=== PATIENT | male | born 1955 | race African-American/Black ===

== ENCOUNTER 2017-01-05 14:54 | Inpatient (IN) | payer MEDICARE, MEDICAID ==
[2017-01-05 16:44] LABS: Lactic Acid - Sepsis 1.1 mmol/L (0.5-2.2)
[2017-01-05] MEDS ORDERED: Acetaminophen 325 MG TAB PO PRN (17:07)
--- NOTE | 2017-01-05 17:57 | HP ---
PRIMARY CARE PHYSICIAN: Dell Crawford M.D. CHIEF COMPLAINT: Fever. HISTORY OF PRESENT ILLNESS: Mr. Flores is a pleasant 61-year-old gentleman who was seen at [facility] on 01/05/2017 following transfer from emergency room at [place]. He is able to provide limited history. Collateral history was obtained from review of the medical r ecord and discussion with the emergency room physician. Mr. Flores reportedly had fever of 104-104.9 degrees Fahrenheit. He reports that yesterday he fel t ill. He reports vomiting. He reports abdominal pain, but is unable to describe it further. He d enies any chest pain or shortness of breath. He ate breakfast today and felt warm to his caregiver. The caregiver brought him to the emergency room. Mr. Flores was hospitalized at [facility] from 11/03/2016-11/13/2016 for ac [place] on chronic kidney failure and bacteremia due to Klebsiella and Streptococcus. During that hospi talization, his PICC line was removed and he had Urbano catheter placed. The following complete review of systems was negative, unless otherwise mentioned in the HPI or belo w: Constitutional: Weight loss or gain, sense of well-being, ability to conduct usual activities, exer cise tolerance. Skin/Breast: Rash, itching, changes in hair growth or loss, nail changes, breast lumps, tenderness, swelling, nipple discharge. Eyes: Vision, double vision, tearing, blind spots, pain. ENT/Mouth: Headaches (location, time of onset, duration, precipitating factors), vertigo, lighthead edness, injury. Vision, double vision, tearing, blind spots, pain, nose bleeding, colds, obstruction , discharge, dental difficulties, gingival bleeding, dentures, neck stiffness, pain, tenderness, mas ses in thyroid or other areas. Cardiovascular: Precordial pain, substernal distress, palpitations, syncope, dyspnea on exertion, o rthopnea, nocturnal paroxysmal dyspnea, edema, cyanosis, hypertension, heart murmurs, varicosities, phlebitis, claudication. Respiratory: Pain, shortness of breath, wheezing, stridor, cough, hemoptysis, fever or night sweats . Gastrointestinal: Poor appetite, dysphagia, indigestion, abdominal pain, heartburn, eructation, tremayne sea, vomiting, hematemesis, jaundice, constipation, or diarrhea, abnormal stools (da-colored, lionel y, bloody, greasy, foul smelling), flatulence, hemorrhoids, recent changes in bowel habits. Genitourinary: Urgency, frequency, dysuria, nocturia, hematuria, polyuria, oliguria, unusual (or ch crista in) color of urine, stones, hesitancy, change in size of stream, dribbling, acute retention or incontinence, libido, potency. Musculoskeletal: Pain, swelling, redness or heat of muscles or joints, limitation, of motion, muscu lar weakness, atrophy, cramps. Neurologic/Psychiatric: Convulsions, paralyses, tremor, incoordination, paraesthesias, difficulties with memory of speech, sensory or motor disturbances, or muscular coordination (ataxia, tremor), em otional problems, anxiety, depression, previous psychiatric care, unusual perceptions, hallucination s. Allergy/Immunologic: Skin rash, anemia, bleeding tendency, polydipsia, polyuria, intolerance to hea t or cold. 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 ALLERGIES: The patient is allergic to CEFTRIAXONE and VANCOMYCIN. The allergy to VANCOMYCIN is unc lear. It also appears that he may have had an exfoliative reaction to MEROPENEM during the last hos pitalization. CURRENT MEDICATIONS: These include Tylenol p.r.n., Questran 8 grams 2 times a day, Lomotil daily, P robiotic 2 times a day, morphine sulfate 0.6 mL 4 times a day, multivitamins daily, olanzapine daily , Zofran 4 mg every 6 hours as needed. FAMILY HISTORY: Biological parents unknown. SOCIAL HISTORY: The patient lives at home with foster parents. No history of tobacco use, alcohol use or recreational drug use. PHYSICAL EXAMINATION: GENERAL: On examination, Mr. Flores is awake and alert, not in acute distress. VITAL SIGNS: Blood pressure is 87/50, pulse is 72, he is breathing at rate of 21 and saturating 94% on room air. He is afebrile. EYES: He has scleral icterus. No conjunctival pallor. ENT: Dry mucosal membranes, no oropharyngeal erythema or exudates. NECK: Supple, nontender, normal range of movement, trachea is midline. RESPIRATORY: Accessory muscles of breathing are not active. Chest wall movements are symmetric chandler aterally. LUNGS: Clear to auscultation without wheeze, rhonchi or crepitations. CARDIOVASCULAR: S1 and S2 are heard, regular. Peripheral pulses palpable. No carotid bruit, no pe ricardial rub. ABDOMEN: Soft, mild right upper quadrant tenderness, no guarding or rigidity, bowel sounds heard, n o hepatomegaly, no splenomegaly. He has right lower quadrant ostomy. NEUROLOGIC: Cranial nerves II-XII are intact. Deep tendon reflexes are 2+. MUSCULOSKELETAL: Power is 5/5 in all 4 extremities, normal range of movement at all major extremity joints. PSYCHIATRIC: Normal mood and normal affect, patient is oriented to person and place, not to time. SKIN: No rashes or subcutaneous nodules. LYMPHATIC: No cervical lymphadenopathy. LABORATORY DATA: Mr. Flores's labs and investigations were reviewed. He had a chest x-ray today at [facility] [place], which did not show any pulmonary infiltrates. He also had a CT scan of the abdomen and pelvis, which showed bibasilar atelectasis, wall thickening involving multiple loops of small b owel within the left upper quadrant of the abdomen, which may reflect enteritis, wall thickening inv olving the bladder which is stable compared to previous imaging. Laboratory investigations show terra kocytosis with 21,700 white cells, of which 87% are neutrophils, normocytic anemia with hemoglobin o f 10.5, normal platelet count, normal electrolytes, elevated blood urea nitrogen of 26, elevated cre atinine of 1.92, last known creatinine 1.50 on 12/29/2016, elevated total bilirubin of 2.4, elevated AST of 54, elevated ALT of 91, elevated alkaline phosphatase of 570, slightly elevated BNP of 104, normal albumin and urinalysis showing protein, ketones, and blood, but negative for nitrites and terra kocyte esterase. He also had a urine toxicology screen, which showed opiates. ASSESSMENT AND PLAN: Mr. Flores is a pleasant 61-year-old gentleman who was seen at [facility]. His problem list includes: 1. Sepsis: Suspected to be secondary to intra-abdominal infection. He will be admitted to the [facility] and treated with intravenous fluids as well as intravenous levofloxacin and Flagyl. I will al so request Infectious Disease Service consultation, given his previous complicated history with line infections. He currently has a Urbano catheter. In addition to the enteritis that was suspected on CT scan, his abnormal liver function tests raise the possibility of cholangitis. I will continue antibiotics and check ultrasound of the abdomen. 2. Chronic kidney disease: Renal function was done in the past. We will provide intravenous hydra tion and recheck. 3. Hypertension: Monitor vital signs, titrated antihypertensives as needed. 4. Schizoaffective disorder and mild mental retardation: Appears stable. 5. Gastroesophageal reflux disease: Stable. 6. We will consult dietitian regarding total parenteral nutrition. Patient reports that he also guillen s oral intake. Many thanks for allowing me to participate in your patient's care. Please feel free to contact me w ith any questions or concerns. LEVEL OF RISK: Moderate. LEVEL OF COMPLEXITY: Moderate.
[2017-01-05] MEDS ORDERED: Ondansetron ODT 4 MG TAB SL PRN (19:42)
[2017-01-05] MEDS ORDERED: Ondansetron HCl/PF 4 MG/2 ML Vial IVP PRN (19:42)
--- NOTE | 2017-01-05 19:43 | ULT ---
RIGHT UPPER QUADRANT ULTRASOUND: Date: 01-05-17 History: Abnormal liver function test. FINDINGS: Gallbladder is not visualized related to history of prior cholecystectomy. The liver is mildly enlarged in craniocaudal dimensions measuring 19 cm. No focal hepatic lesion is identified and the liver otherwise has a normal sonographic appearance. Common duct measures 0.75 cm in diameter which is within normal limits for post cholecystectomy farias ges. The limited visualized portions of the pancreas, visualized portions of the IVC, and right kidney de monstrate a normal sonographic appearance. The right kidney measures 11.5 cm in length. IMPRESSION: 1. Post cholecystectomy changes. 2. Mild hepatomegaly. Liver otherwise has a normal sonographic appearance. POS: [facility]
[2017-01-05] MEDS: Sodium Chloride 0.9% 1,000 ML IV SCH (21:29)
[2017-01-05] MEDS: Heparin 5,000 UNITS/ML VIAL SC SCH (21:29)
[2017-01-05] MEDS: metroNIDAZOLE 500 MG in Premix Bag 1 BAG IVPB SCH (22:37)
[2017-01-06] MEDS: metroNIDAZOLE 500 MG in Premix Bag 1 BAG IVPB SCH ×3 (05:18→22:28)
[2017-01-06 05:57] LABS: #Eosinphils 0.2 thou/uL (0.0-0.7); #Lymphocytes 2.1 thou/uL (1.20-3.40); #Monocytes 0.6 thou/uL (0.11-0.59); #Neutrophils 11.2 thou/uL (1.40-6.50); %Basophils 0.2 % (0.0-1.0); %Eosinophils 1.6 % (0.0-10.0); %Lymphocytes 14.7 % (21.0-51.0); %Monocytes 4.4 % (0.0-10.0); Hematocrit 30.2 % (42.0-52.0); Mean Platelet Volume 8.8 fL (7.4-10.4); Red Blood Cell (RBC) Count 3.47 mill/uL (4.70-6.10); White Blood Cell (WBC) Count 14.1 thou/uL (4.8-10.8)
[2017-01-06 06:21] LABS: Anion Gap 11 mmol/L (10-20); BUN (Urea Nitrogen) 26 mg/dL (8.4-25.7); Calc. Creatinine Clearance 76 mL/min (70-130); Calcium 8.5 mg/dL (7.8-10.44); Carbon Dioxide 21 mmol/L (22-29); Chloride 110 mmol/L (98-107); Estimated GFR-MDRD 68
[2017-01-06] MEDS: Heparin 5,000 UNITS/ML VIAL SC SCH ×3 (09:35→20:22)
[2017-01-06] MEDS: Sodium Chloride 0.9% 1,000 ML IV SCH ×3 (10:58→20:23)
--- NOTE | 2017-01-06 13:41 | PDOC.PN ---
- Subjective Encounter Start Date: 01/06/17 Encounter Start Time: 09:00 Pt seen for followup re: sepsis. Denies chest pain, shortness of bresath, fevers or chills. No nausea or vomiting. - Objective MAR Reviewed: Yes Vital Signs & Weight: Vital Signs (12 hours) Temp Pulse Resp BP Pulse Ox 01/06/17 08:00 97.9 F 50 L 18 118/70 18 L 01/06/17 04:00 96.4 F L 56 L 18 111/74 96 Weight Admit Weight 194 lb 1 oz Weight 194 lb 5 oz I&O: 01/05/17 01/06/17 01/07/17 06:59 06:59 06:59 Intake Total 900 0 Output Total 750 Balance 150 0 Result Diagrams: 01/07/17 04:07 01/07/17 04:07 EKG Reviewed by me: Yes (Tele: NSR) Phys Exam - Physical Examination Constitutional: NAD HEENT: moist MMs, oral pharynx no lesions Neck: supple Respiratory: no wheezing, no rales, no rhonchi, clear to auscultation bilateral Cardiovascular: RRR, no rub Gastrointestinal: soft, non-tender, no distention, positive bowel sounds RLQ ostomy+ Musculoskeletal: pulses present Neurological: moves all 4 limbs Psychiatric: normal affect Deviation from normal: Oriented to person and place, not to time Skin: no rash, normal turgor, cap refill <2 seconds Dx/Plan (1) Sepsis Code(s): A41.9 - SEPSIS, UNSPECIFIED ORGANISM Status: Acute (2) Leukocytosis Code(s): D72.829 - ELEVATED WHITE BLOOD CELL COUNT, UNSPECIFIED Status: Acute (3) On total parenteral nutrition (TPN) Code(s): Z78.9 - OTHER SPECIFIED HEALTH STATUS Status: Chronic (4) HTN (hypertension) Code(s): I10 - ESSENTIAL (PRIMARY) HYPERTENSION Status: Chronic (5) CKD (chronic kidney disease) stage 3, GFR 30-59 ml/min Code(s): N18.3 - CHRONIC KIDNEY DISEASE, STAGE 3 (MODERATE) Status: Chronic (6) Mental retardation Code(s): F79 - UNSPECIFIED INTELLECTUAL DISABILITIES Status: Chronic (7) Short gut syndrome Code(s): K91.2 - POSTSURGICAL MALABSORPTION, NOT ELSEWHERE CLASSIFIED Status: Chronic Comment: h/o total colectomy with ileostomy - Plan continue antibiotics, PT/OT, out of bed/ambulate, DVT proph w/heparin * . Continue levofloxacin and metronidazole, await cultures. Leucocytosis improving, pt is afebrile. Monitor vital signs, titrate antihypertensives as needed. Review of Systems - Review of Systems Constitutional: negative: Fever, Chills, Sweats, Weakness, Malaise Respiratory: negative: Cough, Dry, Shortness of Breath, Hemoptysis, SOB with Excertion, Pleuritic Pain, Sputum, Wheezing Cardiovascular: negative: Chest Pain, Palpitations, Orthopnea, Paroxysmal Noc. Dyspnea, Edema, Light Headedness Gastrointestinal: negative: Nausea, Vomiting, Abdominal Pain, Diarrhea, Constipation, Melena, Hematochezia Genitourinary: negative: Dysuria, Frequency, Incontinence, Hematuria, Retention - Medications/Allergies Allergies/Adverse Reactions: Allergies Allergy/AdvReac Type Severity Reaction Status Date / Time ceftriaxone sodium Allergy Verified 08/01/16 11:55 [From Rocephin] vancomycin Allergy Verified 11/11/16 11:59 Medications: Current Medications Acetaminophen (Tylenol) 650 mg PO Q4H PRN PRN Reason: Headache/Fever or Pain Heparin Sodium (Porcine) (Heparin) 5,000 units SC TID [facility] Last Admin: 01/06/17 09:35 Dose: 5,000 units Metronidazole 500 mg/ Device 100 mls @ 100 mls/hr IVPB Q8HR [facility] Last Admin: 01/06/17 05:18 Dose: 100 mls Sodium Chloride (Normal Saline 0.9%) 1,000 mls @ 100 mls/hr IV .Q10H [facility] Last Admin: 01/06/17 10:58 Dose: 1,000 mls Levofloxacin 500 mg/ Device 100 mls @ 100 mls/hr IVPB Q24HR [facility] Last Admin: 01/05/17 21:30 Dose: 100 mls Sodium Chloride (Flush - Normal Saline) 10 ml IVF Q12HR [facility] Last Admin: 01/06/17 11:55 Dose: Not Given Sodium Chloride (Flush - Normal Saline) 10 ml IVF PRN PRN PRN Reason: Saline Flush
[2017-01-07] MEDS: metroNIDAZOLE 500 MG in Premix Bag 1 BAG IVPB SCH ×3 (05:22→22:02)
[2017-01-07 05:45] LABS: #Eosinphils 0.1 thou/uL (0.0-0.7); #Lymphocytes 2.3 thou/uL (1.20-3.40); #Monocytes 0.6 thou/uL (0.11-0.59); #Neutrophils 8.4 thou/uL (1.40-6.50); %Basophils 0.1 % (0.0-1.0); %Eosinophils 1.1 % (0.0-10.0); %Monocytes 5.3 % (0.0-10.0); Hematocrit 33.6 % (42.0-52.0); Mean Platelet Volume 9.4 fL (7.4-10.4); Red Blood Cell (RBC) Count 3.86 mill/uL (4.70-6.10); White Blood Cell (WBC) Count 11.5 thou/uL (4.8-10.8)
[2017-01-07 05:58] LABS: Anion Gap 14 mmol/L (10-20); BUN (Urea Nitrogen) 21 mg/dL (8.4-25.7); Calc. Creatinine Clearance 74 mL/min (70-130); Calcium 9.1 mg/dL (7.8-10.44); Carbon Dioxide 19 mmol/L (22-29); Chloride 108 mmol/L (98-107); Estimated GFR-MDRD 67
[2017-01-07] MEDS: Heparin 5,000 UNITS/ML VIAL SC SCH ×3 (08:40→20:32)
[2017-01-07] MEDS ORDERED: ACIDOPHILUS PO SCH (09:00)
[2017-01-07] MEDS ORDERED: OLANZAPINE 7.5 MG PO SCH (09:00)
[2017-01-07] MEDS ORDERED: [UNRECOGNIZED DRUG - OTHER] PO SCH (09:00)
[2017-01-07] MEDS ORDERED: OLANZapine 5 MG TAB PO SCH (09:00)
[2017-01-07] MEDS ORDERED: Morphine IR 10 MG/5 ML UDCUP PO SCH (09:00)
[2017-01-07] MEDS ORDERED: BULGARICUS PO SCH (09:00)
[2017-01-07] MEDS ORDERED: Linezolid 600 MG in Premix Bag 1 BAG IVPB SCH (09:00)
[2017-01-07] MEDS ORDERED: [UNRECOGNIZED DRUG - OTHER] SC SCH (09:00)
[2017-01-07] MEDS: Lactinex Tablet PO SCH ×2 (09:44→20:31)
[2017-01-07] MEDS: Multivitamin W/ Minerals 1 TAB PO SCH (09:44)
[2017-01-07] MEDS: OLANZapine 5 MG TAB PO SCH (09:46)
[2017-01-07] MEDS: Sodium Chloride 0.9% 1,000 ML IV SCH ×2 (09:51→20:42)
--- NOTE | 2017-01-07 10:50 | PDOC.PN ---
- Subjective Encounter Start Date: 01/07/17 Encounter Start Time: 08:40 Pt seen for followup re: bacteremia. Denies chest pain, shortness of breath, fevers or chills. - Objective MAR Reviewed: Yes Vital Signs & Weight: Vital Signs (12 hours) Temp Pulse Resp BP Pulse Ox 01/07/17 08:00 97.7 F 64 18 117/64 97 01/07/17 00:00 97.7 F 58 L 16 129/68 98 Weight Admit Weight 194 lb 1 oz Weight 192 lb 0.001 oz I&O: 01/06/17 01/07/17 01/08/17 06:59 06:59 06:59 Intake Total 900 2160 240 Output Total 750 2550 Balance 150 -390 240 Result Diagrams: 01/07/17 04:07 01/07/17 04:07 Phys Exam - Physical Examination Constitutional: NAD HEENT: moist MMs, sclera anicteric, oral pharynx no lesions Neck: supple Respiratory: no wheezing, no rales, no rhonchi, clear to auscultation bilateral Cardiovascular: RRR, no rub Gastrointestinal: soft, non-tender, no distention, positive bowel sounds ostomy+ Musculoskeletal: pulses present Neurological: moves all 4 limbs Psychiatric: normal affect Deviation from normal: Oriented to person, place, not to time. Skin: no rash, normal turgor, cap refill <2 seconds Dx/Plan (1) Bacteremia Code(s): R78.81 - BACTEREMIA Status: Acute (2) Leukocytosis Code(s): D72.829 - ELEVATED WHITE BLOOD CELL COUNT, UNSPECIFIED Status: Acute (3) On total parenteral nutrition (TPN) Code(s): Z78.9 - OTHER SPECIFIED HEALTH STATUS Status: Chronic (4) HTN (hypertension) Code(s): I10 - ESSENTIAL (PRIMARY) HYPERTENSION Status: Chronic (5) CKD (chronic kidney disease) stage 3, GFR 30-59 ml/min Code(s): N18.3 - CHRONIC KIDNEY DISEASE, STAGE 3 (MODERATE) Status: Chronic (6) Mental retardation Code(s): F79 - UNSPECIFIED INTELLECTUAL DISABILITIES Status: Chronic (7) Short gut syndrome Code(s): K91.2 - POSTSURGICAL MALABSORPTION, NOT ELSEWHERE CLASSIFIED Status: Chronic Comment: h/o total colectomy with ileostomy (8) Sepsis Code(s): A41.9 - SEPSIS, UNSPECIFIED ORGANISM Status: Resolved - Plan continue antibiotics, DVT proph w/lovenox * . Pt has MSSE bacteremia (2/2 cultures), has Urbano catheter. Start Zyvox after sending repeat blood cultures, given his allergy to vancomycin. Continue levaquin and metronidazole for suspected colitis. Hold off on TPN for now. Review of Systems - Review of Systems Constitutional: negative: Fever, Chills, Sweats, Weakness, Malaise Respiratory: negative: Cough, Dry, Shortness of Breath, Hemoptysis, SOB with Excertion, Pleuritic Pain, Sputum, Wheezing Cardiovascular: negative: Chest Pain, Palpitations, Orthopnea, Paroxysmal Noc. Dyspnea, Edema, Light Headedness - Medications/Allergies Allergies/Adverse Reactions: Allergies Allergy/AdvReac Type Severity Reaction Status Date / Time ceftriaxone sodium Allergy Verified 08/01/16 11:55 [From Rocephin] vancomycin Allergy Verified 11/11/16 11:59 Medications: Current Medications Acetaminophen (Tylenol) 650 mg PO Q4H PRN PRN Reason: Headache/Fever or Pain Acidophilus (Floranex) 1 tab PO BID [facility] Last Admin: 01/07/17 09:44 Dose: 1 tab Lipase/Protease/Amylase ([place] [id number]) 1 cap PO TID-WM [facility] Cholestyramine Resin (Questran Light) 8 gm PO BID-WM [facility] Heparin Sodium (Porcine) (Heparin) 5,000 units SC TID [facility] Last Admin: 01/07/17 08:40 Dose: 5,000 units Metronidazole 500 mg/ Device 100 mls @ 100 mls/hr IVPB Q8HR [facility] Last Admin: 01/07/17 05:22 Dose: 100 mls Sodium Chloride (Normal Saline 0.9%) 1,000 mls @ 100 mls/hr IV .Q10H [facility] Last Admin: 01/07/17 09:51 Dose: 1,000 mls Levofloxacin 500 mg/ Device 100 mls @ 100 mls/hr IVPB Q24HR [facility] Last Admin: 01/06/17 20:23 Dose: 100 mls Linezolid 600 mg/ Device 300 mls @ 150 mls/hr IVPB Q12HR [facility] Amino Acids/Electrolytes/Dextrose (Aa 8.5%-D50w W/ Lytes) 2,000 mls @ 75 mls/ hr IV 1400 [facility] Iron/Minerals/Multivitamins (Theragran M) 1 tab PO DAILY [facility] Last Admin: 01/07/17 09:44 Dose: 1 tab Morphine Sulfate (Morphine Sulfate Ir) 1.2 mg PO QID [facility] Olanzapine (Zyprexa) 7.5 mg PO DAILY [facility] Last Admin: 01/07/17 09:46 Dose: 7.5 mg Pantoprazole Sodium (Protonix) 40 mg PO DAILY [facility] Last Admin: 01/07/17 09:44 Dose: 40 mg Teduglutide [Gattex] (0.3742 Ml) 0 each PO DAILY [facility] Sodium Chloride (Flush - Normal Saline) 10 ml IVF Q12HR [facility] Last Admin: 01/07/17 08:40 Dose: Not Given Sodium Chloride (Flush - Normal Saline) 10 ml IVF PRN PRN PRN Reason: Saline Flush
[2017-01-07] MEDS: Morphine IR 10 MG/5 ML UDCUP PO SCH ×4 (11:45→21:59)
[2017-01-07] MEDS ORDERED: Pancrelipase DR 12000 1 CAP PO SCH (12:00)
--- NOTE | 2017-01-07 12:08 | PQF ---
CLINICAL DOCUMENTATION IMPROVEMENT CLARIFICATION FORM: ICD-10 Updated PLEASE DO AN ADDENDUM TO THE PROGRESS NOTE WITH ANY DOCUMENTATION UPDATES OR ADDITIONS AND CARRY THROUGH TO DC SUMMARY. THANK YOU. DATE: 01/07/17 ATTN: Dr. Zamora / DR. SAHA Please exercise your independent, professional judgment in responding to the clarification form. Clinical indicators are provided on the bottom of this form for your review Please check appropriate box(s): [ ] Colitis: Type: [ ] Infectious Colitis [ ] Noninfectious Colitis [ ] Other specified [ x] Other diagnosis __MRSE bacteremia with sepsis [ ] Unable to determine For continuity of documentation, please document condition throughout progress notes and discharge summary. Thank You. CLINICAL INDICATORS - SIGNS / SYMPTOMS / LABS H&P: REPORTEDLY HAD FEVER OF 104-104.9. REPORTS VOMITING, ABDOMINAL PAIN. SEPSIS: SUSPECTED TO BE SECONDARY TO INTRA-ABDOMINAL INFECTION. PN 10/: SUSPECTED COLITIS RISKS: H&P: HX SIGNIFICANT FOR SHORT BOWEL SYNDROME SECONDARY TO MULTIPLE ABDOMINAL SURGERIES. COLOSTOMY. TREATMENT: CPOE 10: FLAGYL 500MG IV Q 8 HR LEVAQUIN 500 MG IV Q 24 HR CPOE 10/11: ZYVOX 600 MG IV Q 12 HR THANK YOU NAHOMI (This form is maintained as a part of the permanent medical record) 2015 [employer]. All Rights Reserved Nahomi Omalley RN, [email or web address] Office: [phone] [facility]
[2017-01-07] MEDS: Pancrelipase DR 12000 1 CAP PO SCH ×2 (13:48→17:12)
[2017-01-07] MEDS ORDERED: [UNRECOGNIZED DRUG - OTHER] IV SCH (14:00)
[2017-01-07] MEDS ORDERED: LYTES IV SCH ×2 (14:00→19:00)
[2017-01-07] MEDS: Linezolid 600 MG in Premix Bag 1 BAG IVPB SCH (16:41)
[2017-01-07] MEDS: Cholestyramine/Aspartame 4 gm Packet PO SCH (16:42)
[2017-01-07] MEDS ORDERED: [UNRECOGNIZED DRUG - OTHER] IV SCH (19:00)
--- NOTE | 2017-01-07 21:22 | CON ---
DATE OF CONSULTATION: 01/07/2017 CHIEF COMPLAINT: Fever. HISTORY OF PRESENT ILLNESS: Mr. Flores is a 61-year-old man who was admitted to the emergency sara due to a fever of over 104 degrees. He developed nausea and vomiting on 01/04/2017 and some vague abdominal pain and was ultimately admitted through the ER on 01/05/2017. He has been in and out of the hospital numerous times with dehydration due to short bowel syndrome. However, since starting Gattex to stimulate small bowel mucosal growth, he has improved from that standpoint. He was admitt ed back in October with bacteremia due to Klebsiella and Streptococcus and had a PICC line removed an d replaced at that point. His nausea and vomiting has resolved. He currently denies any abdominal pain. He has been up walking around the [facility] and conversing with the staff without any acute compla ints. He did have a CT scan performed on his abdomen when he was admitted that showed some thickene d small bowel in the left upper quadrant. He also had some thickening of the bladder wall. He was started on levofloxacin and Flagyl for suspected intraabdominal infection; however, since then he guillen s grown methicillin-resistant Staph epidermidis from his blood cultures [address] arted on linezolid. He does not report an increase in his ostomy output. PAST MEDICAL HISTORY: Short gut syndrome, chronic kidney disease, hypertension, gastroesophageal re flux disease, albinism, schizoaffective disorder. PAST SURGICAL HISTORY: He has had bowel resection. FAMILY HISTORY: Unknown. SOCIAL HISTORY: No alcohol, tobacco or drugs. ALLERGIES: CEFTRIAXONE, VANCOMYCIN and possibly MEROPENEM. CURRENT MEDICATIONS: Include acidophilus, cholestyramine, linezolid, levofloxacin, metronidazole, p antoprazole, olanzapine, heparin, and currently Gattex is on hold and TPN is on hold. REVIEW OF SYSTEMS: Negative x10 systems reviewed except as stated in the history of present illness . PHYSICAL EXAMINATION: VITAL SIGNS: Temperature 97.7, pulse 64, blood pressure 117/64. GENERAL: He is in no acute distress. He is awake and alert. HEENT: Eyes have no scleral icterus. Oropharynx is clear, without lesions. NECK: No cervical or supraclavicular lymphadenopathy. LUNGS: Clear to auscultation bilaterally. HEART: Regular rate and rhythm without murmur. ABDOMEN: Soft, nontender, nondistended. Bowel sounds are present. He has ileostomy in place. EXTREMITIES: No lower extremity edema. LABORATORY DATA: White blood cell count is 11.5 down from 14.1 on presentation, hemoglobin 10.5, pl atelets 236. INR 1.0. Creatinine 1.32. IMPRESSION: 1. Abnormal CT scan showing thickening of the small intestine. This is nonspecific. He could have a viral gastroenteritis or this could be artifact. There is no bloody stool or ongoing abdominal p ain or tenderness. 2. Methicillin-resistant Staphylococcus epidermidis. This should be more likely from line infectio n or other source other than abdominal source. He has been started on linezolid and so we should be able to taper the other antibiotics. 3. Chronic cholestasis. His alkaline phosphatase has been persistently elevated and his bilirubin has increased further. This is likely secondary to the TPN. His TPN is held for now. RECOMMENDATIONS: 1. We will give a lactose restricted diet. 2. Stop levofloxacin and metronidazole. 3. TPN is held for now. 4. Follow ostomy output.
[2017-01-08] MEDS: Linezolid 600 MG in Premix Bag 1 BAG IVPB SCH ×2 (02:27→16:41)
[2017-01-08 06:01] LABS: Anion Gap 7 mmol/L (10-20); BUN (Urea Nitrogen) 14 mg/dL (8.4-25.7); Calc. Creatinine Clearance 79 mL/min (70-130); Carbon Dioxide 25 mmol/L (22-29); Chloride 106 mmol/L (98-107); Estimated GFR-MDRD 72
[2017-01-08] MEDS: metroNIDAZOLE 500 MG in Premix Bag 1 BAG IVPB SCH ×2 (06:12→14:56)
[2017-01-08] MEDS: Sodium Chloride 0.9% 1,000 ML IV SCH ×2 (06:14→16:42)
[2017-01-08 06:27] LABS: Band 2 % (5-11); Hematocrit 33.7 % (42.0-52.0); Mean Platelet Volume 9.2 fL (7.4-10.4); Myelocyte 1 % (0-0); Neutrophil 68 % (42-75); Red Blood Cell (RBC) Count 3.93 mill/uL (4.70-6.10); White Blood Cell (WBC) Count 8.3 thou/uL (4.8-10.8)
[2017-01-08 07:09] LABS: ALT (SGPT) 53 U/L (8-55); AST (SGOT) 28 U/L (5-34); Alkaline Phosphatase 528 U/L (40-150); Globulin 3.7 g/dL (2.4-3.5); Protein, Total 6.7 g/dL (6.0-8.3)
[2017-01-08] MEDS: Cholestyramine/Aspartame 4 gm Packet PO SCH ×2 (08:30→16:43)
[2017-01-08] MEDS: Heparin 5,000 UNITS/ML VIAL SC SCH ×3 (08:31→22:36)
[2017-01-08] MEDS: Pancrelipase DR 12000 1 CAP PO SCH ×3 (08:31→18:17)
[2017-01-08] MEDS: Lactinex Tablet PO SCH ×2 (08:31→22:35)
[2017-01-08] MEDS: OLANZapine 5 MG TAB PO SCH (08:32)
[2017-01-08] MEDS: Multivitamin W/ Minerals 1 TAB PO SCH (08:32)
[2017-01-08] MEDS: Morphine IR 10 MG/5 ML UDCUP PO SCH ×4 (10:18→22:36)
[2017-01-08] MEDS: [UNRECOGNIZED DRUG - OTHER] SC SCH ×2 (11:33→12:54)
[2017-01-08] MEDS ORDERED: MULTIVITAMINS IV SCH (14:00)
[2017-01-08] MEDS ORDERED: FAT EMULSION IV SCH ×2 (14:00)
[2017-01-08] MEDS ORDERED: [UNRECOGNIZED DRUG - OTHER] IV SCH (14:00)
[2017-01-08] MEDS ORDERED: LYTES IV SCH ×3 (14:00)
[2017-01-08] MEDS ORDERED: MULTITRACE IV SCH (14:00)
[2017-01-08] MEDS ORDERED: [UNRECOGNIZED DRUG - OTHER] IV SCH ×2 (14:00)
--- NOTE | 2017-01-08 14:14 | PDOC.PN ---
- Subjective Encounter Start Date: 01/08/17 Encounter Start Time: 10:15 Subjective: awake, no abd pain -: no nausea or weakness, responds well to verbal stimuli -: is tolerating oral diet - Objective MAR Reviewed: Yes Vital Signs & Weight: Vital Signs (12 hours) Temp Pulse Resp BP Pulse Ox 01/08/17 08:00 97.7 F 55 L 20 134/72 97 Weight Admit Weight 194 lb 1 oz Weight 193 lb I&O: 01/07/17 01/08/17 01/09/17 06:59 06:59 06:59 Intake Total 2160 3250 300 Output Total 2550 2950 300 Balance -390 300 0 Result Diagrams: 01/08/17 05:26 01/08/17 05:26 Phys Exam - Physical Examination HEENT: PERRLA, moist MMs Neck: no JVD, supple Respiratory: no wheezing, no rales Cardiovascular: RRR, no significant murmur Gastrointestinal: soft, non-tender, positive bowel sounds ileostomy has liq stool Musculoskeletal: no edema, pulses present Neurological: non-focal, moves all 4 limbs Dx/Plan (1) Bacteremia Code(s): R78.81 - BACTEREMIA Status: Acute Comment: MRSE bacteremia (2) Sepsis Code(s): A41.9 - SEPSIS, UNSPECIFIED ORGANISM Status: Acute Comment: mrse bacteremia (3) HTN (hypertension) Code(s): I10 - ESSENTIAL (PRIMARY) HYPERTENSION Status: Chronic Qualifiers: Hypertension type: essential hypertension Qualified Code(s): I10 - Essential (primary) hypertension (4) Anemia, normocytic normochromic Code(s): D64.9 - ANEMIA, UNSPECIFIED Status: Chronic (5) CKD (chronic kidney disease) stage 3, GFR 30-59 ml/min Code(s): N18.3 - CHRONIC KIDNEY DISEASE, STAGE 3 (MODERATE) Status: Chronic (6) FTT (failure to thrive) in adult Status: Chronic (7) HTN (hypertension) Code(s): I10 - ESSENTIAL (PRIMARY) HYPERTENSION Status: Chronic Qualifiers: Hypertension type: essential hypertension (8) Mental retardation Code(s): F79 - UNSPECIFIED INTELLECTUAL DISABILITIES Status: Chronic (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 Review of Systems - Medications/Allergies Allergies/Adverse Reactions: Allergies Allergy/AdvReac Type Severity Reaction Status Date / Time ceftriaxone sodium Allergy Verified 08/01/16 11:55 [From Rocephin] vancomycin Allergy Verified 11/11/16 11:59 Medications: Current Medications Acetaminophen (Tylenol) 650 mg PO Q4H PRN PRN Reason: Headache/Fever or Pain Acidophilus (Floranex) 1 tab PO BID [facility] Last Admin: 01/08/17 08:31 Dose: 1 tab Lipase/Protease/Amylase (Sarthak Quiroga [id number]) 1 cap PO TID-[facility] Last Admin: 01/08/17 12:53 Dose: 1 cap Cholestyramine Resin (Questran Light) 8 gm PO BID-[facility] Last Admin: 01/08/17 08:30 Dose: 8 gm Heparin Sodium (Porcine) (Heparin) 5,000 units SC TID [facility] Last Admin: 01/08/17 08:31 Dose: 5,000 units Sodium Chloride (Normal Saline 0.9%) 1,000 mls @ 100 mls/hr IV .Q10H [facility] Last Admin: 01/08/17 06:14 Dose: Not Given Linezolid 600 mg/ Device 300 mls @ 150 mls/hr IVPB Q12H [facility] Last Admin: 01/08/17 02:27 Dose: 300 mls Multivitamins 10 ml/ Chromium/Copper/Manganese/Seleni/Zn 5 ml/ Amino Acids/ Electrolytes/Dextrose 2,015 mls @ 90 mls/hr IV [id number]@1400 [facility] Multivitamins 10 ml/ Chromium/Copper/Manganese/Seleni/Zn 5 ml/ Amino Acids/ Electrolytes/Dextrose/ Fat Emulsion Intravenous 2,115 mls @ 90 mls/hr IV TuTh@ 1400 [facility] Iron/Minerals/Multivitamins (Theragran M) 1 tab PO DAILY [facility] Last Admin: 01/08/17 08:32 Dose: 1 tab Morphine Sulfate (Morphine Sulfate Ir) 1.2 mg PO QID [facility] Last Admin: 01/08/17 10:18 Dose: 1.2 mg Olanzapine (Zyprexa) 7.5 mg PO DAILY [facility] Last Admin: 01/08/17 08:32 Dose: 7.5 mg Pantoprazole Sodium (Protonix) 40 mg PO DAILY [facility] Last Admin: 01/08/17 08:32 Dose: 40 mg Teduglutide [Gattex] (0.3742 Ml) 0 each SC DAILY [facility] Last Admin: 01/08/17 12:54 Dose: 1 each Sodium Chloride (Flush - Normal Saline) 10 ml IVF Q12HR [facility] Last Admin: 01/08/17 08:49 Dose: Not Given Sodium Chloride (Flush - Normal Saline) 10 ml IVF PRN PRN PRN Reason: Saline Flush
--- NOTE | 2017-01-08 19:05 | PRG ---
DATE OF SERVICE: 01/08/2017 SUBJECTIVE: Mr. Flores has no pain and no acute complaints. OBJECTIVE: VITAL SIGNS: Temperature 97.7, pulse 55, blood pressure 134/72. Stool output was recorded at 1850 mL, urine 300 mL. Intake was recorded at 700 mL. LUNGS: Clear to auscultation bilaterally. HEART: Regular rate and rhythm. ABDOMEN: Soft, nontender, nondistended. Bowel sounds are present. EXTREMITIES: No lower extremity edema. LABORATORY DATA: Creatinine is improved to 1.24. IMPRESSION: 1. Short gut syndrome. He has had repeated hospitalizations for dehydration due to this. He has h ad improvement since starting Gattex to increase small bowel absorptive capacity. Also, he has been receiving TPN at night. As his oral intake has improved and his output has decreased with the Gatt ex, the TPN managed by Dr. Hunt as an outpatient has been decreased in calories and decreased in liq uid intake, but continued with significant volume to the evening I believe it 1500 mL. He will like ly need to continue with the nighttime infusions of the fluids and lower dose TPN. He had increased weight over the last month. RECOMMENDATIONS: 1. Continue oral diet as he tolerates it. 2. Restart TPN in the evenings with 1500 mL fluid volume plus lower dose amino acid and dextrose. He has had the lipids reduced to twice per week. 3. He was MRSE positive, which is likely from IV source rather than abdominal source. 4. 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 Again, the caloric intake and liquid intake is being redu mike in the TPN, but this is going to be slowly tapered over time as an outpatient. We would not sonia n to completely stop this currently.
[2017-01-09] MEDS: Sodium Chloride 0.9% 1,000 ML IV SCH ×3 (02:55→21:22)
[2017-01-09] MEDS: Linezolid 600 MG in Premix Bag 1 BAG IVPB SCH ×2 (03:50→16:14)
[2017-01-09 06:29] LABS: ALT (SGPT) 40 U/L (8-55); AST (SGOT) 20 U/L (5-34); Alkaline Phosphatase 486 U/L (40-150); Anion Gap 10 mmol/L (10-20); BUN (Urea Nitrogen) 13 mg/dL (8.4-25.7); Bilirubin, Total 0.8 mg/dL (0.2-1.2); Calc. Creatinine Clearance 67 mL/min (70-130); Calcium 9.1 mg/dL (7.8-10.44); Carbon Dioxide 25 mmol/L (22-29); Chloride 107 mmol/L (98-107); Estimated GFR-MDRD 59; Globulin 3.7 g/dL (2.4-3.5); Protein, Total 6.6 g/dL (6.0-8.3)
[2017-01-09] MEDS: Cholestyramine/Aspartame 4 gm Packet PO SCH ×2 (09:19→16:49)
[2017-01-09] MEDS: Lactinex Tablet PO SCH ×2 (09:22→21:23)
[2017-01-09] MEDS: Pancrelipase DR 12000 1 CAP PO SCH ×3 (09:22→16:50)
[2017-01-09] MEDS: OLANZapine 5 MG TAB PO SCH (09:22)
[2017-01-09] MEDS: Multivitamin W/ Minerals 1 TAB PO SCH (09:22)
[2017-01-09] MEDS: Heparin 5,000 UNITS/ML VIAL SC SCH ×3 (09:24→21:26)
[2017-01-09] MEDS: [UNRECOGNIZED DRUG - OTHER] SC SCH (09:26)
[2017-01-09] MEDS: Morphine IR 10 MG/5 ML UDCUP PO SCH ×4 (09:32→21:22)
[2017-01-09] MEDS: Multivitamins, Adult 10 ML, Multitrace-5 5 ML in D50W-AA 8.5% with Lytes 2,000 ML IV SCH ×6 (13:43→19:24)
[2017-01-09] MEDS ORDERED: LYTES IV SCH (14:00)
[2017-01-09] MEDS ORDERED: [UNRECOGNIZED DRUG - OTHER] IV SCH (14:00)
--- NOTE | 2017-01-09 14:56 | PDOC.PN ---
- Subjective Encounter Start Date: 01/09/17 Encounter Start Time: 09:30 Subjective: awake, no abd pain or nausea - Objective MAR Reviewed: Yes Vital Signs & Weight: Vital Signs (12 hours) Temp Pulse Resp BP Pulse Ox 01/09/17 08:18 55 L 16 123/72 98 01/09/17 08:00 97.7 F 55 L 16 Weight Admit Weight 194 lb 1 oz Weight 192 lb 10.944 oz I&O: 01/08/17 01/09/17 01/10/17 06:59 06:59 06:59 Intake Total 3250 4185 3200 Output Total 2950 3600 1500 Balance 170 951 9318 Result Diagrams: 01/08/17 05:26 01/09/17 05:29 Phys Exam - Physical Examination HEENT: PERRLA, sclera anicteric Neck: no JVD, supple Respiratory: no wheezing, no rales Cardiovascular: RRR, no significant murmur Gastrointestinal: soft, non-tender, positive bowel sounds ileostomy has watery stool Musculoskeletal: no edema, pulses present Neurological: non-focal, moves all 4 limbs Dx/Plan (1) Bacteremia Code(s): R78.81 - BACTEREMIA Status: Acute Comment: MRSE bacteremia (2) Sepsis Code(s): A41.9 - SEPSIS, UNSPECIFIED ORGANISM Status: Acute Comment: mrse bacteremia (3) HTN (hypertension) Code(s): I10 - ESSENTIAL (PRIMARY) HYPERTENSION Status: Chronic Qualifiers: Hypertension type: essential hypertension Qualified Code(s): I10 - Essential (primary) hypertension (4) Anemia, normocytic normochromic Code(s): D64.9 - ANEMIA, UNSPECIFIED Status: Chronic (5) CKD (chronic kidney disease) stage 3, GFR 30-59 ml/min Code(s): N18.3 - CHRONIC KIDNEY DISEASE, STAGE 3 (MODERATE) Status: Chronic (6) FTT (failure to thrive) in adult Status: Chronic (7) HTN (hypertension) Code(s): I10 - ESSENTIAL (PRIMARY) HYPERTENSION Status: Chronic Qualifiers: Hypertension type: essential hypertension (8) Mental retardation Code(s): F79 - UNSPECIFIED INTELLECTUAL DISABILITIES Status: Chronic (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 Review of Systems - Medications/Allergies Allergies/Adverse Reactions: Allergies Allergy/AdvReac Type Severity Reaction Status Date / Time ceftriaxone sodium Allergy Verified 08/01/16 11:55 [From Rocephin] vancomycin Allergy Verified 11/11/16 11:59 Medications: Current Medications Acetaminophen (Tylenol) 650 mg PO Q4H PRN PRN Reason: Headache/Fever or Pain Acidophilus (Floranex) 1 tab PO BID [facility] Last Admin: 01/09/17 09:22 Dose: 1 tab Lipase/Protease/Amylase ([place] [id number]) 1 cap PO TID-[facility] Last Admin: 01/09/17 13:35 Dose: 1 cap Cholestyramine Resin (Questran Light) 8 gm PO BID-[facility] Last Admin: 01/09/17 09:19 Dose: 8 gm Heparin Sodium (Porcine) (Heparin) 5,000 units SC TID [facility] Last Admin: 01/09/17 09:24 Dose: 5,000 units Sodium Chloride (Normal Saline 0.9%) 1,000 mls @ 100 mls/hr IV .Q10H [facility] Last Admin: 01/09/17 02:55 Dose: 1,000 mls Linezolid 600 mg/ Device 300 mls @ 150 mls/hr IVPB Q12H [facility] Last Admin: 01/09/17 03:50 Dose: 300 mls Multivitamins 10 ml/ Chromium/Copper/Manganese/Seleni/Zn 5 ml/ Amino Acids/ Electrolytes/Dextrose 2,015 mls @ 90 mls/hr IV [id number]@1400 [facility] Last Admin: 01/09/17 13:43 Dose: Not Given Multivitamins 10 ml/ Chromium/Copper/Manganese/Seleni/Zn 5 ml/ Amino Acids/ Electrolytes/Dextrose/ Fat Emulsion Intravenous 2,115 mls @ 90 mls/hr IV TuTh@ 1400 [facility] Last Admin: 01/08/17 21:35 Dose: 2,115 mls Iron/Minerals/Multivitamins (Theragran M) 1 tab PO DAILY [facility] Last Admin: 01/09/17 09:22 Dose: 1 tab Morphine Sulfate (Morphine Sulfate Ir) 1.2 mg PO QID [facility] Last Admin: 01/09/17 14:16 Dose: 1.2 mg Olanzapine (Zyprexa) 7.5 mg PO DAILY [facility] Last Admin: 01/09/17 09:22 Dose: 7.5 mg Pantoprazole Sodium (Protonix) 40 mg PO DAILY [facility] Last Admin: 01/09/17 09:22 Dose: 40 mg Teduglutide [Gattex] (0.3742 Ml) 0 each SC DAILY [facility] Last Admin: 01/09/17 09:26 Dose: 1 each Sodium Chloride (Flush - Normal Saline) 10 ml IVF Q12HR [facility] Last Admin: 01/09/17 13:35 Dose: 10 ml Sodium Chloride (Flush - Normal Saline) 10 ml IVF PRN PRN PRN Reason: Saline Flush
--- NOTE | 2017-01-09 16:28 | PRG ---
DATE OF SERVICE: 01/09/2017 SUBJECTIVE: He has no acute complaints. No abdominal pain. He is eating 100% of his meals. OBJECTIVE: VITAL SIGNS: Temperature 97.7, pulse 55, blood pressure 123/72. GENERAL: He is in no acute distress, awake and alert. LUNGS: Clear to auscultation bilaterally. HEART: Regular rate and rhythm. ABDOMEN: Soft, nontender, nondistended. Bowel sounds are present. EXTREMITIES: No lower extremity edema. LABORATORY DATA: His creatinine increased to 1.47 today. His output yesterday from his ostomy was 2500 mL. IMPRESSION: 1. Short gut syndrome. He has frequent readmissions with dehydration secondary to high ileostomy o utput. He has, therefore, been receiving nocturnal TPN with increased fluids to help prevent dehydr ation. He has had fewer admissions for dehydration since starting Gattex to increase absorptive cap acity of the small bowel. He is eating 100% of his meals. However, it is difficult to determine wh at percent of this he is actually absorbing. 2. Methicillin-resistant Staphylococcus epidermidis bacteremia, likely secondary to line infection. Dr. Negrete is evaluating to determine whether or not the line needs to be exchanged. 3. 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 It appears that his ileostomy output is still significant, as his last 24 hours he put out 2500 mL. His creatinine increased overnight and he appears dry. He will need to continue the TPN with a lar marlon volume of fluid, and hopefully, however, he is absorbing adequate nutritional intake by mouth vivar ch that we can further decrease the TPN due to the cholestatic liver disease. RECOMMENDATIONS: 1. I have spoken with the dietitian to assist with adjustment in the TPN to increase the fluid and decrease the calories. He takes lipids twice per week. 2. He remains on linezolid for MRSE bacteremia. 3. Dr. Gill will cover the weekend.
--- NOTE | 2017-01-09 22:27 | CON ---
DATE OF CONSULTATION: 01/09/2017 REASON FOR CONSULTATION: Bacteremia. HISTORY OF PRESENT ILLNESS: A 61-year-old patient known to us from prior visits with history of oscar acolon, status post total colectomy and then various complications with adhesions, which led to smal l bowel resection and development of short gut syndrome, volume depletion, episodes of renal insuffi ciency related to it and multiple admissions for those complications. During one of those episodes, patient developed acute renal failure, which required temporary hemodialysis. He also has had the bacteremia associated with Staph aureus and line colonization. The patient has had an exfoliative e rythroderma in the past, felt to be due to beta-lactam either meropenem or cephalosporins. PAST MEDICAL HISTORY: History of schizoaffective disorder, albinism, chronic hypokalemia and hypert ension. PAST SURGICAL HISTORY: Multiple abdominal surgeries for management of megacolon and eventually ileo stomy recurring obstruction of the small bowel, which led to admission and short bowel syndrome. ALLERGIES: CEFTRIAXONE and MEROPENEM. MEDICATIONS: Currently receiving Floranex, Creon, Questran, Zyvox and chromium. FAMILY HISTORY: Not available. SOCIAL HISTORY: Lives in a foster home, never smoker. PHYSICAL EXAMINATION: VITAL SIGNS: The patient has been afebrile during the hospital stay. Blood pressure 120/72, pulse 55. GENERAL: Appears in no distress. SKIN: Normal. The patient has a Urbano catheter with no inflammatory changes. The patient has a prolapsed and everted ileostomy, soft stool in the ileostomy bag. No lymphadenopathy. HEENT: Ocular movements are conjugate. Pupils are equal. Nasal passages are patent. Oral cavity with numerous missing teeth. The remainder ones with quite a bit of decay. NECK: Supple. No jugular venous distention. LUNGS: With symmetric clear breath sounds. No wheezing. HEART: S1 and S2 with regular rate and rhythm. No S3 or S4. ABDOMEN: Soft with no tenderness. EXTREMITIES: No joint inflammatory activity. Pulses are 1+ in dorsalis pedis. Plantar responses a re flexor. NEUROLOGIC: Awake and oriented, fairly decent memory actually, follows commands and pleasant. LABORATORY DATA: White cell count down from 14-8.3, hemoglobin 10, platelets 224 and 60% neutrophil s. Sodium 138, creatinine 1.47 with alkaline phosphatase 486. Microbiology with Staphylococcus sap rophyticus 2/2 sets and then from two days ago the Staphylococcus epidermides when he was admitted. ASSESSMENT: 1. Short gut syndrome following total colectomy and partial small bowel resection. 2. Recurring episodes of small bowel obstruction in the past, which led to admission. 3. Short gut syndrome with volume depletion and episodes of renal insufficiency. 4. Prior episodes of bacteremia associated with central line access. 5. Fever with abdominal pain and vomiting. 6. Bacteremia. DISCUSSION: The organisms isolated are two different strains of coagulase-negative staphylococci. All four samples are from phlebotomy or peripheral vein, none of them are from the Urbano catheter, so it is more likely that this represents contamination of the sample rather than true bacteremia. We will ask for 2 samples to be drawn from the Urbano catheter at this time and then further manag ement according to results of cultures. Withhold the antimicrobial therapy for now.
[2017-01-10] MEDS: Sodium Chloride 0.9% 1,000 ML IV SCH ×2 (05:38→16:07)
[2017-01-10 06:47] LABS: Chloride 109 mmol/L (98-107); Magnesium 1.7 mg/dL (1.6-2.6)
[2017-01-10 06:48] LABS: Calcium 9.4 mg/dL (7.8-10.44)
[2017-01-10 06:49] LABS: Globulin 3.7 g/dL (2.4-3.5); Protein, Total 6.9 g/dL (6.0-8.3)
[2017-01-10 06:50] LABS: Bilirubin, Total 0.8 mg/dL (0.2-1.2); Carbon Dioxide 23 mmol/L (22-29)
[2017-01-10 06:51] LABS: Alkaline Phosphatase 532 U/L (40-150)
[2017-01-10 06:52] LABS: Calc. Creatinine Clearance 73 mL/min (70-130); Estimated GFR-MDRD 65; Phosphorus 3.7 mg/dL (2.3-4.7)
[2017-01-10 06:53] LABS: BUN (Urea Nitrogen) 13 mg/dL (8.4-25.7)
[2017-01-10 06:54] LABS: ALT (SGPT) 36 U/L (8-55); AST (SGOT) 21 U/L (5-34)
[2017-01-10 07:13] LABS: Anion Gap 11 mmol/L (10-20)
[2017-01-10] MEDS: [UNRECOGNIZED DRUG - REMARK] FS SCH (07:27)
[2017-01-10] MEDS: Cholestyramine/Aspartame 4 gm Packet PO SCH ×2 (08:44→16:57)
[2017-01-10] MEDS: Morphine IR 10 MG/5 ML UDCUP PO SCH ×4 (08:45→21:30)
[2017-01-10] MEDS: OLANZapine 5 MG TAB PO SCH (08:46)
[2017-01-10] MEDS: Lactinex Tablet PO SCH ×2 (08:47→21:33)
[2017-01-10] MEDS: Multivitamin W/ Minerals 1 TAB PO SCH (08:47)
[2017-01-10] MEDS: Heparin 5,000 UNITS/ML VIAL SC SCH ×3 (08:47→21:33)
[2017-01-10] MEDS: Pancrelipase DR 12000 1 CAP PO SCH ×3 (08:47→16:57)
[2017-01-10] MEDS: [UNRECOGNIZED DRUG - OTHER] SC SCH (09:01)
--- NOTE | 2017-01-10 12:41 | PDOC.PN ---
- Subjective Encounter Start Date: 01/10/17 Encounter Start Time: 08:20 Subjective: awake, not in distress -: is amb well on floor - Objective MAR Reviewed: Yes Vital Signs & Weight: Vital Signs (12 hours) Temp Pulse Resp BP Pulse Ox 01/10/17 08:00 97.5 F L 55 L 16 97 01/10/17 07:40 97.5 F L 55 L 16 154/74 H 97 Weight Admit Weight 194 lb 1 oz Weight 192 lb 10.944 oz I&O: 01/09/17 01/10/17 01/11/17 06:59 06:59 06:59 Intake Total 4185 8130 120 Output Total 3600 3200 1700 Balance 585 4930 -1580 Result Diagrams: 01/08/17 05:26 01/10/17 06:17 Phys Exam - Physical Examination HEENT: PERRLA, sclera anicteric Neck: no JVD, supple Respiratory: no wheezing, no rales Cardiovascular: RRR, no significant murmur Gastrointestinal: soft, no distention, positive bowel sounds ileostomy has liq stool Musculoskeletal: no edema, pulses present Neurological: non-focal, moves all 4 limbs Dx/Plan (1) Bacteremia Code(s): R78.81 - BACTEREMIA Status: Acute Comment: staph saprophyticus, ? contaminant (2) Sepsis Code(s): A41.9 - SEPSIS, UNSPECIFIED ORGANISM Status: Acute Comment: staph bacteremia (3) HTN (hypertension) Code(s): I10 - ESSENTIAL (PRIMARY) HYPERTENSION Status: Chronic Qualifiers: Hypertension type: essential hypertension Qualified Code(s): I10 - Essential (primary) hypertension (4) Anemia, normocytic normochromic Code(s): D64.9 - ANEMIA, UNSPECIFIED Status: Chronic (5) CKD (chronic kidney disease) stage 3, GFR 30-59 ml/min Code(s): N18.3 - CHRONIC KIDNEY DISEASE, STAGE 3 (MODERATE) Status: Chronic (6) FTT (failure to thrive) in adult Status: Chronic (7) HTN (hypertension) Code(s): I10 - ESSENTIAL (PRIMARY) HYPERTENSION Status: Chronic Qualifiers: Hypertension type: essential hypertension (8) Mental retardation Code(s): F79 - UNSPECIFIED INTELLECTUAL DISABILITIES Status: Chronic (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 Review of Systems - Medications/Allergies Allergies/Adverse Reactions: Allergies Allergy/AdvReac Type Severity Reaction Status Date / Time ceftriaxone sodium Allergy Verified 08/01/16 11:55 [From Rocephin] vancomycin Allergy Verified 11/11/16 11:59 Medications: Current Medications Acetaminophen (Tylenol) 650 mg PO Q4H PRN PRN Reason: Headache/Fever or Pain Acidophilus (Floranex) 1 tab PO BID [facility] Last Admin: 01/10/17 08:47 Dose: 1 tab Lipase/Protease/Amylase ([place] [id number]) 1 cap PO TID-[facility] Last Admin: 01/10/17 12:21 Dose: 1 cap Cholestyramine Resin (Questran Light) 8 gm PO BID-[facility] Last Admin: 01/10/17 08:44 Dose: 8 gm Heparin Sodium (Porcine) (Heparin) 5,000 units SC TID [facility] Last Admin: 01/10/17 08:47 Dose: 5,000 units Sodium Chloride (Normal Saline 0.9%) 1,000 mls @ 100 mls/hr IV .Q10H [facility] Last Admin: 01/10/17 05:38 Dose: 1,000 mls Sodium Acetate 20 meq/ Sodium Chloride 20 meq/ Potassium Chloride 10 meq/ Potassium Phosphate 15 mmol/ Calcium Chloride 5 meq/ Magnesium Sulfate 5 meq/ Multivitamins 10 ml/ Chromium/Copper/Manganese/Seleni/Zn 5 ml/Dextrose/Water/ Amino Acids/Sterile Water 1,544.908 mls @ 125 mls/hr IV 1900 [facility] Iron/Minerals/Multivitamins (Theragran M) 1 tab PO DAILY [facility] Last Admin: 01/10/17 08:47 Dose: 1 tab Morphine Sulfate (Morphine Sulfate Ir) 1.2 mg PO QID [facility] Last Admin: 01/10/17 08:45 Dose: 1.2 mg Stop Tpn At 0700 0 each FS 0700 [facility] Last Admin: 01/10/17 07:27 Dose: 1 each Olanzapine (Zyprexa) 7.5 mg PO DAILY [facility] Last Admin: 01/10/17 08:46 Dose: 7.5 mg Pantoprazole Sodium (Protonix) 40 mg PO DAILY [facility] Last Admin: 01/10/17 08:45 Dose: 40 mg Teduglutide [Gattex] (0.3742 Ml) 0 each SC DAILY [facility] Last Admin: 01/10/17 09:01 Dose: 0.3742 each Sodium Chloride (Flush - Normal Saline) 10 ml IVF Q12HR [facility] Last Admin: 01/10/17 08:48 Dose: 10 ml Sodium Chloride (Flush - Normal Saline) 10 ml IVF PRN PRN PRN Reason: Saline Flush
--- NOTE | 2017-01-10 16:06 | PRG ---
DATE OF SERVICE: 01/10/2017 SUBJECTIVE: Mr. Flores is without complaints today. He is in good spirits. OBJECTIVE: VITAL SIGNS: Temperature 97.5, pulse 55, blood pressure 154/74. Nurse reported some clear liquid s tool in his ostomy bag. ABDOMEN: Soft and nontender. LABORATORY DATA: Today, sodium 139, potassium 4.3, BUN and creatinine are 13 and 1.35, alkaline grzegorz sphatase is 532, albumin 3.2, protein 6.9. Blood cultures showing Staph, two different bottles from the and the . ASSESSMENT: 1. Short gut syndrome, on Gattex, tincture of opium, low residue diet. 2. Coagulase-negative Staphylococcus, two different isolates in the blood. Dr. Negrete feels this is probably a contamination of the sample rather than contamination of the Urbano catheter with negat matthew cultures of the Urbano catheter and hold off on antibiotics for now. 3. Elevated alkaline phosphatase. This was felt to be related to some fatty liver from short gut s yndrome. We have made some changes to total parenteral nutrition and decrease his caloric intake fr om carbohydrates. We will continue therapy, otherwise, as previously ordered.
[2017-01-10] MEDS ORDERED: POTASSIUM CHLORIDE IV SCH ×10 (19:00)
[2017-01-10] MEDS ORDERED: SODIUM ACETATE IV SCH ×10 (19:00)
[2017-01-10] MEDS ORDERED: SODIUM CHLORIDE IV SCH ×10 (19:00)
[2017-01-10] MEDS ORDERED: Multivitamins, Adult 10 ML, Multitrace-5 5 ML in D50W-AA 8.5% with Lytes 2,000 ML IV SCH ×3 (19:00)
[2017-01-10] MEDS ORDERED: [UNRECOGNIZED DRUG - OTHER] IV SCH ×10 (19:00)
[2017-01-10] MEDS: SODIUM CHLORIDE IV SCH ×10 (21:32)
[2017-01-10] MEDS: [UNRECOGNIZED DRUG - OTHER] IV SCH ×10 (21:32)
[2017-01-10] MEDS: POTASSIUM CHLORIDE IV SCH ×10 (21:32)
[2017-01-10] MEDS: SODIUM ACETATE IV SCH ×10 (21:32)
[2017-01-11] MEDS: Sodium Chloride 0.9% 1,000 ML IV SCH ×2 (06:30→09:10)
[2017-01-11 06:32] LABS: ALT (SGPT) 33 U/L (8-55); AST (SGOT) 28 U/L (5-34); Alkaline Phosphatase 532 U/L (40-150); Anion Gap 11 mmol/L (10-20); BUN (Urea Nitrogen) 11 mg/dL (8.4-25.7); Bilirubin, Total 0.7 mg/dL (0.2-1.2); Calc. Creatinine Clearance 72 mL/min (70-130); Calcium 9.3 mg/dL (7.8-10.44); Carbon Dioxide 21 mmol/L (22-29); Chloride 106 mmol/L (98-107); Estimated GFR-MDRD 65; Globulin 3.8 g/dL (2.4-3.5); Magnesium 1.8 mg/dL (1.6-2.6); Phosphorus 3.9 mg/dL (2.3-4.7); Protein, Total 6.9 g/dL (6.0-8.3)
[2017-01-11] MEDS: [UNRECOGNIZED DRUG - REMARK] FS SCH (06:47)
[2017-01-11] MEDS: Heparin 5,000 UNITS/ML VIAL SC SCH ×3 (09:11→20:41)
[2017-01-11] MEDS: Cholestyramine/Aspartame 4 gm Packet PO SCH ×2 (09:12→17:34)
[2017-01-11] MEDS: Pancrelipase DR 12000 1 CAP PO SCH ×3 (09:14→17:33)
[2017-01-11] MEDS: OLANZapine 5 MG TAB PO SCH (09:14)
[2017-01-11] MEDS: Multivitamin W/ Minerals 1 TAB PO SCH (09:17)
[2017-01-11] MEDS: [UNRECOGNIZED DRUG - OTHER] SC SCH (09:19)
[2017-01-11] MEDS: Lactinex Tablet PO SCH ×2 (09:28→20:40)
[2017-01-11] MEDS: Morphine IR 10 MG/5 ML UDCUP PO SCH ×4 (10:01→21:28)
--- NOTE | 2017-01-11 10:57 | PDOC.PN ---
- Subjective Encounter Start Date: 01/11/17 Encounter Start Time: 08:30 Subjective: no fever or sob or abd pain -: tolerating oral diet - Objective MAR Reviewed: Yes Vital Signs & Weight: Vital Signs (12 hours) Temp Pulse Resp BP Pulse Ox 01/11/17 08:00 98.2 F 58 L 20 129/74 95 Weight Admit Weight 194 lb 1 oz Weight 191 lb 3.2 oz I&O: 01/10/17 01/11/17 01/12/17 06:59 06:59 06:59 Intake Total 8130 2360 240 Output Total 3200 4290 625 Balance 4930 -1930 -385 Result Diagrams: 01/08/17 05:26 01/11/17 05:41 Phys Exam - Physical Examination HEENT: PERRLA, sclera anicteric Neck: no JVD, supple Respiratory: no wheezing, no rales Cardiovascular: RRR, no significant murmur Gastrointestinal: soft, non-tender, no distention, positive bowel sounds ileostomy has liq stool Musculoskeletal: no edema, pulses present Neurological: non-focal, moves all 4 limbs Dx/Plan (1) Bacteremia Code(s): R78.81 - BACTEREMIA Status: Acute Comment: staph species growing in cultures from Urbano cath 05/01 (2) Sepsis Code(s): A41.9 - SEPSIS, UNSPECIFIED ORGANISM Status: Acute Comment: staph bacteremia (3) HTN (hypertension) Code(s): I10 - ESSENTIAL (PRIMARY) HYPERTENSION Status: Chronic Qualifiers: Hypertension type: essential hypertension Qualified Code(s): I10 - Essential (primary) hypertension (4) Anemia, normocytic normochromic Code(s): D64.9 - ANEMIA, UNSPECIFIED Status: Chronic (5) CKD (chronic kidney disease) stage 3, GFR 30-59 ml/min Code(s): N18.3 - CHRONIC KIDNEY DISEASE, STAGE 3 (MODERATE) Status: Chronic (6) FTT (failure to thrive) in adult Status: Chronic (7) HTN (hypertension) Code(s): I10 - ESSENTIAL (PRIMARY) HYPERTENSION Status: Chronic Qualifiers: Hypertension type: essential hypertension (8) Mental retardation Code(s): F79 - UNSPECIFIED INTELLECTUAL DISABILITIES Status: Chronic (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 Review of Systems - Medications/Allergies Allergies/Adverse Reactions: Allergies Allergy/AdvReac Type Severity Reaction Status Date / Time ceftriaxone sodium Allergy Verified 08/01/16 11:55 [From Rocephin] vancomycin Allergy Verified 11/11/16 11:59 Medications: Current Medications Acetaminophen (Tylenol) 650 mg PO Q4H PRN PRN Reason: Headache/Fever or Pain Acidophilus (Floranex) 1 tab PO BID [facility] Last Admin: 01/11/17 09:28 Dose: 1 tab Lipase/Protease/Amylase (Sarthak Quiroga [id number]) 1 cap PO TID-[facility] Last Admin: 01/11/17 09:14 Dose: 1 cap Cholestyramine Resin (Questran Light) 8 gm PO BID-[facility] Last Admin: 01/11/17 09:12 Dose: 8 gm Heparin Sodium (Porcine) (Heparin) 5,000 units SC TID [facility] Last Admin: 01/11/17 09:11 Dose: 5,000 units Sodium Chloride (Normal Saline 0.9%) 1,000 mls @ 100 mls/hr IV .Q10H [facility] Last Admin: 01/11/17 09:10 Dose: 1,000 mls Sodium Acetate 20 meq/ Sodium Chloride 15 meq/ Potassium Chloride 10 meq/ Potassium Phosphate 15 mmol/ Calcium Chloride 5 meq/ Magnesium Sulfate 5 meq/ Multivitamins 10 ml/ Chromium/Copper/Manganese/Seleni/Zn 5 ml/Dextrose/Water/ Amino Acids/Sterile Water 1,543.658 mls @ 125 mls/hr IV 1900 [facility] Last Admin: 01/10/17 21:32 Dose: 1,543.658 mls Iron/Minerals/Multivitamins (Theragran M) 1 tab PO DAILY [facility] Last Admin: 01/11/17 09:17 Dose: 1 tab Morphine Sulfate (Morphine Sulfate Ir) 1.2 mg PO QID [facility] Last Admin: 01/11/17 10:01 Dose: 1.2 mg Stop Tpn At 0700 0 each FS 0700 [facility] Last Admin: 01/11/17 06:47 Dose: 1,200 each Olanzapine (Zyprexa) 7.5 mg PO DAILY [facility] Last Admin: 01/11/17 09:14 Dose: 7.5 mg Pantoprazole Sodium (Protonix) 40 mg PO DAILY [facility] Last Admin: 01/11/17 09:18 Dose: 40 mg Teduglutide [Gattex] (0.3742 Ml) 0 each SC DAILY [facility] Last Admin: 01/11/17 09:19 Dose: 1 each Sodium Chloride (Flush - Normal Saline) 10 ml IVF Q12HR [facility] Last Admin: 01/11/17 09:18 Dose: Not Given Sodium Chloride (Flush - Normal Saline) 10 ml IVF PRN PRN PRN Reason: Saline Flush
--- NOTE | 2017-01-11 16:49 | PRG ---
DATE OF SERVICE: 01/11/2017 SUBJECTIVE: Mr. Flores is feeling well. No headaches, no chest pain, no abdominal pain, no vomit ing. OBJECTIVE: VITAL SIGNS: He has been afebrile. LUNGS: Clear. HEART: S1, S2, regular rate. Urbano site without inflammatory changes. ABDOMEN: Soft. NEUROLOGIC: Unchanged. LABORATORY DATA: White cell count 8.3, hemoglobin 10.1 and platelets 224. Creatinine 1.36. Two se ts of blood cultures from yesterday from report both with coagulase negative Staph, yet to be fully identified. The preliminary identification from the panel is not consistent with epidermidis or . 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 It looks like the line is colonized by coagulase negative Staph, we will go ahead and start vancomycin lock solution for 2 weeks to see if we can era dicate colonization and help preserve the Urbano catheter.
--- NOTE | 2017-01-11 17:26 | PRG ---
DATE OF SERVICE: 01/11/2017 SUBJECTIVE: Mr. Flores is feeling well with no complaints. Dr. Negrete did see him and felt that t he cultures that were positive were probably a contaminant, and repeat cultures are pending. MEDICATIONS: He continues on cholestyramine, lactobacillus, deodorized tincture of opium, multivita min, normal saline at 100, lipase, Protonix, Gattex subcu daily and TPN. PHYSICAL EXAMINATION: GENERAL: He is resting comfortably in bed. VITAL SIGNS: Temperature is 98, pulse 58, blood pressure 129/74. LABORATORY DATA: Blood cultures from yesterday shows coagulase-negative Staph from his subclavian v ein. ASSESSMENT AND PLAN: 1. Admission with fever and concern for sepsis with Staph saprophyticus in blood culture bottles on the , now with 2 blood cultures from his line showing coagulase-negative Staphylococcus. We wi ll defer to Infectious Disease, but his line may need to be removed. 2. Short gut syndrome with multiple admissions for dehydration and renal failure in the past, which have really resolved since he was started on TPN and Gattex. The goal is to get him off the TPN an d keep him on Gattex. The TPN was really started mainly for fluid management as he was losing large amount of fluids, a lot of it related to diet and things he was eating. It would have been difficu lt to control in the home environment. At this point in time, we will wait the plans for Infectious Disease regarding the cultures. No changes to be made in TPN at this point in time.
[2017-01-11] MEDS: SODIUM CHLORIDE IV SCH ×10 (20:39)
[2017-01-11] MEDS: POTASSIUM CHLORIDE IV SCH ×10 (20:39)
[2017-01-11] MEDS: [UNRECOGNIZED DRUG - OTHER] IV SCH ×10 (20:39)
[2017-01-11] MEDS: SODIUM ACETATE IV SCH ×10 (20:39)
[2017-01-12] MEDS: Sodium Chloride 0.9% 1,000 ML IV SCH ×3 (02:23→20:55)
[2017-01-12 05:53] LABS: #Eosinphils 0.3 thou/uL (0.0-0.7); #Lymphocytes 2.4 thou/uL (1.20-3.40); #Monocytes 0.6 thou/uL (0.11-0.59); #Neutrophils 7.1 thou/uL (1.40-6.50); %Basophils 0.4 % (0.0-1.0); %Eosinophils 3.1 % (0.0-10.0); %Lymphocytes 22.9 % (21.0-51.0); %Monocytes 6.1 % (0.0-10.0); Mean Platelet Volume 8.5 fL (7.4-10.4); Red Blood Cell (RBC) Count 3.58 mill/uL (4.70-6.10); White Blood Cell (WBC) Count 10.5 thou/uL (4.8-10.8)
[2017-01-12 06:16] LABS: ALT (SGPT) 33 U/L (8-55); AST (SGOT) 27 U/L (5-34); Alkaline Phosphatase 517 U/L (40-150); Anion Gap 12 mmol/L (10-20); BUN (Urea Nitrogen) 10 mg/dL (8.4-25.7); Bilirubin, Total 0.6 mg/dL (0.2-1.2); Calc. Creatinine Clearance 69 mL/min (70-130); Calcium 9.5 mg/dL (7.8-10.44); Carbon Dioxide 22 mmol/L (22-29); Chloride 105 mmol/L (98-107); Estimated GFR-MDRD 62; Globulin 3.7 g/dL (2.4-3.5); Magnesium 1.6 mg/dL (1.6-2.6); Phosphorus 4.2 mg/dL (2.3-4.7); Protein, Total 6.8 g/dL (6.0-8.3)
[2017-01-12] MEDS: Multivitamin W/ Minerals 1 TAB PO SCH (08:25)
[2017-01-12] MEDS: Pancrelipase DR 12000 1 CAP PO SCH (08:25)
[2017-01-12] MEDS: Lactinex Tablet PO SCH ×2 (08:25→20:58)
[2017-01-12] MEDS: OLANZapine 5 MG TAB PO SCH (08:26)
[2017-01-12] MEDS: Cholestyramine/Aspartame 4 gm Packet PO SCH ×2 (08:26→16:40)
[2017-01-12] MEDS: Heparin 5,000 UNITS/ML VIAL SC SCH ×2 (08:27→20:58)
[2017-01-12] MEDS: [UNRECOGNIZED DRUG - REMARK] FS SCH (08:28)
[2017-01-12] MEDS: [UNRECOGNIZED DRUG - OTHER] SC SCH (08:32)
[2017-01-12] MEDS: Morphine IR 10 MG/5 ML UDCUP PO SCH (09:23)
--- NOTE | 2017-01-12 11:33 | PDOC.PN ---
- Subjective Encounter Start Date: 01/12/17 Encounter Start Time: 07:20 -: old records requested/rev Patient seen and examined. No new complaints. No overnight events - Objective MAR Reviewed: Yes Vital Signs & Weight: Vital Signs (12 hours) Temp Pulse Resp BP Pulse Ox 01/12/17 08:00 98.2 F 72 18 100 01/12/17 07:38 98.2 F 72 18 131/81 100 Weight Admit Weight 194 lb 1 oz Weight 191 lb 3.2 oz I&O: 01/11/17 01/12/17 01/13/17 06:59 06:59 06:59 Intake Total 2360 3420 240 Output Total 4290 3375 Balance -1930 45 240 Result Diagrams: 01/12/17 04:22 01/12/17 04:22 Phys Exam - Physical Examination Constitutional: NAD HEENT: PERRLA, moist MMs, sclera anicteric Neck: no JVD, supple Respiratory: no wheezing, no rales, no rhonchi Cardiovascular: RRR, no significant murmur, no rub Gastrointestinal: soft, non-tender, no distention, positive bowel sounds iliostomy+ Musculoskeletal: no edema, pulses present Neurological: non-focal, normal sensation, moves all 4 limbs Psychiatric: normal affect, A&O x 3 Skin: no rash, normal turgor Dx/Plan (1) Acute worsening of stage 3 chronic kidney disease Code(s): N18.3 - CHRONIC KIDNEY DISEASE, STAGE 3 (MODERATE) Status: Acute Comment: (2) Bacteremia due to coagulase-negative Staphylococcus Code(s): R78.81 - BACTEREMIA Status: Acute (3) Sepsis associated with vascular access catheter Code(s): T82.7XXA - INFECT/INFLM REACT D/T OTH CARDI/VASC DEV/IMPLNT/GRFT, INIT ; A41.9 - SEPSIS, UNSPECIFIED ORGANISM Status: Acute (4) Anemia, normocytic normochromic Code(s): D64.9 - ANEMIA, UNSPECIFIED Status: Chronic (5) CKD (chronic kidney disease) stage 3, GFR 30-59 ml/min Code(s): N18.3 - CHRONIC KIDNEY DISEASE, STAGE 3 (MODERATE) Status: Chronic (6) FTT (failure to thrive) in adult Status: Chronic (7) HTN (hypertension) Code(s): I10 - ESSENTIAL (PRIMARY) HYPERTENSION Status: Chronic Qualifiers: Hypertension type: essential hypertension Qualified Code(s): I10 - Essential (primary) hypertension (8) High output ileostomy Code(s): R19.8 - OTH SYMPTOMS AND SIGNS INVOLVING THE DGSTV SYS AND ABDOMEN; Z93.2 - ILEOSTOMY STATUS Status: Chronic (9) Malnutrition of moderate degree Code(s): E44.0 - MODERATE PROTEIN-CALORIE MALNUTRITION Status: Chronic (10) Mental retardation Code(s): F79 - UNSPECIFIED INTELLECTUAL DISABILITIES Status: Chronic (11) On total parenteral nutrition (TPN) Code(s): Z78.9 - OTHER SPECIFIED HEALTH STATUS Status: Chronic (12) Short gut syndrome Code(s): K91.2 - POSTSURGICAL MALABSORPTION, NOT ELSEWHERE CLASSIFIED Status: Chronic Comment: h/o total colectomy with ileostomy (13) Vitamin D deficiency Code(s): E55.9 - VITAMIN D DEFICIENCY, UNSPECIFIED Status: Chronic - Plan cont current plan of care, 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 Review of Systems - Review of Systems ENT: negative: Ear Pain, Ear Discharge, Nose Pain, Nose Discharge, Nose Congestion, Mouth Pain, Mouth Swelling, Throat Pain, Throat Swelling, Other Respiratory: negative: Cough, Dry, Shortness of Breath, Hemoptysis, SOB with Excertion, Pleuritic Pain, Sputum, Wheezing Cardiovascular: negative: Chest Pain, Palpitations, Orthopnea, Paroxysmal Noc. Dyspnea, Edema, Light Headedness, Other Gastrointestinal: negative: Nausea, Vomiting, Abdominal Pain, Diarrhea, Constipation, Melena, Hematochezia, Other Genitourinary: negative: Dysuria, Frequency, Incontinence, Hematuria, Retention , Other Musculoskeletal: negative: Neck Pain, Shoulder Pain, Arm Pain, Back Pain, Hand Pain, Leg Pain, Foot Pain, Other - Medications/Allergies Allergies/Adverse Reactions: Allergies Allergy/AdvReac Type Severity Reaction Status Date / Time ceftriaxone sodium Allergy Verified 08/01/16 11:55 [From Rocephin] vancomycin Allergy Verified 08/15/17 11:59 Medications: Current Medications Acetaminophen (Tylenol) 650 mg PO Q4H PRN PRN Reason: Headache/Fever or Pain Acidophilus (Floranex) 1 tab PO BID [facility] Last Admin: 01/12/17 08:25 Dose: 1 tab Cholestyramine Resin (Questran Light) 8 gm PO BID-[facility] Last Admin: 01/12/17 08:26 Dose: 8 gm Heparin Sodium (Porcine) (Heparin) 5,000 units SC BID [facility] Last Admin: 01/12/17 08:27 Dose: 5,000 units Sodium Chloride (Normal Saline 0.9%) 1,000 mls @ 100 mls/hr IV .Q10H [facility] Last Admin: 01/12/17 09:24 Dose: Not Given Sodium Acetate 20 meq/ Sodium Chloride 15 meq/ Potassium Chloride 10 meq/ Potassium Phosphate 15 mmol/ Calcium Chloride 5 meq/ Magnesium Sulfate 5 meq/ Multivitamins 10 ml/ Chromium/Copper/Manganese/Seleni/Zn 5 ml/Dextrose/Water/ Amino Acids/Sterile Water 1,543.658 mls @ 125 mls/hr IV 1900 [facility] Last Admin: 01/11/17 20:39 Dose: 1,543.658 mls Vancomycin HCl 50 mg/ Sodium (Chloride 10 ml/ Syringe) 11 mls @ 0 mls/hr IVPB PRN PRN PRN Reason: LOCK FLUSH WHEN NOT IN USE Iron/Minerals/Multivitamins (Theragran M) 1 tab PO DAILY [facility] Last Admin: 01/12/17 08:25 Dose: 1 tab Morphine Sulfate (Morphine Sulfate Ir) 1.2 mg PO QID [facility] Stop: 01/12/17 12:00 Last Admin: 01/12/17 09:23 Dose: 1.2 mg Morphine Sulfate (Roxanol Solution) 1.2 mg PO QID [facility] Stop Tpn At 0700 0 each FS 0700 [facility] Last Admin: 01/12/17 08:28 Dose: 1 each Olanzapine (Zyprexa) 7.5 mg PO DAILY [facility] Last Admin: 01/12/17 08:26 Dose: 7.5 mg Pantoprazole Sodium (Protonix) 40 mg PO DAILY [facility] Last Admin: 01/12/17 08:25 Dose: 40 mg Teduglutide [Gattex] (0.3742 Ml) 0 each SC DAILY [facility] Last Admin: 10/16/17 08:32 Dose: 1 each Sodium Chloride (Flush - Normal Saline) 10 ml IVF Q12HR [facility] Last Admin: 01/12/17 08:32 Dose: 10 ml Sodium Chloride (Flush - Normal Saline) 10 ml IVF PRN PRN PRN Reason: Saline Flush
--- NOTE | 2017-01-12 11:59 | PRG ---
DATE OF SERVICE: 01/12/2017 Mr. Flores is without complaints, he is sitting in bed. PHYSICAL EXAMINATION: VITAL SIGNS: Temperature 98, pulse 82, blood pressure 131/81. ABDOMEN: Soft, nontender. HEENT: Mouth is dry. LABORATORY STUDIES: White count 10.5, hemoglobin 9.9, platelet count 319. BUN and creatinine are 1 0 and 1.42. Sodium 135, phosphorus 4.2, magnesium 1.6, alkaline phosphatase 517. Microbiology; cul tures through subclavian port were positive for Staph saprophyticus. RECOMMENDATIONS: 1. Continue present TPN, ID is arranging outpatient antibiotics to help see if we can save the port . 2. Continue antidiarrheal regimen with carbohydrate bounced low residue diet, tincture of opium, Ga ttex injection daily.
[2017-01-12] MEDS: Morphine 10 MG/0.5 ML ORAL SYRINGE PO SCH ×3 (16:31→20:59)
--- NOTE | 2017-01-12 17:08 | PRG ---
DATE OF SERVICE: 01/12/2017 SUBJECTIVE: Ms. Flores is stable. Skin is unchanged. OBJECTIVE: VITAL SIGNS: Normal. He is afebrile. LUNGS: Clear. HEART: S1, S2, regular rate. ABDOMEN: Soft. LABORATORY DATA: White cell count 10.5, hemoglobin 9.9, platelets 219,000 and repeat blood cultures with Staph saprophyticus. Now he has 4/4 positive Staph saprophyticus, probably the culprit here leading to the patient's symp toms most likely due to colonization of the Urbano catheter. At this time, we will attempt decolon ization with vancomycin lock solution for 2 weeks.
[2017-01-12] MEDS: [UNRECOGNIZED DRUG - OTHER] IV SCH ×10 (20:53)
[2017-01-12] MEDS: POTASSIUM CHLORIDE IV SCH ×10 (20:53)
[2017-01-12] MEDS: SODIUM ACETATE IV SCH ×10 (20:53)
[2017-01-12] MEDS: SODIUM CHLORIDE IV SCH ×10 (20:53)
[2017-01-13] MEDS: Sodium Chloride 0.9% 1,000 ML IV SCH ×2 (03:33→08:33)
[2017-01-13 06:54] LABS: Chloride 102 mmol/L (98-107)
[2017-01-13 06:55] LABS: Calcium 9.6 mg/dL (7.8-10.44); Magnesium 1.6 mg/dL (1.6-2.6)
[2017-01-13 06:56] LABS: Globulin 3.7 g/dL (2.4-3.5); Protein, Total 6.9 g/dL (6.0-8.3)
[2017-01-13 06:57] LABS: Anion Gap 11 mmol/L (10-20); Carbon Dioxide 26 mmol/L (22-29)
[2017-01-13 06:58] LABS: Bilirubin, Total 0.9 mg/dL (0.2-1.2)
[2017-01-13 06:59] LABS: Alkaline Phosphatase 510 U/L (40-150); Calc. Creatinine Clearance 64 mL/min (70-130); Estimated GFR-MDRD 57
[2017-01-13 07:00] LABS: BUN (Urea Nitrogen) 8 mg/dL (8.4-25.7)
[2017-01-13 07:01] LABS: AST (SGOT) 29 U/L (5-34)
[2017-01-13 07:02] LABS: ALT (SGPT) 34 U/L (8-55)
[2017-01-13] MEDS: Lactinex Tablet PO SCH ×2 (08:16→20:45)
[2017-01-13] MEDS: Multivitamin W/ Minerals 1 TAB PO SCH (08:16)
[2017-01-13] MEDS: Morphine 10 MG/0.5 ML ORAL SYRINGE PO SCH ×4 (08:17→20:45)
[2017-01-13] MEDS: Cholestyramine/Aspartame 4 gm Packet PO SCH ×2 (08:26→17:39)
[2017-01-13] MEDS: Heparin 5,000 UNITS/ML VIAL SC SCH ×2 (08:26→20:43)
[2017-01-13] MEDS: OLANZapine 5 MG TAB PO SCH (08:27)
[2017-01-13] MEDS: [UNRECOGNIZED DRUG - OTHER] SC SCH (08:37)
[2017-01-13] MEDS: Vancomycin HCl 50 MG, Sodium Chloride 0.9% 10 ML in Syringe 1 ML IVPB PRN (08:44)
[2017-01-13] MEDS: [UNRECOGNIZED DRUG - REMARK] FS SCH (08:52)
[2017-01-13 11:39] VITALS: BMI 24.5
--- NOTE | 2017-01-13 12:14 | PDOC.PN ---
- Subjective Encounter Start Date: 01/13/17 Encounter Start Time: 08:10 Patient seen and examined. No new complaints. No overnight events - Objective MAR Reviewed: Yes Vital Signs & Weight: Vital Signs (12 hours) Temp Pulse Resp BP Pulse Ox 01/13/17 08:00 98.7 F 63 18 127/73 98 01/13/17 00:23 98.6 F 55 L 16 121/58 L 96 Weight Admit Weight 194 lb 1 oz Weight 191 lb 3.2 oz I&O: 01/12/17 01/13/17 01/14/17 06:59 06:59 06:59 Intake Total 3420 2770 416 Output Total 3371 3675 800 Balance 61 -887 -513 Result Diagrams: 01/12/17 04:22 01/13/17 06:26 Phys Exam - Physical Examination Constitutional: NAD HEENT: PERRLA, moist MMs, sclera anicteric Neck: no JVD, supple Respiratory: no wheezing, no rales, no rhonchi hickmen catheter+ Cardiovascular: RRR, no significant murmur, no rub Gastrointestinal: soft, non-tender, no distention, positive bowel sounds iliostomy+ Musculoskeletal: no edema, pulses present Neurological: non-focal, normal sensation, moves all 4 limbs Psychiatric: normal affect, A&O x 3 Skin: no rash, normal turgor Dx/Plan (1) Acute worsening of stage 3 chronic kidney disease Code(s): N18.3 - CHRONIC KIDNEY DISEASE, STAGE 3 (MODERATE) Status: Acute Comment: (2) Bacteremia due to coagulase-negative Staphylococcus Code(s): R78.81 - BACTEREMIA Status: Acute (3) Sepsis associated with vascular access catheter Code(s): T82.7XXA - INFECT/INFLM REACT D/T OTH CARDI/VASC DEV/IMPLNT/GRFT, INIT ; A41.9 - SEPSIS, UNSPECIFIED ORGANISM Status: Acute (4) Anemia, normocytic normochromic Code(s): D64.9 - ANEMIA, UNSPECIFIED Status: Chronic (5) CKD (chronic kidney disease) stage 3, GFR 30-59 ml/min Code(s): N18.3 - CHRONIC KIDNEY DISEASE, STAGE 3 (MODERATE) Status: Chronic (6) FTT (failure to thrive) in adult Status: Chronic (7) HTN (hypertension) Code(s): I10 - ESSENTIAL (PRIMARY) HYPERTENSION Status: Chronic Qualifiers: Hypertension type: essential hypertension Qualified Code(s): I10 - Essential (primary) hypertension (8) High output ileostomy Code(s): R19.8 - OTH SYMPTOMS AND SIGNS INVOLVING THE DGSTV SYS AND ABDOMEN; Z93.2 - ILEOSTOMY STATUS Status: Chronic (9) Malnutrition of moderate degree Code(s): E44.0 - MODERATE PROTEIN-CALORIE MALNUTRITION Status: Chronic (10) Mental retardation Code(s): F79 - UNSPECIFIED INTELLECTUAL DISABILITIES Status: Chronic (11) On total parenteral nutrition (TPN) Code(s): Z78.9 - OTHER SPECIFIED HEALTH STATUS Status: Chronic (12) Short gut syndrome Code(s): K91.2 - POSTSURGICAL MALABSORPTION, NOT ELSEWHERE CLASSIFIED Status: Chronic Comment: h/o total colectomy with ileostomy (13) Vitamin D deficiency Code(s): E55.9 - VITAMIN D DEFICIENCY, UNSPECIFIED Status: Chronic - Plan cont current plan of care, 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 Review of Systems - Review of Systems ENT: negative: Ear Pain, Ear Discharge, Nose Pain, Nose Discharge, Nose Congestion, Mouth Pain, Mouth Swelling, Throat Pain, Throat Swelling, Other Respiratory: negative: Cough, Dry, Shortness of Breath, Hemoptysis, SOB with Excertion, Pleuritic Pain, Sputum, Wheezing Cardiovascular: negative: Chest Pain, Palpitations, Orthopnea, Paroxysmal Noc. Dyspnea, Edema, Light Headedness, Other Gastrointestinal: negative: Nausea, Vomiting, Abdominal Pain, Diarrhea, Constipation, Melena, Hematochezia, Other Genitourinary: negative: Dysuria, Frequency, Incontinence, Hematuria, Retention , Other Musculoskeletal: negative: Neck Pain, Shoulder Pain, Arm Pain, Back Pain, Hand Pain, Leg Pain, Foot Pain, Other - Medications/Allergies Allergies/Adverse Reactions: Allergies Allergy/AdvReac Type Severity Reaction Status Date / Time ceftriaxone sodium Allergy Verified 08/01/16 11:55 [From Rocephin] vancomycin Allergy Verified 11/11/16 11:59 Medications: Current Medications Acetaminophen (Tylenol) 650 mg PO Q4H PRN PRN Reason: Headache/Fever or Pain Acidophilus (Floranex) 1 tab PO BID [facility] Last Admin: 01/13/17 08:16 Dose: 1 tab Cholestyramine Resin (Questran Light) 8 gm PO BID[facility] [place] Last Admin: 01/13/17 08:26 Dose: 8 gm Heparin Sodium (Porcine) (Heparin) 5,000 units SC BID [facility] Last Admin: 01/13/17 08:26 Dose: 5,000 units Sodium Chloride (Normal Saline 0.9%) 1,000 mls @ 100 mls/hr IV .Q10H [facility] Last Admin: 01/13/17 08:33 Dose: 1,000 mls Vancomycin HCl 50 mg/ Sodium (Chloride 10 ml/ Syringe) 11 mls @ 0 mls/hr IVPB PRN PRN PRN Reason: LOCK FLUSH WHEN NOT IN USE Last Admin: 01/13/17 08:44 Dose: 11 mls Sodium Acetate 20 meq/ Sodium Chloride 15 meq/ Potassium Chloride 15 meq/ Potassium Acetate 10 meq/ Calcium Gluconate 5 meq/ Magnesium Sulfate 5 meq/ Multivitamins 10 ml/ Chromium/Copper/Manganese/Seleni/Zn 5 ml/Dextrose/Water/ Amino Acids/Sterile Water 1,553.3511 mls @ 129.446 mls/hr IV 1900 [facility] Iron/Minerals/Multivitamins (Theragran M) 1 tab PO DAILY [facility] Last Admin: 01/13/17 08:16 Dose: 1 tab Morphine Sulfate (Roxanol Solution) 1.2 mg PO QID [facility] Last Admin: 01/13/17 08:17 Dose: 1.2 mg Stop Tpn At 0700 0 each FS 0700 [facility] Last Admin: 01/13/17 08:52 Dose: 1 each Olanzapine (Zyprexa) 7.5 mg PO DAILY [facility] Last Admin: 01/13/17 08:27 Dose: 7.5 mg Pantoprazole Sodium (Protonix) 40 mg PO DAILY [facility] Last Admin: 01/13/17 08:16 Dose: 40 mg Teduglutide [Gattex] (0.3742 Ml) 0 each SC DAILY [facility] Last Admin: 01/13/17 08:37 Dose: 1 each Sodium Chloride (Flush - Normal Saline) 10 ml IVF Q12HR [facility] Last Admin: 01/13/17 08:52 Dose: 10 ml Sodium Chloride (Flush - Normal Saline) 10 ml IVF PRN PRN PRN Reason: Saline Flush
[2017-01-13] MEDS ORDERED: LYTES IV SCH (19:00)
[2017-01-13] MEDS ORDERED: MULTIVITAMINS IV SCH (19:00)
[2017-01-13] MEDS ORDERED: [UNRECOGNIZED DRUG - OTHER] IV SCH (19:00)
[2017-01-13] MEDS ORDERED: MULTITRACE IV SCH (19:00)
[2017-01-13] MEDS: SODIUM CHLORIDE IV SCH ×10 (21:53)
[2017-01-13] MEDS: SODIUM ACETATE IV SCH ×10 (21:53)
[2017-01-13] MEDS: [UNRECOGNIZED DRUG - OTHER] IV SCH ×10 (21:53)
[2017-01-13] MEDS: POTASSIUM CHLORIDE IV SCH ×10 (21:53)
[2017-01-14] MEDS: Sodium Chloride 0.9% 1,000 ML IV SCH ×3 (01:26→21:53)
--- NOTE | 2017-01-14 01:36 | PRG ---
DATE OF SERVICE: 01/13/2017 SUBJECTIVE: Mr. Flores is having less diarrhea now that he is not being given juice anymore. He wants to go home. OBJECTIVE: VITAL SIGNS: Temperature is 97, pulse 68, blood pressure 131/70. The patient is with no dist ress. LABORATORY DATA: Alkaline phosphatase is 510, phosphorus is 5, magnesium is 1.6. BUN and creatinin e are 8 and 1.52. ASSESSMENT AND PLAN: 1. TPN. The patient is doing well. Will decrease phosphorus. 2. Line infection. Plan is to go home with home antibiotics. We will preserve the Urbano cathete r. 3. Recurrent diarrhea secondary to short gut syndrome, improved. Agree with plan to try to treat t he Urbano infection to try to prevent it from having to be removed surgically.
[2017-01-14 05:36] LABS: ALT (SGPT) 47 U/L (8-55); AST (SGOT) 35 U/L (5-34); Alkaline Phosphatase 492 U/L (40-150); Anion Gap 9 mmol/L (10-20); BUN (Urea Nitrogen) 10 mg/dL (8.4-25.7); Bilirubin, Total 0.8 mg/dL (0.2-1.2); Calc. Creatinine Clearance 66 mL/min (70-130); Calcium 9.7 mg/dL (7.8-10.44); Carbon Dioxide 26 mmol/L (22-29); Chloride 104 mmol/L (98-107); Estimated GFR-MDRD 59; Globulin 3.7 g/dL (2.4-3.5); Magnesium 1.6 mg/dL (1.6-2.6)
[2017-01-14] MEDS: Multivitamin W/ Minerals 1 TAB PO SCH (08:38)
[2017-01-14] MEDS: Lactinex Tablet PO SCH ×2 (08:38→21:48)
[2017-01-14] MEDS: Heparin 5,000 UNITS/ML VIAL SC SCH ×2 (08:40→21:50)
[2017-01-14] MEDS: Cholestyramine/Aspartame 4 gm Packet PO SCH ×2 (08:40→17:21)
[2017-01-14] MEDS: Morphine 10 MG/0.5 ML ORAL SYRINGE PO SCH ×4 (08:41→21:49)
[2017-01-14] MEDS: OLANZapine 5 MG TAB PO SCH (08:43)
[2017-01-14] MEDS: Vancomycin HCl 50 MG, Sodium Chloride 0.9% 10 ML in Syringe 1 ML IVPB PRN (08:49)
[2017-01-14] MEDS: [UNRECOGNIZED DRUG - REMARK] FS SCH (08:51)
[2017-01-14] MEDS: [UNRECOGNIZED DRUG - OTHER] SC SCH (08:54)
--- NOTE | 2017-01-14 10:23 | PDOC.PN ---
- Subjective Encounter Start Date: 01/14/17 Encounter Start Time: 08:30 Patient seen and examined. No new complaints. No overnight events - Objective MAR Reviewed: Yes Vital Signs & Weight: Vital Signs (12 hours) Temp Pulse Resp BP Pulse Ox 01/14/17 07:20 98 F 65 16 136/71 98 01/14/17 06:42 98.2 F 72 20 Weight Admit Weight 194 lb 1 oz Weight 191 lb 3.2 oz I&O: 01/13/17 01/14/17 01/15/17 06:59 06:59 06:59 Intake Total 2770 2166 Output Total 3675 2975 Balance -545 -768 Result Diagrams: 01/12/17 04:22 01/14/17 04:16 Phys Exam - Physical Examination Constitutional: NAD HEENT: PERRLA, moist MMs, sclera anicteric Neck: no JVD, supple Respiratory: no wheezing, no rales, no rhonchi Cardiovascular: RRR, no significant murmur, no rub Gastrointestinal: soft, non-tender, no distention, positive bowel sounds iliostomy+ Musculoskeletal: no edema, pulses present Neurological: non-focal, normal sensation, moves all 4 limbs Psychiatric: normal affect, A&O x 3 Skin: no rash, normal turgor Dx/Plan (1) Acute worsening of stage 3 chronic kidney disease Code(s): N18.3 - CHRONIC KIDNEY DISEASE, STAGE 3 (MODERATE) Status: Acute Comment: (2) Bacteremia due to coagulase-negative Staphylococcus Code(s): R78.81 - BACTEREMIA Status: Acute (3) Sepsis associated with vascular access catheter Code(s): T82.7XXA - INFECT/INFLM REACT D/T OTH CARDI/VASC DEV/IMPLNT/GRFT, INIT ; A41.9 - SEPSIS, UNSPECIFIED ORGANISM Status: Acute (4) Anemia, normocytic normochromic Code(s): D64.9 - ANEMIA, UNSPECIFIED Status: Chronic (5) CKD (chronic kidney disease) stage 3, GFR 30-59 ml/min Code(s): N18.3 - CHRONIC KIDNEY DISEASE, STAGE 3 (MODERATE) Status: Chronic (6) FTT (failure to thrive) in adult Status: Chronic (7) HTN (hypertension) Code(s): I10 - ESSENTIAL (PRIMARY) HYPERTENSION Status: Chronic Qualifiers: Hypertension type: essential hypertension Qualified Code(s): I10 - Essential (primary) hypertension (8) High output ileostomy Code(s): R19.8 - OTH SYMPTOMS AND SIGNS INVOLVING THE DGSTV SYS AND ABDOMEN; Z93.2 - ILEOSTOMY STATUS Status: Chronic (9) Malnutrition of moderate degree Code(s): E44.0 - MODERATE PROTEIN-CALORIE MALNUTRITION Status: Chronic (10) Mental retardation Code(s): F79 - UNSPECIFIED INTELLECTUAL DISABILITIES Status: Chronic (11) On total parenteral nutrition (TPN) Code(s): Z78.9 - OTHER SPECIFIED HEALTH STATUS Status: Chronic (12) Short gut syndrome Code(s): K91.2 - POSTSURGICAL MALABSORPTION, NOT ELSEWHERE CLASSIFIED Status: Chronic Comment: h/o total colectomy with ileostomy (13) Vitamin D deficiency Code(s): E55.9 - VITAMIN D DEFICIENCY, UNSPECIFIED Status: Chronic - Plan cont current 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 * because of this, he is at risk for readmission with sepsis * medication reviewed as below * symptomatic treatment * will arrange TPN, home health and vancomycin lock therapy * contineu IVF and TPN here Review of Systems - Review of Systems ENT: negative: Ear Pain, Ear Discharge, Nose Pain, Nose Discharge, Nose Congestion, Mouth Pain, Mouth Swelling, Throat Pain, Throat Swelling, Other Respiratory: negative: Cough, Dry, Shortness of Breath, Hemoptysis, SOB with Excertion, Pleuritic Pain, Sputum, Wheezing Cardiovascular: negative: Chest Pain, Palpitations, Orthopnea, Paroxysmal Noc. Dyspnea, Edema, Light Headedness, Other Gastrointestinal: negative: Nausea, Vomiting, Abdominal Pain, Diarrhea, Constipation, Melena, Hematochezia, Other Genitourinary: negative: Dysuria, Frequency, Incontinence, Hematuria, Retention , Other Musculoskeletal: negative: Neck Pain, Shoulder Pain, Arm Pain, Back Pain, Hand Pain, Leg Pain, Foot Pain, Other - Medications/Allergies Allergies/Adverse Reactions: Allergies Allergy/AdvReac Type Severity Reaction Status Date / Time ceftriaxone sodium Allergy Verified 08/01/16 11:55 [From Rocephin] vancomycin Allergy Verified 11/11/16 11:59 Medications: Current Medications Acetaminophen (Tylenol) 650 mg PO Q4H PRN PRN Reason: Headache/Fever or Pain Acidophilus (Floranex) 1 tab PO BID [facility] Last Admin: 01/14/17 08:38 Dose: 1 tab Cholestyramine Resin (Questran Light) 8 gm PO BID[facility] Last Admin: 01/14/17 08:40 Dose: 8 gm Heparin Sodium (Porcine) (Heparin) 5,000 units SC BID [facility] Last Admin: 01/14/17 08:40 Dose: 5,000 units Sodium Chloride (Normal Saline 0.9%) 1,000 mls @ 100 mls/hr IV .Q10H [facility] Last Admin: 01/14/17 01:26 Dose: 1,000 mls Vancomycin HCl 50 mg/ Sodium (Chloride 10 ml/ Syringe) 11 mls @ 0 mls/hr IVPB PRN PRN PRN Reason: LOCK FLUSH WHEN NOT IN USE Last Admin: 01/14/17 08:49 Dose: 11 mls Sodium Acetate 20 meq/ Sodium Chloride 15 meq/ Potassium Chloride 15 meq/ Potassium Acetate 10 meq/ Calcium Gluconate 5 meq/ Magnesium Sulfate 5 meq/ Multivitamins 10 ml/ Chromium/Copper/Manganese/Seleni/Zn 5 ml/Dextrose/Water/ Amino Acids/Sterile Water 1,553.3511 mls @ 129.446 mls/hr IV 1900 [facility] Last Admin: 01/13/17 21:53 Dose: 1,553.3511 mls Iron/Minerals/Multivitamins (Theragran M) 1 tab PO DAILY [facility] Last Admin: 01/14/17 08:38 Dose: 1 tab Morphine Sulfate (Roxanol Solution) 1.2 mg PO QID [facility] Last Admin: 01/14/17 08:41 Dose: 1.2 mg Stop Tpn At 0700 0 each FS 0700 [facility] Last Admin: 01/14/17 08:51 Dose: 1 each Olanzapine (Zyprexa) 7.5 mg PO DAILY [facility] Last Admin: 01/14/17 08:43 Dose: 7.5 mg Pantoprazole Sodium (Protonix) 40 mg PO DAILY [facility] Last Admin: 01/14/17 08:38 Dose: 40 mg Teduglutide [Gattex] (0.3742 Ml) 0 each SC DAILY [facility] Last Admin: 01/14/17 08:54 Dose: 0.3742 each Sodium Chloride (Flush - Normal Saline) 10 ml IVF Q12HR [facility] Last Admin: 01/14/17 08:39 Dose: 10 ml Sodium Chloride (Flush - Normal Saline) 10 ml IVF PRN PRN PRN Reason: Saline Flush
[2017-01-14] MEDS ORDERED: DAPTOmycin 500 MG in Sodium Chloride 0.9% 100 ML IVPB SCH (16:00)
[2017-01-14] MEDS: POTASSIUM CHLORIDE IV SCH ×10 (21:48)
[2017-01-14] MEDS: SODIUM ACETATE IV SCH ×10 (21:48)
[2017-01-14] MEDS: SODIUM CHLORIDE IV SCH ×10 (21:48)
[2017-01-14] MEDS: [UNRECOGNIZED DRUG - OTHER] IV SCH ×10 (21:48)
[2017-01-15 04:39] LABS: ALT (SGPT) 47 U/L (8-55); AST (SGOT) 37 U/L (5-34); Alkaline Phosphatase 516 U/L (40-150); Anion Gap 12 mmol/L (10-20); BUN (Urea Nitrogen) 9 mg/dL (8.4-25.7); Bilirubin, Total 0.7 mg/dL (0.2-1.2); Calc. Creatinine Clearance 67 mL/min (70-130); Calcium 9.5 mg/dL (7.8-10.44); Carbon Dioxide 22 mmol/L (22-29); Chloride 106 mmol/L (98-107); Estimated GFR-MDRD 60; Globulin 3.6 g/dL (2.4-3.5); Magnesium 1.6 mg/dL (1.6-2.6); Phosphorus 3.9 mg/dL (2.3-4.7); Protein, Total 6.9 g/dL (6.0-8.3)
[2017-01-15] MEDS: Sodium Chloride 0.9% 1,000 ML IV SCH (05:46)
[2017-01-15] MEDS: [UNRECOGNIZED DRUG - REMARK] FS SCH (08:00)
[2017-01-15] MEDS: Lactinex Tablet PO SCH (09:21)
[2017-01-15] MEDS: Multivitamin W/ Minerals 1 TAB PO SCH (09:24)
[2017-01-15] MEDS: Heparin 5,000 UNITS/ML VIAL SC SCH (09:25)
[2017-01-15] MEDS: Cholestyramine/Aspartame 4 gm Packet PO SCH (09:27)
[2017-01-15] MEDS: Morphine 10 MG/0.5 ML ORAL SYRINGE PO SCH (09:44)
[2017-01-15] MEDS: [UNRECOGNIZED DRUG - OTHER] SC SCH (09:49)
[2017-01-15] MEDS: OLANZapine 5 MG TAB PO SCH (09:50)
[2017-01-15] MEDS: Vancomycin HCl 50 MG, Sodium Chloride 0.9% 10 ML in Syringe 1 ML IVPB PRN (09:56)
--- NOTE | 2017-01-15 10:33 | PDOC.PN ---
- Subjective Encounter Start Date: 01/15/17 Encounter Start Time: 08:20 Patient seen and examined. No new complaints. No overnight events - Objective MAR Reviewed: Yes Vital Signs & Weight: Vital Signs (12 hours) Temp Pulse Resp BP Pulse Ox 01/15/17 07:53 97.6 F 63 16 131/81 99 Weight Admit Weight 194 lb 1 oz Weight 191 lb 3.2 oz I&O: 01/14/17 01/15/17 01/16/17 06:59 06:59 06:59 Intake Total 2166 2740 Output Total 2975 3650 Balance -809 -910 Result Diagrams: 01/12/17 04:22 01/15/17 03:24 Phys Exam - Physical Examination Constitutional: NAD HEENT: PERRLA, moist MMs, sclera anicteric Neck: no JVD, supple Respiratory: no wheezing, no rales, no rhonchi Cardiovascular: RRR, no significant murmur, no rub Gastrointestinal: soft, non-tender, no distention, positive bowel sounds iliostomy+ Musculoskeletal: no edema, pulses present Neurological: non-focal, normal sensation Psychiatric: normal affect Skin: no rash, normal turgor Dx/Plan (1) Acute worsening of stage 3 chronic kidney disease Code(s): N18.3 - CHRONIC KIDNEY DISEASE, STAGE 3 (MODERATE) Status: Acute Comment: (2) Bacteremia due to coagulase-negative Staphylococcus Code(s): R78.81 - BACTEREMIA Status: Acute (3) Sepsis associated with vascular access catheter Code(s): T82.7XXA - INFECT/INFLM REACT D/T OTH CARDI/VASC DEV/IMPLNT/GRFT, INIT ; A41.9 - SEPSIS, UNSPECIFIED ORGANISM Status: Acute (4) Anemia, normocytic normochromic Code(s): D64.9 - ANEMIA, UNSPECIFIED Status: Chronic (5) CKD (chronic kidney disease) stage 3, GFR 30-59 ml/min Code(s): N18.3 - CHRONIC KIDNEY DISEASE, STAGE 3 (MODERATE) Status: Chronic (6) FTT (failure to thrive) in adult Status: Chronic (7) HTN (hypertension) Code(s): I10 - ESSENTIAL (PRIMARY) HYPERTENSION Status: Chronic Qualifiers: Hypertension type: essential hypertension Qualified Code(s): I10 - Essential (primary) hypertension (8) High output ileostomy Code(s): R19.8 - OTH SYMPTOMS AND SIGNS INVOLVING THE DGSTV SYS AND ABDOMEN; Z93.2 - ILEOSTOMY STATUS Status: Chronic (9) Malnutrition of moderate degree Code(s): E44.0 - MODERATE PROTEIN-CALORIE MALNUTRITION Status: Chronic (10) Mental retardation Code(s): F79 - UNSPECIFIED INTELLECTUAL DISABILITIES Status: Chronic (11) On total parenteral nutrition (TPN) Code(s): Z78.9 - OTHER SPECIFIED HEALTH STATUS Status: Chronic (12) Short gut syndrome Code(s): K91.2 - POSTSURGICAL MALABSORPTION, NOT ELSEWHERE CLASSIFIED Status: Chronic Comment: h/o total colectomy with ileostomy (13) Vitamin D deficiency Code(s): E55.9 - VITAMIN D DEFICIENCY, UNSPECIFIED Status: Chronic - Plan cont current plan of care, 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 Review of Systems - Review of Systems ENT: negative: Ear Pain, Ear Discharge, Nose Pain, Nose Discharge, Nose Congestion, Mouth Pain, Mouth Swelling, Throat Pain, Throat Swelling, Other Respiratory: negative: Cough, Dry, Shortness of Breath, Hemoptysis, SOB with Excertion, Pleuritic Pain, Sputum, Wheezing Cardiovascular: negative: Chest Pain, Palpitations, Orthopnea, Paroxysmal Noc. Dyspnea, Edema, Light Headedness, Other Gastrointestinal: negative: Nausea, Vomiting, Abdominal Pain, Diarrhea, Constipation, Melena, Hematochezia, Other Genitourinary: negative: Dysuria, Frequency, Incontinence, Hematuria, Retention , Other Musculoskeletal: negative: Neck Pain, Shoulder Pain, Arm Pain, Back Pain, Hand Pain, Leg Pain, Foot Pain, Other - Medications/Allergies Allergies/Adverse Reactions: Allergies Allergy/AdvReac Type Severity Reaction Status Date / Time ceftriaxone sodium Allergy Verified 08/01/16 11:55 [From Rocephin] vancomycin Allergy Verified 11/11/16 11:59 Medications: Current Medications Acetaminophen (Tylenol) 650 mg PO Q4H PRN PRN Reason: Headache/Fever or Pain Acidophilus (Floranex) 1 tab PO BID [facility] Last Admin: 01/15/17 09:21 Dose: 1 tab Cholestyramine Resin (Questran Light) 8 gm PO BID[facility] Last Admin: 01/15/17 09:27 Dose: 8 gm Heparin Sodium (Porcine) (Heparin) 5,000 units SC BID [facility] Last Admin: 01/15/17 09:25 Dose: 5,000 units Sodium Chloride (Normal Saline 0.9%) 1,000 mls @ 100 mls/hr IV .Q10H [facility] Last Admin: 01/15/17 05:46 Dose: 1,000 mls Vancomycin HCl 50 mg/ Sodium (Chloride 10 ml/ Syringe) 11 mls @ 0 mls/hr IVPB PRN PRN PRN Reason: LOCK FLUSH WHEN NOT IN USE Last Admin: 01/15/17 09:56 Dose: 11 mls Sodium Acetate 20 meq/ Sodium Chloride 15 meq/ Potassium Chloride 15 meq/ Potassium Acetate 10 meq/ Calcium Gluconate 5 meq/ Magnesium Sulfate 5 meq/ Multivitamins 10 ml/ Chromium/Copper/Manganese/Seleni/Zn 5 ml/Dextrose/Water/ Amino Acids/Sterile Water 1,553.3511 mls @ 129.446 mls/hr IV 1900 [facility] Last Admin: 01/14/17 21:48 Dose: 1,553.3511 mls Iron/Minerals/Multivitamins (Theragran M) 1 tab PO DAILY [facility] Last Admin: 01/15/17 09:24 Dose: 1 tab Morphine Sulfate (Roxanol Solution) 1.2 mg PO QID [facility] Last Admin: 01/15/17 09:44 Dose: 1.2 mg Stop Tpn At 0700 0 each FS 0700 [facility] Last Admin: 01/15/17 08:00 Dose: 1 each Olanzapine (Zyprexa) 7.5 mg PO DAILY [facility] Last Admin: 01/15/17 09:50 Dose: 7.5 mg Pantoprazole Sodium (Protonix) 40 mg PO DAILY [facility] Last Admin: 01/15/17 09:21 Dose: 40 mg Teduglutide [Gattex] (0.3742 Ml) 0 each SC DAILY [facility] Last Admin: 01/15/17 09:49 Dose: 1 each Sodium Chloride (Flush - Normal Saline) 10 ml IVF Q12HR [facility] Last Admin: 01/15/17 09:50 Dose: 10 ml Sodium Chloride (Flush - Normal Saline) 10 ml IVF PRN PRN PRN Reason: Saline Flush
[2017-01-15 11:39] VITALS: BP 126/63; TEMP 97
--- NOTE | 2017-01-15 12:01 | DIS ---
DATE OF ADMISSION: 01/05/2017 DATE OF DISCHARGE: 01/15/2017 PRIMARY CARE PHYSICIAN: Dr. Dell Crawford. DISCHARGE DISPOSITION: Home with home health. PRIMARY DISCHARGE DIAGNOSES: 1. Acute on chronic kidney failure, baseline chronic kidney disease stage 3. 2. Bacteremia due to coagulase negative Staphylococcus aureus. 3. Sepsis associated with a Urbano catheter. SECONDARY DISCHARGE DIAGNOSES: Vitamin D deficiency, short gut syndrome on TPN therapy, mental tootie rdation, moderate protein calorie malnutrition, hypertension, high ileostomy output, failure to thri ve in adult, chronic kidney disease stage 3, anemia, normocytic, normochromic. PRIMARY PROCEDURE/OPERATION: None. RADIOLOGICAL INVESTIGATION: Abdominal ultrasound on admission showed post-cholecystectomy changes, mild hepatomegaly. SIGNIFICANT LABORATORIES: WBC 10.5, hemoglobin 9.9, platelets 319. BMP: Sodium 136, potassium 4.1 , BUN 9, creatinine 1.45, phosphorus 3.9, magnesium 1.6, alkaline phosphatase 516, AST 37, albumin 3 .6. Blood culture was positive for Staphylococcus saprophyticus. DISCHARGE MEDICATIONS: Daptomycin 500 mg IV daily until 01/20/2017. Patient will resume his TPN th erapy as directed. Continue following medications: Questran Light 8 grams p.o. b.i.d., Lactinex 1 capsule p.o. b.i.d., morphine solution 0.6 mL p.o. q.i.d., multivitamin 1 tablet p.o. daily, olanzapine 7.5 mg p.o. sunni y, Creon DR 1 capsule p.o. t.i.d., Protonix 40 mg p.o. daily, Gattex subQ daily. CONTRAINDICATIONS: None. CODE STATUS: FULL CODE. INPATIENT CONSULTANTS: Dr. Negrete was following while in hospital and he recommended daptomycin ther apy upon discharge and after daptomycin therapy, patient will need blood culture. At this point, ou r goal is to preserve his Urbano catheter. Dr. Gill was following while in hospital for high ileostomy output. TEST RESULTS PENDING ON DISCHARGE: None. ALLERGIES: ROCEPHIN and VANCOMYCIN. DISCHARGE PLAN: Post hospital, the patient is discharged to home with IV antibiotic therapy and IV TPN therapy. Patient will need blood culture after finishing of antibiotic therapy in 1 week. The patient will follow up with primary care physician and Dr. Dell Crawford as well as Dr. Negrete. HOSPITAL COURSE: A 61-year-old male who was admitted by Dr. Zamora on 01/05/2017. Please see his H\ T\P for further details. This patient was having fever and that is why he was admitted. He initial ly went to [facility] and subsequently, he was transferred to our hospital. His bl ood culture was positive for Staphylococcus saprophyticus. We did blood culture from his Urbano ca theter as well as peripheral both were positive. The patient was receiving antibiotic therapy while in hospital. He was getting vancomycin lock therapy. His cultures remained positive and that is w hy Dr. Negrete recommended to continue with daptomycin for at least 1 week and subsequently, he will n eed blood culture. This patient is at high risk for recurrent admission given that if daptomycin therapy does not work well and repeat blood culture is still positive from Urbano catheter as well as from peripheral and if he continued to get fever at home, then he will be readmitted in hospital. At that time, we rachele l consider Urbano catheter removal. With help of case management manager, we have resumed Home Health for TPN therapy as well as vancomycin lock therapy as well as daptomycin therapy. While in hospital, he was also given IV fluids for his acute on chronic kidney failure and now is up to his baseline. The patient is hemodynamically stable. He remained afebrile while in hospital. At this point, john ent will resume all his previous medication. Patient was seen and examined at bedside today. Total time spent on discharge more than 30 minutes.
== END 2017-01-15 13:54 | disposition home health service (06) | DRG 314 ==
LOC: ERS 14:54 → 2NO 16:50 → T4-A 01-06 15:48
PROVIDERS: ADMIT Internal Medicine; ATTEND Internal Medicine
DX: T80.211A Bloodstream infection due to central venous catheter, initial encounter (principal); A41.01 Sepsis due to Methicillin susceptible Staphylococcus aureus; K83.1 Obstruction of bile duct; N17.9 Acute kidney failure, unspecified; E70.30 Albinism, unspecified; E44.0 Moderate protein-calorie malnutrition; N18.3 Chronic kidney disease, stage 3 (moderate); K91.2 Postsurgical malabsorption, not elsewhere classified; J98.11 Atelectasis; F25.9 Schizoaffective disorder, unspecified; F70 Mild intellectual disabilities; E87.6 Hypokalemia; K21.9 Gastro-esophageal reflux disease without esophagitis; I12.9 Hypertensive chronic kidney disease with stage 1 through stage 4 chronic kidney disease, or unspecified chronic kidney disease; Z88.1 Allergy status to other antibiotic agents; Z90.49 Acquired absence of other specified parts of digestive tract; E55.9 Vitamin D deficiency, unspecified; Z68.24 Body mass index [BMI] 24.0-24.9, adult; R62.7 Adult failure to thrive; D63.1 Anemia in chronic kidney disease; Z93.2 Ileostomy status
CPT/HCPCS: 36415; 76700; 80048; 80053; 83605; 83735; 84100; 84478; 85025; 87040; 87077; 87149; 87186; 96360; A4216; A4217; J0878; J1644; J1956; J2020; J3370; J3475; J3480; J7050

== ENCOUNTER 2017-02-21 14:55 | Inpatient (IN) | payer MEDICARE, MEDICAID ==
[2017-02-21] MEDS ORDERED: Aspirin 325 MG TAB ONE (15:46)
[2017-02-21] MEDS ORDERED: Norepinephrine 8 MG/250 ML BAG IVPB PRN (16:00)
[2017-02-21] MEDS ORDERED: Acetaminophen 325 MG TAB PO PRN (16:45)
[2017-02-21] MEDS ORDERED: Meropenem 1 GM in Sodium Chloride 0.9% 100 ML IVPB SCH (17:15)
[2017-02-21] MEDS: Sodium Chloride 0.9% 1,000 ML IV SCH (17:20)
[2017-02-21] MEDS: Linezolid 600 MG in Premix Bag 1 BAG IVPB SCH (18:41)
[2017-02-21] MEDS: Famotidine/PF 20 mg/2ml Vial SLOW IVP SCH (20:22)
[2017-02-21] MEDS: Heparin 5,000 UNITS/ML VIAL SC SCH (20:23)
[2017-02-21] MEDS ORDERED: FLU VACC QS2017-18 36 mo. & older 0.5 ML SYRINGE IM ONE (21:00)
--- NOTE | 2017-02-21 23:11 | HP ---
CHIEF COMPLAINT: Not feeling well, vomiting, abdominal pain, fever. HISTORY OF PRESENT ILLNESS: The patient is a 61-year-old male who was just discharged from the hospital a month ago when he was hospitalized for sepsis, which was associated with his Urbano catheter and bacteremia with Staphylococcus aureus and Staphylococcus saprophyticus. At this time, sheldon arora has very similar presentation nausea, some vomiting, febrile and feverish, temperature elevated. [facility] and was transferred to the hospital after evaluation for admission. His temperature was up to 102. Please refer to the H and P, which was dictated a month ago, there was not much any change since that time. PAST MEDICAL HISTORY: Positive for: 1. Short bowel syndrome. 2. Colostomy. 3. Schizoaffective disorder. 4. Mild mental retardation. 5. Albinism. 6. Chronic kidney disease. 7. Chronic hypokalemia. 8. Hypertension. 9. Gastroesophageal reflux disease. 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 ALLERGIES: CEFTRIAXONE and VANCOMYCIN. CURRENT MEDICATIONS: He was discharged on daptomycin 500 mg IV daily until 01/20 and other medicatio ns were Questran Light 8 grams twice a day, Lactinex 1 capsule twice a day, morphine solution 0.6 mg p.o. 4 times a day, multivitamin 1 tablet daily, olanzapine 7.5 mg daily, Creon DR 1 capsule 3 times a day, Protonix 40 mg daily, Gattex subcutaneous daily. His Code status is FULL. Surrogate decision maker is somebody from his foster home where he is ness villarreal from. He is not able to tell me the last name of this person. FAMILY HISTORY: Biological parents are unknown. SOCIAL HISTORY: He lives in the foster home with foster parents. No history of tobacco use, alcohol use, or recreational drug use. REVIEW OF SYSTEMS: Postpone since the patient has some significant actually difficulty of talking an d his speech is quite difficult to understand. PHYSICAL EXAMINATION: VITAL SIGNS: His blood pressure is 109/54, pulse is 66, respiratory rate is 22. Temperature was up to 102 and he had 95% on room air pulse oximetry. HEENT: His head is atraumatic, normocephalic. Eyes: He has some strabismus. Pupils are responding to light properly. Sclerae are nonicteric. Oral mucosa is somewhat dry. NECK: Supple. No lymphadenopathy. LUNGS: Clear. HEART: S1, S2 normal. No S3, no S4, no murmur. ABDOMEN: Soft, nontender. He actually is somewhat tender to the palpation of the left side. He has colostomy bag on the right side with a small amount of stool. EXTREMITIES: No clubbing, cyanosis, or edema. NEUROLOGIC: He is alert and oriented. His speech is difficult to understand. SKIN: He has some albinism. DIAGNOSTIC DATA: Chest x-ray did not show any infiltrates. No pneumothorax, no hemothorax. IMPRESSION: 1. Urosepsis, most likely again secondary to his left upper chest central line, which looks somewhat suspicious for being infected. 2. Acute on chronic renal failure. 3. A short gut syndrome on TPN therapy. 4. Mental retardation. 5. Moderate protein-calorie malnutrition. 6. Hypertension. 7. Ileostomy. 8. Normocytic and normochromic anemia. 9. Vitamin D deficiency. 10. Schizoaffective disorder. PLAN: Admission to the Intensive Care Unit. Condition is critical. He is FULL CODE. He received a pproximately 4 liters of IV fluids. His blood pressure is still on the lower side. We are going to start him on Levophed and titrate up to a MAP of 65. We will obtain a Critical Care consultation efe Cardenas. We will start him on Zyvox 600 mg IV piggyback now and then q.12 hours and meropenem 1 gram every 8 hours. Also, we will keep him on clear liquids for now and we are going to hold on hi s feeding for now until he is more stable. We will keep him on PUD prophylaxis with H2 peggy IV an d DVT prophylaxis with heparin and SCDs. Blood cultures and urine cultures were drawn and ID consult ation with Dr. Negrete requested.
[2017-02-22] MEDS: Meropenem 1 GM in Sodium Chloride 0.9% 100 ML IVPB SCH ×3 (00:09→17:07)
[2017-02-22] MEDS: Sodium Chloride 0.9% 1,000 ML IV SCH ×4 (00:10→20:42)
[2017-02-22 04:55] LABS: #Lymphocytes 1.4 thou/uL (1.20-3.40); #Monocytes 0.7 thou/uL (0.11-0.59); #Neutrophils 10.6 thou/uL (1.40-6.50); %Basophils 0.2 % (0.0-1.0); %Eosinophils 0.3 % (0.0-10.0); %Lymphocytes 11.1 % (21.0-51.0); %Monocytes 5.1 % (0.0-10.0); Hematocrit 28.5 % (42.0-52.0); Mean Platelet Volume 8.9 fL (7.4-10.4); Red Blood Cell (RBC) Count 3.33 mill/uL (4.70-6.10); White Blood Cell (WBC) Count 12.8 thou/uL (4.8-10.8)
[2017-02-22] MEDS: Linezolid 600 MG in Premix Bag 1 BAG IVPB SCH ×2 (05:08→17:46)
[2017-02-22 05:22] LABS: Anion Gap 8 mmol/L (10-20); BUN (Urea Nitrogen) 11 mg/dL (8.4-25.7); Calc. Creatinine Clearance 63 mL/min (70-130); Calcium 8.5 mg/dL (7.8-10.44); Carbon Dioxide 23 mmol/L (22-29); Chloride 110 mmol/L (98-107); Estimated GFR-MDRD 56
[2017-02-22] MEDS ORDERED: Mag-Al 1200 mg/1200 mg/30 ML UDCUP PO PRN (07:40)
[2017-02-22] MEDS ORDERED: Chloraseptic Spray 180 ml Bottle PO PRN (07:40)
[2017-02-22] MEDS ORDERED: Ondansetron ODT 4 MG TAB PO PRN (07:40)
[2017-02-22] MEDS ORDERED: Loratadine 10 MG TAB PO PRN (07:40)
[2017-02-22] MEDS ORDERED: Eucerin (Mineral Oil/Petrolatum,White) 30 gm Jar TOP PRN (07:40)
[2017-02-22] MEDS ORDERED: HYDROcodone/Acetaminophen 5/325 mg Tablet PO PRN (07:40)
[2017-02-22] MEDS ORDERED: Sodium Chloride 0.65% Nasal 44 ML BOT EA NARE PRN (07:40)
[2017-02-22] MEDS ORDERED: Loperamide HCl 2 MG CAP PO PRN (07:40)
[2017-02-22] MEDS ORDERED: Artificial Tears 18 DROP/0.9 ML EA EYE PRN (07:40)
[2017-02-22] MEDS ORDERED: hydrALAZINE 20 MG/ML VIAL SLOW IVP PRN (07:40)
[2017-02-22] MEDS ORDERED: Ondansetron HCl/PF 4 MG/2 ML Vial IVP PRN (07:40)
[2017-02-22] MEDS ORDERED: Zolpidem Tartrate 5 MG TAB PO PRN (07:40)
[2017-02-22] MEDS ORDERED: Diabetic Tussin 200 MG/10 ML UDCUP PO PRN (07:40)
[2017-02-22] MEDS ORDERED: Diphenoxylate HCl/Atropine Tablet PO PRN (07:40)
[2017-02-22] MEDS ORDERED: Pancrelipase DR 12000 1 CAP PO SCH (08:00)
[2017-02-22] MEDS: Cholestyramine/Aspartame 4 gm Packet PO SCH ×2 (08:26→16:12)
[2017-02-22] MEDS: Heparin 5,000 UNITS/ML VIAL SC SCH ×3 (08:27→20:25)
[2017-02-22] MEDS: Lactinex Tablet PO SCH ×2 (08:27→20:31)
[2017-02-22] MEDS: Multivitamin W/ Minerals 1 TAB PO SCH (08:27)
[2017-02-22] MEDS: Famotidine/PF 20 mg/2ml Vial SLOW IVP SCH ×2 (08:27→20:27)
[2017-02-22] MEDS: OLANZapine 5 MG TAB PO SCH (08:31)
[2017-02-22] MEDS ORDERED: TEDUGLUTIDE 5 MG SC SCH (09:00)
[2017-02-22] MEDS ORDERED: OLANZAPINE 7.5 MG PO SCH (09:00)
[2017-02-22] MEDS ORDERED: ACIDOPHILUS PO SCH (09:00)
[2017-02-22] MEDS ORDERED: BULGARICUS PO SCH (09:00)
[2017-02-22] MEDS ORDERED: [UNRECOGNIZED DRUG - OTHER] PO SCH (09:00)
[2017-02-22] MEDS ORDERED: [UNRECOGNIZED DRUG - OTHER] SC SCH (09:00)
[2017-02-22] MEDS: Morphine IR 10 MG/5 ML UDCUP PO SCH ×4 (09:12→20:22)
--- NOTE | 2017-02-22 11:50 | PDOC.PN ---
- Subjective Encounter Start Date: 02/22/17 Encounter Start Time: 07:20 -: old records requested/rev pt seen in CCU, pt is stable, did not require vasopressure, BP stable, pt reports that he is not on TPN any more, - Objective Resuscitation Status: Resuscitation Status FULL:Full Resuscitation MAR Reviewed: Yes Vital Signs & Weight: Vital Signs (12 hours) Temp Pulse Resp BP Pulse Ox 02/22/17 11:03 97.9 F 52 L 18 124/69 100 02/22/17 08:00 97.6 F 70 18 100 02/22/17 07:00 97.6 F 02/22/17 04:00 98.2 F 02/22/17 00:00 98.5 F Weight Weight 191 lb 12.835 oz Most Recent Monitor Data Heart Rate from ECG 55 NIBP 119/63 NIBP BP-Mean 79 Respiration from ECG 0 SpO2 97 I&O: 02/21/17 02/22/17 02/23/17 06:59 06:59 06:59 Intake Total 2478 1314 Output Total 620 1200 Balance 1858 114 Result Diagrams: 02/22/17 04:15 02/22/17 04:15 EKG Reviewed by me: Yes (NSR) Phys Exam - Physical Examination Constitutional: NAD HEENT: PERRLA, moist MMs, sclera anicteric Neck: no JVD, supple mediport+ Respiratory: no wheezing, no rales, no rhonchi Cardiovascular: RRR, no significant murmur, no rub Gastrointestinal: soft, non-tender, no distention, positive bowel sounds Iliostomy+ Musculoskeletal: no edema, pulses present Neurological: non-focal, normal sensation Lymphatic: no nodes Psychiatric: normal affect, A&O x 3 Skin: no rash, normal turgor Dx/Plan (1) Acute worsening of stage 3 chronic kidney disease Code(s): N18.3 - CHRONIC KIDNEY DISEASE, STAGE 3 (MODERATE) Status: Acute Comment: (2) Sepsis with acute organ dysfunction Code(s): A41.9 - SEPSIS, UNSPECIFIED ORGANISM; R65.20 - SEVERE SEPSIS WITHOUT SEPTIC SHOCK Status: Acute (3) Abnormal LFTs Code(s): R79.89 - OTHER SPECIFIED ABNORMAL FINDINGS OF BLOOD CHEMISTRY Status : Chronic (4) Anemia, normocytic normochromic Code(s): D64.9 - ANEMIA, UNSPECIFIED Status: Chronic (5) CKD (chronic kidney disease) stage 3, GFR 30-59 ml/min Code(s): N18.3 - CHRONIC KIDNEY DISEASE, STAGE 3 (MODERATE) Status: Chronic (6) FTT (failure to thrive) in adult Status: Chronic (7) HTN (hypertension) Code(s): I10 - ESSENTIAL (PRIMARY) HYPERTENSION Status: Chronic Qualifiers: Hypertension type: essential hypertension Qualified Code(s): I10 - Essential (primary) hypertension (8) High output ileostomy Code(s): R19.8 - OTH SYMPTOMS AND SIGNS INVOLVING THE DGSTV SYS AND ABDOMEN; Z93.2 - ILEOSTOMY STATUS Status: Chronic (9) Malnutrition of moderate degree Code(s): E44.0 - MODERATE PROTEIN-CALORIE MALNUTRITION Status: Chronic (10) Mental retardation Code(s): F79 - UNSPECIFIED INTELLECTUAL DISABILITIES Status: Chronic (11) On total parenteral nutrition (TPN) Code(s): Z78.9 - OTHER SPECIFIED HEALTH STATUS Status: Chronic (12) Short gut syndrome Code(s): K91.2 - POSTSURGICAL MALABSORPTION, NOT ELSEWHERE CLASSIFIED Status: Chronic Comment: h/o total colectomy with ileostomy (13) Vitamin D deficiency Code(s): E55.9 - VITAMIN D DEFICIENCY, UNSPECIFIED Status: Chronic (14) Hypotension Status: Resolved - Plan cont current plan of care, continue antibiotics * now hypotension resolved with IVF * renal function improving * continue IVF * follow on culture * if culture is positive for infection, then will need to remove mediport * now will ask GI if still pt needs to be on TPN during night time, unsure why his not on now, but if not needed only concern is risk for recurrent ANDREW * if not need of mediport, will DC * will transfer to medical floor * medication reviewed as below * symptomatic treatment. Review of Systems - Review of Systems ENT: negative: Ear Pain, Ear Discharge, Nose Pain, Nose Discharge, Nose Congestion, Mouth Pain, Mouth Swelling, Throat Pain, Throat Swelling, Other Respiratory: negative: Cough, Dry, Shortness of Breath, Hemoptysis, SOB with Excertion, Pleuritic Pain, Sputum, Wheezing Cardiovascular: negative: Chest Pain, Palpitations, Orthopnea, Paroxysmal Noc. Dyspnea, Edema, Light Headedness, Other Gastrointestinal: negative: Nausea, Vomiting, Abdominal Pain, Diarrhea, Constipation, Melena, Hematochezia, Other Genitourinary: negative: Dysuria, Frequency, Incontinence, Hematuria, Retention , Other Musculoskeletal: negative: Neck Pain, Shoulder Pain, Arm Pain, Back Pain, Hand Pain, Leg Pain, Foot Pain, Other Skin: negative: Rash, Lesions, Aquiles, Bruising, Other - Medications/Allergies Allergies/Adverse Reactions: Allergies Allergy/AdvReac Type Severity Reaction Status Date / Time ceftriaxone sodium Allergy Verified 08/01/16 11:55 [From Rocephin] vancomycin Allergy Verified 11/11/16 11:59 Medications: Current Medications Acetaminophen (Tylenol) 650 mg PO Q4H PRN PRN Reason: Headache/Fever or Pain Hydrocodone Bitart/Acetaminophen ([place] 5/325) 1 tab PO Q4H PRN PRN Reason: Moderate Pain (4-6) Acidophilus (Floranex) 1 tab PO BID [facility] Last Admin: 02/22/17 08:27 Dose: 1 tab Al Hydroxide/Mg Hydroxide (Maalox) 15 ml PO Q4H PRN PRN Reason: Heartburn or Indigestion Lipase/Protease/Amylase ([place] [id number]) 1 cap PO TID-[facility] Artificial Tears (Tears Naturale) 0 drop EA EYE PRN PRN PRN Reason: Dry Eyes Cholestyramine Resin (Questran Light) 8 gm PO BID-[facility] Last Admin: 02/22/17 08:26 Dose: 8 gm Diphenoxylate HCl/Atropine (Lomotil) 1 tab PO QIDPRN PRN PRN Reason: Diarrhea/Loose Stools Famotidine (Pepcid) 20 mg SLOW IVP Q12HR [facility] Last Admin: 02/22/17 08:27 Dose: 20 mg Guaifenesin (Robitussin Sf) 200 mg PO Q4H PRN PRN Reason: Cough Heparin Sodium (Porcine) (Heparin) 5,000 units SC TID [facility] Last Admin: 02/22/17 08:27 Dose: 5,000 units Hydralazine HCl (Apresoline) 10 mg SLOW IVP Q4H PRN PRN Reason: Systolic BP > 180 Linezolid 600 mg/ Device 300 mls @ 150 mls/hr IVPB 0600,1800 [facility] Last Admin: 02/22/17 05:08 Dose: 300 mls Meropenem 1 gm/ Sodium (Chloride) 100 mls @ 200 mls/hr IVPB 0100,0900,1700 [facility] Last Admin: 02/22/17 09:12 Dose: 100 mls Sodium Chloride (Normal Saline 0.9%) 1,000 mls @ 150 mls/hr IV .Q6H40M [facility] Last Admin: 02/22/17 05:17 Dose: Not Given Amino Acids/Electrolytes/Dextrose (Aa 8.5%-D50w W/ Lytes) 2,000 mls @ 75 mls/ hr IV INF [facility] Iron/Minerals/Multivitamins (Theragran M) 1 tab PO DAILY [facility] Last Admin: 02/22/17 08:27 Dose: 1 tab Loperamide HCl (Imodium) 2 mg PO PRN PRN PRN Reason: Diarrhea/Loose Stools Loratadine (Claritin) 10 mg PO DAILYPRN PRN PRN Reason: Sinus Symptoms Mineral Oil/White Petrolatum (Eucerin Cream) 0 gm TOP BIDPRN PRN PRN Reason: Dry Skin Morphine Sulfate (Morphine Ir) 6 mg PO QID [facility] Last Admin: 02/22/17 09:12 Dose: Not Given Olanzapine (Zyprexa) 7.5 mg PO DAILY [facility] Last Admin: 02/22/17 08:31 Dose: 7.5 mg Ondansetron HCl (Zofran Odt) 4 mg PO Q6H PRN PRN Reason: Nausea/Vomiting Ondansetron HCl (Zofran) 4 mg IVP Q6H PRN PRN Reason: Nausea/Vomiting Teduglutide [Gattex] (0.3742 Ml) 0 each SC DAILY [facility] Phenol (Chloraseptic [place] 180 Ml Bot) 0 ml PO PRN PRN PRN Reason: Sore Throat Sodium Chloride ([place] Nasal [place] 0.65%) 0 ml EA NARE QIDPRN PRN PRN Reason: Nasal Congestion Sodium Chloride (Flush - Normal Saline) 10 ml IVF Q12HR [facility] Last Admin: 02/22/17 08:27 Dose: 10 ml Sodium Chloride (Flush - Normal Saline) 10 ml IVF PRN PRN PRN Reason: Saline Flush Zolpidem Tartrate (Ambien) 5 mg PO HSPRN PRN PRN Reason: Insomnia
[2017-02-22] MEDS: Pancrelipase DR 12000 1 CAP PO SCH ×2 (12:16→16:13)
--- NOTE | 2017-02-22 12:53 | CON ---
DATE OF CONSULTATION: 02/22/2017 CONSULTING PHYSICIAN: Hermilo Hankins M.D. REASON FOR CONSULTATION: Septic shock. HISTORY OF PRESENT ILLNESS: Mr. Wilson is a 61-year-old male who was hospitalized yesterday with low blood pressure. He has a history of a Urbano catheter placement in the left IJ for administration o f TPN secondary to short bowel syndrome. According to the patient, the Urbano catheter is no longer being used and he is taking most of his nutrition orally. He was briefly on Levophed last night, bu t that has now been stopped and his blood pressure has been normal for the last 6 hours. PAST MEDICAL HISTORY: 1. 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 2. Colostomy. 3. Schizoaffective disorder. 4. Mild mental retardation. 5. Albinism. 6. Chronic kidney disease. 7. Hypokalemia. 8. Hypertension. 9. Gastroesophageal reflux. PAST SURGICAL HISTORY: Multiple abdominal surgeries including colostomy placement and short bowel re section. ALLERGIES: CEFTRIAXONE and VANCOMYCIN. MEDICATIONS PRIOR TO ADMISSION: He has been on daptomycin, Questran, Lactinex, multivitamin, olanzap ine, Creon, and Protonix. FAMILY MEDICAL HISTORY: Unknown. SOCIAL HISTORY: Does not smoke, does not consume alcohol. REVIEW OF SYSTEMS: Otherwise, negative. PHYSICAL EXAMINATION: VITAL SIGNS: Temperature 97.6, pulse 65, blood pressure 107/55. Total intake last in 24 hours 2478, output 620. HEENT: Pupils react. Sclerae are anicteric. Oropharynx clear. NECK: No JVD. CHEST: Urbano catheter present in the left upper chest. LUNGS: Clear to auscultation. CARDIOVASCULAR: S1, S2 regular. ABDOMEN: Soft, nontender. Colostomy noted appears to be well cared for. EXTREMITIES: No clubbing, cyanosis, or edema. LABORATORY DATA: White blood cell count 12.8, hematocrit 28.5, platelet count 246. Sodium 137, pota ssium 3.9, chloride 110, CO2 of 23, BUN 11, creatinine 1.5, glucose 81. ASSESSMENT: Indwelling catheter infection with shock at the time of admission, which is now resolved with fluid administration and antibiotics. PLAN: 1. He can be transferred out to the medical floor. 2. Suggest consultation with ID and General Surgery with consideration of removing the catheter.
[2017-02-22] MEDS ORDERED: LYTES IV SCH ×3 (14:00→22:00)
[2017-02-22] MEDS ORDERED: [UNRECOGNIZED DRUG - OTHER] IV SCH ×2 (14:00→22:00)
[2017-02-22] MEDS ORDERED: [UNRECOGNIZED DRUG - OTHER] IV SCH (19:00)
[2017-02-22] MEDS ORDERED: Sodium Chloride 0.9% 1,000 ML IV SCH (19:45)
[2017-02-23] MEDS: Meropenem 1 GM in Sodium Chloride 0.9% 100 ML IVPB SCH ×3 (01:11→16:56)
[2017-02-23 04:42] LABS: #Eosinphils 0.2 thou/uL (0.0-0.7); #Lymphocytes 1.5 thou/uL (1.20-3.40); #Monocytes 0.5 thou/uL (0.11-0.59); %Basophils 0.3 % (0.0-1.0); %Eosinophils 2.6 % (0.0-10.0); %Lymphocytes 24.6 % (21.0-51.0); %Monocytes 8.7 % (0.0-10.0); Hematocrit 29.9 % (42.0-52.0); Mean Platelet Volume 8.6 fL (7.4-10.4); Red Blood Cell (RBC) Count 3.46 mill/uL (4.70-6.10); White Blood Cell (WBC) Count 6.2 thou/uL (4.8-10.8)
[2017-02-23 05:02] LABS: Anion Gap 8 mmol/L (10-20); BUN (Urea Nitrogen) 10 mg/dL (8.4-25.7); Calc. Creatinine Clearance 67 mL/min (70-130); Calcium 8.7 mg/dL (7.8-10.44); Carbon Dioxide 24 mmol/L (22-29); Chloride 110 mmol/L (98-107); Estimated GFR-MDRD 60
[2017-02-23] MEDS: Linezolid 600 MG in Premix Bag 1 BAG IVPB SCH (05:12)
[2017-02-23] MEDS: Multivitamin W/ Minerals 1 TAB PO SCH (08:54)
[2017-02-23] MEDS: Pancrelipase DR 12000 1 CAP PO SCH ×3 (08:54→16:56)
[2017-02-23] MEDS: Lactinex Tablet PO SCH ×2 (08:54→20:16)
[2017-02-23] MEDS: Cholestyramine/Aspartame 4 gm Packet PO SCH ×2 (08:54→16:56)
[2017-02-23] MEDS: OLANZapine 5 MG TAB PO SCH (08:54)
[2017-02-23] MEDS: Morphine IR 10 MG/5 ML UDCUP PO SCH ×4 (08:56→20:16)
[2017-02-23] MEDS: Heparin 5,000 UNITS/ML VIAL SC SCH ×3 (08:56→20:16)
[2017-02-23] MEDS: Famotidine/PF 20 mg/2ml Vial SLOW IVP SCH ×2 (08:56→20:15)
--- NOTE | 2017-02-23 11:17 | PDOC.PN ---
- Subjective Encounter Start Date: 02/23/17 Encounter Start Time: 07:00 pt is doing well, no fever, overall doing well, tolerating po well - Objective Resuscitation Status: Resuscitation Status FULL:Full Resuscitation MAR Reviewed: Yes Vital Signs & Weight: Vital Signs (12 hours) Temp Pulse Resp BP Pulse Ox 02/23/17 07:35 97.9 F 52 L 20 130/68 99 02/23/17 03:46 97.7 F 52 L 20 134/69 97 Weight Weight 193 lb 6.4 oz Most Recent Monitor Data Heart Rate from ECG 55 NIBP 119/63 NIBP BP-Mean 79 Respiration from ECG 0 SpO2 97 I&O: 02/22/17 02/23/17 02/24/17 06:59 06:59 06:59 Intake Total 2478 5314 Output Total 036 3400 Balance 7386 1702 Result Diagrams: 02/23/17 04:00 02/23/17 04:00 Phys Exam - Physical Examination Constitutional: NAD HEENT: PERRLA, moist MMs, sclera anicteric Neck: no JVD, supple Respiratory: no wheezing, no rales, no rhonchi mediport+ Cardiovascular: RRR, no significant murmur, no rub Gastrointestinal: soft, non-tender, no distention, positive bowel sounds ilieostomy+ Musculoskeletal: no edema, pulses present Neurological: non-focal, normal sensation Lymphatic: no nodes Psychiatric: normal affect, A&O x 3 Skin: no rash, normal turgor Dx/Plan (1) Acute worsening of stage 3 chronic kidney disease Code(s): N18.3 - CHRONIC KIDNEY DISEASE, STAGE 3 (MODERATE) Status: Acute Comment: (2) Sepsis with acute organ dysfunction Code(s): A41.9 - SEPSIS, UNSPECIFIED ORGANISM; R65.20 - SEVERE SEPSIS WITHOUT SEPTIC SHOCK Status: Acute (3) Abnormal LFTs Code(s): R79.89 - OTHER SPECIFIED ABNORMAL FINDINGS OF BLOOD CHEMISTRY Status : Chronic (4) Anemia, normocytic normochromic Code(s): D64.9 - ANEMIA, UNSPECIFIED Status: Chronic (5) CKD (chronic kidney disease) stage 3, GFR 30-59 ml/min Code(s): N18.3 - CHRONIC KIDNEY DISEASE, STAGE 3 (MODERATE) Status: Chronic (6) FTT (failure to thrive) in adult Status: Chronic (7) HTN (hypertension) Code(s): I10 - ESSENTIAL (PRIMARY) HYPERTENSION Status: Chronic Qualifiers: Hypertension type: essential hypertension Qualified Code(s): I10 - Essential (primary) hypertension (8) High output ileostomy Code(s): R19.8 - OTH SYMPTOMS AND SIGNS INVOLVING THE DGSTV SYS AND ABDOMEN; Z93.2 - ILEOSTOMY STATUS Status: Chronic (9) Malnutrition of moderate degree Code(s): E44.0 - MODERATE PROTEIN-CALORIE MALNUTRITION Status: Chronic (10) Mental retardation Code(s): F79 - UNSPECIFIED INTELLECTUAL DISABILITIES Status: Chronic (11) On total parenteral nutrition (TPN) Code(s): Z78.9 - OTHER SPECIFIED HEALTH STATUS Status: Chronic (12) Short gut syndrome Code(s): K91.2 - POSTSURGICAL MALABSORPTION, NOT ELSEWHERE CLASSIFIED Status: Chronic Comment: h/o total colectomy with ileostomy (13) Vitamin D deficiency Code(s): E55.9 - VITAMIN D DEFICIENCY, UNSPECIFIED Status: Chronic (14) Hypotension Status: Resolved - Plan cont current plan of care, continue antibiotics * continue IVF * renal function continue to improve * so far culture negative * will consult GI and ID to decide about mediport removal * medication reviewed as below * symptomatic treatment. Review of Systems - Review of Systems ENT: negative: Ear Pain, Ear Discharge, Nose Pain, Nose Discharge, Nose Congestion, Mouth Pain, Mouth Swelling, Throat Pain, Throat Swelling, Other Respiratory: negative: Cough, Dry, Shortness of Breath, Hemoptysis, SOB with Excertion, Pleuritic Pain, Sputum, Wheezing Cardiovascular: negative: Chest Pain, Palpitations, Orthopnea, Paroxysmal Noc. Dyspnea, Edema, Light Headedness, Other Gastrointestinal: negative: Nausea, Vomiting, Abdominal Pain, Diarrhea, Constipation, Melena, Hematochezia, Other Genitourinary: negative: Dysuria, Frequency, Incontinence, Hematuria, Retention , Other Musculoskeletal: negative: Neck Pain, Shoulder Pain, Arm Pain, Back Pain, Hand Pain, Leg Pain, Foot Pain, Other Skin: negative: Rash, Lesions, Aquiles, Bruising, Other - Medications/Allergies Allergies/Adverse Reactions: Allergies Allergy/AdvReac Type Severity Reaction Status Date / Time ceftriaxone sodium Allergy Verified 08/01/16 11:55 [From Rocephin] vancomycin Allergy Verified 11/11/16 11:59 Medications: Current Medications Acetaminophen (Tylenol) 650 mg PO Q4H PRN PRN Reason: Headache/Fever or Pain Hydrocodone Bitart/Acetaminophen ([place] 5/325) 1 tab PO Q4H PRN PRN Reason: Moderate Pain (4-6) Acidophilus (Floranex) 1 tab PO BID [facility] Last Admin: 02/23/17 08:54 Dose: 1 tab Al Hydroxide/Mg Hydroxide (Maalox) 15 ml PO Q4H PRN PRN Reason: Heartburn or Indigestion Lipase/Protease/Amylase ([place] [id number]) 1 cap PO TID-[facility] Last Admin: 02/23/17 08:54 Dose: 1 cap Artificial Tears (Tears Naturale) 0 drop EA EYE PRN PRN PRN Reason: Dry Eyes Cholestyramine Resin (Questran Light) 8 gm PO BID-[facility] Last Admin: 02/23/17 08:54 Dose: 8 gm Diphenoxylate HCl/Atropine (Lomotil) 1 tab PO QIDPRN PRN PRN Reason: Diarrhea/Loose Stools Famotidine (Pepcid) 20 mg SLOW IVP Q12HR [facility] Last Admin: 02/23/17 08:56 Dose: 20 mg Guaifenesin (Robitussin Sf) 200 mg PO Q4H PRN PRN Reason: Cough Heparin Sodium (Porcine) (Heparin) 5,000 units SC TID [facility] Last Admin: 02/23/17 08:56 Dose: 5,000 units Hydralazine HCl (Apresoline) 10 mg SLOW IVP Q4H PRN PRN Reason: Systolic BP > 180 Linezolid 600 mg/ Device 300 mls @ 150 mls/hr IVPB 0600,1800 [facility] Last Admin: 02/23/17 05:12 Dose: 300 mls Meropenem 1 gm/ Sodium (Chloride) 100 mls @ 200 mls/hr IVPB 0100,0900,1700 [facility] Last Admin: 02/23/17 08:59 Dose: 100 mls Amino Acids/Electrolytes/Dextrose (Aa 8.5%-D50w W/ Lytes) 2,000 mls @ 75 mls/ hr IV 2200 [facility] Last Admin: 02/22/17 22:16 Dose: 2,000 mls Iron/Minerals/Multivitamins (Theragran M) 1 tab PO DAILY [facility] Last Admin: 02/23/17 08:54 Dose: 1 tab Loperamide HCl (Imodium) 2 mg PO PRN PRN PRN Reason: Diarrhea/Loose Stools Loratadine (Claritin) 10 mg PO DAILYPRN PRN PRN Reason: Sinus Symptoms Mineral Oil/White Petrolatum (Eucerin Cream) 0 gm TOP BIDPRN PRN PRN Reason: Dry Skin Morphine Sulfate (Morphine Ir) 6 mg PO QID [facility] Last Admin: 02/23/17 08:56 Dose: 6 mg Olanzapine (Zyprexa) 7.5 mg PO DAILY [facility] Last Admin: 02/23/17 08:54 Dose: 7.5 mg Ondansetron HCl (Zofran Odt) 4 mg PO Q6H PRN PRN Reason: Nausea/Vomiting Ondansetron HCl (Zofran) 4 mg IVP Q6H PRN PRN Reason: Nausea/Vomiting Teduglutide [Gattex] (0.3742 Ml) 0 each SC DAILY [facility] Phenol (Chloraseptic [place] 180 Ml Bot) 0 ml PO PRN PRN PRN Reason: Sore Throat Sodium Chloride ([place] Nasal [place] 0.65%) 0 ml EA NARE QIDPRN PRN PRN Reason: Nasal Congestion Sodium Chloride (Flush - Normal Saline) 10 ml IVF Q12HR [facility] Last Admin: 02/23/17 08:59 Dose: 10 ml Sodium Chloride (Flush - Normal Saline) 10 ml IVF PRN PRN PRN Reason: Saline Flush Zolpidem Tartrate (Ambien) 5 mg PO HSPRN PRN PRN Reason: Insomnia
--- NOTE | 2017-02-23 18:30 | CON ---
DATE OF CONSULTATION: 02/23/2017. REASON FOR CONSULTATION: Bacteremia. HISTORY OF PRESENT ILLNESS: A 61-year-old with a history of megacolon with total colectomy and then various complications with adhesions led to small bowel resection and development of short gut syndro me and recurrent episodes of volume depletion with renal insufficiency and multiple admissions for th truman complications. The patient has had previous hemodialysis during one of those episodes. He has h ad also bacteremia associated with venous access colonization and one episode of exfoliated erythrode rma in the past felt to be due to a beta lactam either meropenem or cephalosporin induced. I saw him in December when he presented with coagulase negative Staphylococcus bacteremia. At that time, we re commended decolonization of the line with vancomycin lock solution plus IV vancomycin, which patient has completed, now he returns with nausea, vomiting, fever, had some abdominal pain associated with t hat as well and now he feels better. No headaches, no change in visual symptoms, sore throat, odynop hagia, dysphagia, no cough or sputum production or chest pain. He voids without difficulty. PAST MEDICAL HISTORY: Short gut syndrome, colostomy, TPN, schizoaffective disorder with mild mental retardation, albinism, renal insufficiency, hypokalemia, hypertension, GERD, methicillin-resistant St aphylococcus epidermides and bacteremia associated with line colonization. ALLERGIES: CEFTRIAXONE, and VANCOMYCIN. MEDICATIONS: Currently receiving Tylenol, [place], Floranex, Creon, Questran, Lomotil, Pepcid, linezol id, meropenem. FAMILY HISTORY: Noncontributory. SOCIAL HISTORY: Lives with foster home parents. Never a smoker. PHYSICAL EXAMINATION: VITAL SIGNS: The patient has been afebrile here at the hospital. Blood pressure 130/68, pulse 52, r espirations 16-20, O2 saturation 99%. GENERAL: Appears in no distress. Awake and alert, oriented. LUNGS: Clear. HEART: S1, S2 with regular rate. ABDOMEN: Flat, soft, no tenderness. Left Urbano catheter without inflammatory changes. Moves all extremities equally. NEUROLOGIC: Cognitive function appears to be intact. LABORATORY DATA: White cell count 12.8 and 6.2, hemoglobin 9.2, platelets 239 with 82% neutrophils, now 63%. Klebse[place] pneumonia 1 out of 2 sets of blood cultures from 02/21, two repeat sets from negative. Urine culture no growth at 24 hours. Urinalysis with no WBCs. Patient had echocardiogram and this showed a normal diastolic function, mildly dilated left atrium. No vegetations. The last abdominal and pelvis CT from 01/05/2017 with wall thickening, multiple loops of small bowel within th e left upper quadrant of the abdomen and wall thickening of the bladder. ASSESSMENT: Short gut syndrome after multiple loops of small bowel resection and management of compl ications of adhesions prior colectomy for management of megacolon, complications related to the above with line colonization and sepsis, recurring episodes of ileus or obstruction managed conservatively , now admitted with vomiting and abdominal pain which have improved and 1 out of 4 sets of blood cult ures positive for Klebsiella pneumonia yet to be susceptibility tested. DISCUSSION: This episode seems to be unrelated to the most recent admission and this more likely to be secondary to the gastrointestinal complications referred to above. Consider CT abdomen and pelvis with contrast. Discontinue linezolid and continue meropenem until susceptibilities of the Klebsiell a are resulted. I would not remove the Urbano catheter at this point in time yet.
[2017-02-23] MEDS ORDERED: Sodium Chloride 0.9% 1,000 ML IV SCH (19:30)
[2017-02-24] MEDS: Meropenem 1 GM in Sodium Chloride 0.9% 100 ML IVPB SCH ×3 (01:02→16:53)
[2017-02-24 04:35] LABS: #Eosinphils 0.2 thou/uL (0.0-0.7); #Lymphocytes 2.3 thou/uL (1.20-3.40); #Monocytes 0.6 thou/uL (0.11-0.59); #Neutrophils 3.4 thou/uL (1.40-6.50); %Basophils 0.1 % (0.0-1.0); %Eosinophils 2.5 % (0.0-10.0); %Monocytes 9.3 % (0.0-10.0); Hematocrit 30.5 % (42.0-52.0); Mean Platelet Volume 8.5 fL (7.4-10.4); Red Blood Cell (RBC) Count 3.58 mill/uL (4.70-6.10); White Blood Cell (WBC) Count 6.5 thou/uL (4.8-10.8)
[2017-02-24 04:53] LABS: Anion Gap 10 mmol/L (10-20); BUN (Urea Nitrogen) 7 mg/dL (8.4-25.7); Calc. Creatinine Clearance 72 mL/min (70-130); Calcium 8.9 mg/dL (7.8-10.44); Carbon Dioxide 23 mmol/L (22-29); Chloride 110 mmol/L (98-107); Estimated GFR-MDRD 64
[2017-02-24] MEDS: Cholestyramine/Aspartame 4 gm Packet PO SCH ×2 (09:31→16:54)
[2017-02-24] MEDS: Morphine IR 10 MG/5 ML UDCUP PO SCH ×4 (09:31→21:10)
[2017-02-24] MEDS: Multivitamin W/ Minerals 1 TAB PO SCH (09:32)
[2017-02-24] MEDS: OLANZapine 5 MG TAB PO SCH (09:32)
[2017-02-24] MEDS: Lactinex Tablet PO SCH ×2 (09:32→21:12)
[2017-02-24] MEDS: Heparin 5,000 UNITS/ML VIAL SC SCH ×2 (09:32→21:12)
[2017-02-24] MEDS: Pancrelipase DR 12000 1 CAP PO SCH ×3 (09:32→16:54)
[2017-02-24] MEDS: Famotidine 20 MG TAB PO SCH ×2 (09:32→21:12)
--- NOTE | 2017-02-24 10:11 | PDOC.PN ---
- Subjective Encounter Start Date: 02/24/17 Encounter Start Time: 07:10 Patient seen and examined. No new complaints. No overnight events - Objective Resuscitation Status: Resuscitation Status FULL:Full Resuscitation MAR Reviewed: Yes Vital Signs & Weight: Vital Signs (12 hours) Temp Pulse Resp BP BP Pulse Ox 02/24/17 08:00 98.0 F 53 L 16 02/24/17 07:10 97.7 F 56 L 20 129/72 97 02/23/17 23:27 98.0 F 53 L 16 121/57 L 98 Weight Admit Weight 193 lb 6.4 oz Weight 191 lb 14.4 oz Most Recent Monitor Data Heart Rate from ECG 55 NIBP 119/63 NIBP BP-Mean 79 Respiration from ECG 0 SpO2 97 I&O: 02/23/17 02/24/17 02/25/17 06:59 06:59 06:59 Intake Total 5314 1260 Output Total 3400 1000 Balance 1914 260 Result Diagrams: 02/24/17 04:20 02/24/17 04:20 Phys Exam - Physical Examination Constitutional: NAD HEENT: PERRLA, moist MMs, sclera anicteric Neck: no JVD, supple Respiratory: no wheezing, no rales, no rhonchi Cardiovascular: RRR, no significant murmur, no rub Gastrointestinal: soft, non-tender, no distention, positive bowel sounds ilieostomy+ Musculoskeletal: no edema, pulses present Neurological: non-focal, normal sensation Psychiatric: normal affect, A&O x 3 Skin: no rash, normal turgor Dx/Plan (1) Acute worsening of stage 3 chronic kidney disease Code(s): N18.3 - CHRONIC KIDNEY DISEASE, STAGE 3 (MODERATE) Status: Acute Comment: (2) Sepsis with acute organ dysfunction Code(s): A41.9 - SEPSIS, UNSPECIFIED ORGANISM; R65.20 - SEVERE SEPSIS WITHOUT SEPTIC SHOCK Status: Acute (3) Abnormal LFTs Code(s): R79.89 - OTHER SPECIFIED ABNORMAL FINDINGS OF BLOOD CHEMISTRY Status : Chronic (4) Anemia, normocytic normochromic Code(s): D64.9 - ANEMIA, UNSPECIFIED Status: Chronic (5) CKD (chronic kidney disease) stage 3, GFR 30-59 ml/min Code(s): N18.3 - CHRONIC KIDNEY DISEASE, STAGE 3 (MODERATE) Status: Chronic (6) FTT (failure to thrive) in adult Status: Chronic (7) HTN (hypertension) Code(s): I10 - ESSENTIAL (PRIMARY) HYPERTENSION Status: Chronic Qualifiers: Hypertension type: essential hypertension Qualified Code(s): I10 - Essential (primary) hypertension (8) High output ileostomy Code(s): R19.8 - OTH SYMPTOMS AND SIGNS INVOLVING THE DGSTV SYS AND ABDOMEN; Z93.2 - ILEOSTOMY STATUS Status: Chronic (9) Malnutrition of moderate degree Code(s): E44.0 - MODERATE PROTEIN-CALORIE MALNUTRITION Status: Chronic (10) Mental retardation Code(s): F79 - UNSPECIFIED INTELLECTUAL DISABILITIES Status: Chronic (11) On total parenteral nutrition (TPN) Code(s): Z78.9 - OTHER SPECIFIED HEALTH STATUS Status: Chronic (12) Short gut syndrome Code(s): K91.2 - POSTSURGICAL MALABSORPTION, NOT ELSEWHERE CLASSIFIED Status: Chronic Comment: h/o total colectomy with ileostomy (13) Vitamin D deficiency Code(s): E55.9 - VITAMIN D DEFICIENCY, UNSPECIFIED Status: Chronic (14) Hypotension Status: Resolved - Plan cont current plan of care, continue antibiotics * await culture and sensitivity result * no need of removal of hickmen * medication reviewed as below * symptomatic treatment. * continue meropenam * start diet * DC IVF Review of Systems - Review of Systems ENT: negative: Ear Pain, Ear Discharge, Nose Pain, Nose Discharge, Nose Congestion, Mouth Pain, Mouth Swelling, Throat Pain, Throat Swelling, Other Respiratory: negative: Cough, Dry, Shortness of Breath, Hemoptysis, SOB with Excertion, Pleuritic Pain, Sputum, Wheezing Cardiovascular: negative: Chest Pain, Palpitations, Orthopnea, Paroxysmal Noc. Dyspnea, Edema, Light Headedness, Other Gastrointestinal: negative: Nausea, Vomiting, Abdominal Pain, Diarrhea, Constipation, Melena, Hematochezia, Other Genitourinary: negative: Dysuria, Frequency, Incontinence, Hematuria, Retention , Other Musculoskeletal: negative: Neck Pain, Shoulder Pain, Arm Pain, Back Pain, Hand Pain, Leg Pain, Foot Pain, Other Skin: negative: Rash, Lesions, Aquiles, Bruising, Other - Medications/Allergies Allergies/Adverse Reactions: Allergies Allergy/AdvReac Type Severity Reaction Status Date / Time ceftriaxone sodium Allergy Verified 08/01/16 11:55 [From Rocephin] vancomycin Allergy Verified 11/11/16 11:59 Medications: Current Medications Acetaminophen (Tylenol) 650 mg PO Q4H PRN PRN Reason: Headache/Fever or Pain Hydrocodone Bitart/Acetaminophen ([place] 5/325) 1 tab PO Q4H PRN PRN Reason: Moderate Pain (4-6) Acidophilus (Floranex) 1 tab PO BID [facility] Last Admin: 02/24/17 09:32 Dose: 1 tab Al Hydroxide/Mg Hydroxide (Maalox) 15 ml PO Q4H PRN PRN Reason: Heartburn or Indigestion Lipase/Protease/[place] ([place] [id number]) 1 cap PO TID-[facility] Last Admin: 02/24/17 09:32 Dose: 1 cap Artificial Tears (Tears Naturale) 0 drop EA EYE PRN PRN PRN Reason: Dry Eyes Cholestyramine Resin (Questran Light) 8 gm PO BID-[facility] Last Admin: 02/24/17 09:31 Dose: 8 gm Diphenoxylate HCl/Atropine (Lomotil) 1 tab PO QIDPRN PRN PRN Reason: Diarrhea/Loose Stools Famotidine (Pepcid) 20 mg PO BID [facility] Last Admin: 02/24/17 09:32 Dose: 20 mg Guaifenesin (Robitussin Sf) 200 mg PO Q4H PRN PRN Reason: Cough Heparin Sodium (Porcine) (Heparin) 5,000 units SC BID [facility] Last Admin: 02/24/17 09:32 Dose: Not Given Hydralazine HCl (Apresoline) 10 mg SLOW IVP Q4H PRN PRN Reason: Systolic BP > 180 Meropenem 1 gm/ Sodium (Chloride) 100 mls @ 200 mls/hr IVPB 0100,0900,1700 [facility] Last Admin: 02/24/17 09:32 Dose: 100 mls Iron/Minerals/Multivitamins (Theragran M) 1 tab PO DAILY [facility] Last Admin: 02/24/17 09:32 Dose: 1 tab Loperamide HCl (Imodium) 2 mg PO PRN PRN PRN Reason: Diarrhea/Loose Stools Loratadine (Claritin) 10 mg PO DAILYPRN PRN PRN Reason: Sinus Symptoms Mineral Oil/White Petrolatum (Eucerin Cream) 0 gm TOP BIDPRN PRN PRN Reason: Dry Skin Morphine Sulfate (Morphine Ir) 6 mg PO QID [facility] Last Admin: 02/24/17 09:31 Dose: 6 mg Olanzapine (Zyprexa) 7.5 mg PO DAILY [facility] Last Admin: 02/24/17 09:32 Dose: 7.5 mg Ondansetron HCl (Zofran Odt) 4 mg PO Q6H PRN PRN Reason: Nausea/Vomiting Ondansetron HCl (Zofran) 4 mg IVP Q6H PRN PRN Reason: Nausea/Vomiting Teduglutide [Gattex] (0.3742 Ml) 0 each SC DAILY [facility] Phenol (Chloraseptic Cameron 180 Ml Bot) 0 ml PO PRN PRN PRN Reason: Sore Throat Sodium Chloride ([place] Nasal Cameron 0.65%) 0 ml EA NARE QIDPRN PRN PRN Reason: Nasal Congestion Sodium Chloride (Flush - Normal Saline) 10 ml IVF Q12HR [facility] Last Admin: 02/24/17 09:32 Dose: 10 ml Sodium Chloride (Flush - Normal Saline) 10 ml IVF PRN PRN PRN Reason: Saline Flush Zolpidem Tartrate (Ambien) 5 mg PO HSPRN PRN PRN Reason: Insomnia
--- NOTE | 2017-02-24 15:11 | PQF ---
TIBURCIO CESPEDES, GIUSEPPE LOGAN MD [id number] CLINICAL DOCUMENTATION IMPROVEMENT CLARIFICATION FORM: ICD-10 Updated PLEASE DO AN ADDENDUM TO THE PROGRESS NOTE WITH ANY DOCUMENTATION UPDATES OR ADDITIONS AND CARRY THROUGH TO DC SUMMARY. THANK YOU. DATE: 02-24-17 ATTN: DR. DESHPANDE Please exercise your independent, professional judgment in responding to the clarification form. Clinical indicators are provided on the bottom of this form for your review Please check appropriate box(s): [x ] Shock (please further specify type): [ ] Hypovolemic [ ] Cardiogenic [ x ] Septic [ ] Shock Unspecified [ ] Other diagnosis [ ] Unable to determine In addition, please specify: Present on Admission (POA): [ x ] Yes [ ] No [ ] Unable to determine For continuity of documentation, please document condition throughout progress notes and discharge summary. Thank You. CLINICAL INDICATORS - SIGNS / SYMPTOMS / LABS LABS: 02-22 WBC 12.8 H&P: SATALITE ER TEMP 102 ER: TEMP 97.6 ORAL RESP SBP 79 - 109 DBP 48 - 54 RISK FACTORS ER/ H&P: SEPSIS W/ ORGAN DYSFUNCTION (ANDREW) H&P: DC'D FROM HOSPITAL 1 MONTH AGO FOR SEPSIS D/T ZELAYA CATHETER 02-22 DR. SURESH CONSULT: INDWELLING CATHETER INFECTION W/ SHOCK AT THE TIME OF ADMISSION, WHICH IS NOW RESOLVED W/ FLUID ADMINISTRATION AND ABX. TREATMENTS: ER: LEVOPHED CPOE: ICU MONITORING 02-21 H&P: HAD APPROXIMATELY 4 LITERS IVF - LEVOPHED TO TITRATE UP TO A MAP OF 65 CPOE - MAR: MERREM 02-22 TO 02-24 BLOOD CULTURES ID CONSULT THANK YOU, LY (This form is maintained as a part of the permanent medical record) 2014 [employer]. All Rights Reserved Ly Farias RN, BS [email or web address] [facility]
[2017-02-25] MEDS: Meropenem 1 GM in Sodium Chloride 0.9% 100 ML IVPB SCH ×3 (00:28→17:33)
[2017-02-25 05:07] LABS: Anion Gap 10 mmol/L (10-20); BUN (Urea Nitrogen) 10 mg/dL (8.4-25.7); Calc. Creatinine Clearance 63 mL/min (70-130); Calcium 9.2 mg/dL (7.8-10.44); Carbon Dioxide 24 mmol/L (22-29); Chloride 107 mmol/L (98-107); Estimated GFR-MDRD 55; Magnesium 1.2 mg/dL (1.6-2.6)
[2017-02-25 05:13] LABS: Phosphorus 1.8 mg/dL (2.3-4.7)
--- NOTE | 2017-02-25 06:51 | CON ---
DATE OF CONSULTATION: 02/24/2017 REASON FOR CONSULTATION: The patient is known to the GI service for short gut syndrome. Apparently Internal Medicine noted the reason for GI consult was to determine whether or not that the MediPort n eeded to be removed. It appears that Infectious Disease has already answered that question. Their q uestion is why he keeps coming in with infection. He has been with sepsis, however, blood cultures p ositive for Klebsiella 10/2016 and staph on 01/05/2017 and then again on this admission on 02/21/[address] Negrete felt that the first Klebsiella infection was before he was starting TPN, but actually th e patient was started on TPN in August on home TPN at night. The TPN was started at that time as he wa s having recurrent admissions for acute renal failure secondary to high output from his ostomy and de hydration. He had no admissions for sepsis before the TPN was begun. The etiology of Klebsiella inf ection is a bit unclear. He does have elevated alkaline phosphatase persistent which was felt to be related to fatty infiltration of the liver. He has not been ever shown to have gallstones, the patie nt had done an done an MRCP either. The other concern has been he has a thickened bladder on CT imag ing and at times, he has been reported to have thickened small bowel loops, although most of these CA T scans have been done without contrast. Presently, he is without pain, nausea, or vomiting. When a sked if he had pain at home, he does not really recall. PAST MEDICAL HISTORY: 1. 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 2. Schizoaffective disorder. 3. Mild mental retardation. 4. Albinism. 5. Chronic kidney disease. This has been stable with no admissions for dehydration since starting T PN in 08/2016. 6. History of reflux. PAST SURGICAL HISTORY: Please see my outline of surgeries from June and consult of this year. ALLERGIES: CEFTRIAXONE and VANCOMYCIN. 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 CURRENT MEDICATIONS: He was on daptomycin until 01/20/2017, Questran Light, Lactinex, deodorized tin cture of opium, multivitamin, olanzapine daily, Creon daily, Protonix, Gattex subcutaneous daily. On home TPN. PRESENT MEDICATIONS: P.r.n. Tylenol, Floranex, Maalox, Questran Light, Lomotil, Pepcid, Creon, Zofra n, Ambien, meropenem, pancrelipase. He was on normal saline at 75 mL an hour. He is on IV fluids. PHYSICAL EXAMINATION: The patient does seen nurse's note that he had about 500 mL of stool in his os thania today. He has had no fever or vomiting per the report and did eat lunch today. LUNGS: Clear. HEART: Regular rate and rhythm without clicks or murmurs. ABDOMEN: Soft, nontender, no palpable hepatomegaly. VITAL SIGNS: Pulse 53, temperature 98, blood pressure 121/57. EXTREMITIES: No clubbing, cyanosis, or edema. SKIN: Without rash or lesions. LABORATORY STUDIES: White count 6.5, it was 12 on the , 15 on the . Hemoglobin 8.6, platele t count 258. Sodium 139, potassium 3.9, BUN and creatinine are 7 and 1.38. On alkaline phosph atase was 69, AST and ALT of 58 and 74, albumin 3.8, alkaline phosphatase 570 back in December. ASSESSMENT: 1. Admission for recurrent bacteremia Klebsiella, although this was present in October. He was alrea dy on TPN at that time. The etiology is unclear. Biliary tract would be a possibility that there no evidence of biliary ductal dilatation or stones in the past. The elevated alkaline phosphatase has been felt to be related to steatosis, TPN. The source could possibly be GI. There have been some CA T scans that indicate possibly some thickened small bowel loops. He has been on CAT scan without con trast did not show any thickening. Additionally, he has had a persistently thickened urinary bladder wall and this could be a source although no urine cultures have been obtained at the time, he has bl adder infections. 2. History of recurrent dehydration. He was actually maintaining nutrition pretty well though lost some weight, but has recurrent admissions for acute renal failure from high ostomy output, renal fail ure, and dehydration. The TPN was started and was to maintain hydration in the home setting. 3. Short bowel syndrome. He has not responded to diet changes, extensive dietary counseling with ramón thomas. Control diet in the hospital and the use of deodorized tincture of opium. Therefore, he was s tarted on Gattex, which has helped to some degree as well as not clear that he could maintain free of TPN. RECOMMENDATIONS: 1. MRCP to evaluate the biliary tree. 2. If this is negative, may consider repeat endoscopy to evaluate the small bowel for any types of o ngoing inflammation. Still the CAT scan show looks like a very large loop of small bowel and he has had some massive small bowel distention in the past and could be getting a component of bacterial ove rgrowth and treating him periodically for this may be something that could decrease the risk of infec tion. 3. With regard to IV fluids, we will see how he does with his labs without any extra hydration. If we can get him back on the Gattex, that needs to be started here in the hospital. If not, he will ne ed to be back on IV fluids soon or he will become dehydrated.
[2017-02-25] MEDS: Morphine IR 10 MG/5 ML UDCUP PO SCH ×4 (09:08→21:42)
[2017-02-25] MEDS: Pancrelipase DR 12000 1 CAP PO SCH ×3 (09:08→17:33)
[2017-02-25] MEDS: OLANZapine 5 MG TAB PO SCH (12:35)
[2017-02-25] MEDS: Lactinex Tablet PO SCH ×2 (12:35→21:44)
[2017-02-25] MEDS: Multivitamin W/ Minerals 1 TAB PO SCH (12:35)
[2017-02-25] MEDS: Famotidine 20 MG TAB PO SCH ×2 (12:37→21:44)
[2017-02-25] MEDS: Cholestyramine/Aspartame 4 gm Packet PO SCH ×2 (12:37→17:33)
[2017-02-25] MEDS: Heparin 5,000 UNITS/ML VIAL SC SCH ×2 (12:38→21:44)
--- NOTE | 2017-02-25 12:39 | MRI ---
MRI OF THE ABDOMEN WITHOUT CONTRAST History: Elevated alkaline phosphates and recurrent bacteremia. Technique: Multiplanar, multisequence MRI images were obtained of the abdomen without contrast. MRCP images performed. FINDINGS: This exam is limited secondary to motion artifact. The gallbladder is not seen and has likely been re moved. The common bile duct is normal in caliber. The pancreatic duct is normal in caliber without ev idence of dilatation. The MRCP images are non-interpretable secondary to motion. The assessment of th e biliary tree and pancreatic duct was performed on the T2 Haste sequence. No focal liver lesions are seen. The kidneys, adrenal glands, spleen, and pancreas are unremarkable. No abdominal adenopathy is seen. No marrow signal abnormality is present. IMPRESSION: 1. No hepatic abnormality. 2. No evidence of dilatation of the biliary tree. POS: [facility]
--- NOTE | 2017-02-25 15:02 | PRG ---
DATE OF SERVICE: 02/25/2017 Mr. Flores has had about 500 mL of output last night. PHYSICAL EXAMINATION: VITAL SIGNS: Temperature 97, pulse 55, blood pressure 102/53, weight 191, urine 500 mL. ABDOMEN: Soft, nontender. LABORATORY DATA: Sodium 138, potassium 3.3, BUN and creatinine are 10 and 1.56, magnesium 1.2, phosp horus 1.8. ASSESSMENT AND PLAN: 1. The patient has been off TPN since 02/12/2017 and has maintained his hydration. 2. He is admitted now for the third time with bacteremia, presumptively with line colonization, Hansel mathew in October, Klebsiella this time and then about a month ago it was Staph. In talking with Dr. Negrete and Dr. Hunt, his primary chemist instrumentation, now that he is showing that h e can remain hydrated off of the TPN we are going to try to get the Urbano out as this may be the so urce of infection. The question of biliary source was raised as well with a persistently elevated alkaline phosphatase, which was present prior to his starting TPN; however, MRCP has been negative.
--- NOTE | 2017-02-25 17:35 | PDOC.PN ---
- Subjective Encounter Start Date: 02/25/17 Encounter Start Time: 17:10 Subjective: f/u for bacteremia with Klebsiella and ? source but suspicion of Urbano -: catheter. MRI abd unrevealing as to abd source. Plan for Urbano removal. -: Tolerating po intake, low-grade temp noted. - Objective Resuscitation Status: Resuscitation Status FULL:Full Resuscitation MAR Reviewed: Yes Vital Signs & Weight: Vital Signs (12 hours) Temp Pulse Resp BP Pulse Ox 02/25/17 13:56 97.8 F 02/25/17 08:11 97.9 F 55 L 20 102/53 L 99 02/25/17 08:00 97.9 F 55 L 20 99 Weight Admit Weight 193 lb 6.4 oz Weight 191 lb 6.4 oz Most Recent Monitor Data Heart Rate from ECG 55 NIBP 119/63 NIBP BP-Mean 79 Respiration from ECG 0 SpO2 97 I&O: 02/24/17 02/25/17 02/26/17 06:59 06:59 06:59 Intake Total 1260 1750 Output Total 1000 1100 Balance 260 650 Result Diagrams: 02/24/17 04:20 02/25/17 04:35 Additional Labs: Microbiology 02/21/17 18:00 Urine muniz catheter Urine Culture - Final NO GROWTH AT 36 HOURS 02/21/17 16:08 Venous blood - Right Hand Blood Culture - Preliminary NO GROWTH AT 48 HOURS 02/21/17 16:08 Venous blood - Left Hand Blood Culture - Preliminary NO GROWTH AT 48 HOURS Laboratory Tests 02/22/17 02/23/17 02/24/17 04:15 04:00 04:20 Hgb 9.2 L 9.3 L Potassium 3.9 Creatinine 1.38 H Radiology Reviewed by me: Yes (MRI abd - no acute process) Phys Exam - Physical Examination Constitutional: NAD smiling, alert, responsive to questions HEENT: PERRLA Neck: no JVD, supple Respiratory: no wheezing, clear to auscultation bilateral Cardiovascular: RRR + iliostomy in place Gastrointestinal: soft, non-tender, no distention, positive bowel sounds Musculoskeletal: no edema, pulses present Neurological: moves all 4 limbs Skin: normal turgor, cap refill <2 seconds Dx/Plan (1) Bacteremia due to Klebsiella pneumoniae Code(s): R78.81 - BACTEREMIA Status: Acute Comment: Klebsiella spp on blood cx from 02/21 but repeat blood cx negative. Continue Meropenem 1gm IV q8h, plan for removal of Urbano catheter suspected of colonizing source (2) Sepsis with acute organ dysfunction Code(s): A41.9 - SEPSIS, UNSPECIFIED ORGANISM; R65.20 - SEVERE SEPSIS WITHOUT SEPTIC SHOCK Status: Acute Comment: Resolved (3) Abnormal LFTs Code(s): R79.89 - OTHER SPECIFIED ABNORMAL FINDINGS OF BLOOD CHEMISTRY Status : Chronic Comment: MRI abd negative (4) CKD (chronic kidney disease) stage 3, GFR 30-59 ml/min Code(s): N18.3 - CHRONIC KIDNEY DISEASE, STAGE 3 (MODERATE) Status: Chronic (5) High output ileostomy Code(s): R19.8 - OTH SYMPTOMS AND SIGNS INVOLVING THE DGSTV SYS AND ABDOMEN; Z93.2 - ILEOSTOMY STATUS Status: Chronic (6) Malnutrition of moderate degree Code(s): E44.0 - MODERATE PROTEIN-CALORIE MALNUTRITION Status: Chronic Comment: Off TPN and tolerating po intake without difficulty (7) Mental retardation Code(s): F79 - UNSPECIFIED INTELLECTUAL DISABILITIES Status: Chronic (8) Short gut syndrome Code(s): K91.2 - POSTSURGICAL MALABSORPTION, NOT ELSEWHERE CLASSIFIED Status: Chronic Comment: h/o total colectomy with ileostomy - Plan continue antibiotics, social media intern, out of bed/ambulate, DVT proph w/SCDs Stable overall -: Continue Meropenem 1gm IV q8h -: Plan for Urbano catheter removal -: Floranex daily -: OOB/ambulate * .
[2017-02-26] MEDS: Meropenem 1 GM in Sodium Chloride 0.9% 100 ML IVPB SCH ×2 (01:15→09:16)
[2017-02-26] MEDS ORDERED: Lidocaine 1% w/Epinephrine 1:200K 30 ML VIAL NERVE BLCK SCH (07:00)
[2017-02-26] MEDS: Famotidine 20 MG TAB PO SCH (09:02)
[2017-02-26] MEDS: Pancrelipase DR 12000 1 CAP PO SCH ×2 (09:02→12:21)
[2017-02-26] MEDS: Cholestyramine/Aspartame 4 gm Packet PO SCH (09:02)
[2017-02-26] MEDS: OLANZapine 5 MG TAB PO SCH (09:03)
[2017-02-26] MEDS: Morphine IR 10 MG/5 ML UDCUP PO SCH ×2 (09:03→13:17)
[2017-02-26] MEDS: Lactinex Tablet PO SCH (09:03)
[2017-02-26] MEDS: Heparin 5,000 UNITS/ML VIAL SC SCH (09:03)
[2017-02-26] MEDS: Multivitamin W/ Minerals 1 TAB PO SCH (09:03)
--- NOTE | 2017-02-26 10:53 | CON ---
DATE OF CONSULTATION: 02/26/2017 HISTORY OF PRESENT ILLNESS: Steve Flores is a 61-year-old male who I placed a Urbano catheter, le ft IJ tunneled for TPN administration 11/05/2016. He now presents with positive blood cultures Klebs iella from 02/21/2017. Dr. Negrete has seen him. Plan is to remove the Urbano catheter and to try hi m off TPN for a period. The patient has an ileostomy with mild prolapse. 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 The patient presented on one occasion and another surgeon saw him and h e underwent operation without obvious intraoperative findings; nonetheless, ileum resection undertake n and anastomosis redone. He unfortunately suffered a leak and had to have an ileostomy. He does guillen ve a rectal stump, which could be used to reconnect him in the future if it was thought that he would benefit from that hopefully, avoiding profuse ileostomy output and dehydration, which he repeatedly suffers from. The patient has chronic kidney disease as a result of his ileostomy. It is mild. GFR is 55-64. Plan is to remove his Urbano catheter at the bedside, this morning.
--- NOTE | 2017-02-26 11:04 | OP ---
DATE OF PROCEDURE: 02/26/2017 PREOPERATIVE DIAGNOSES: Ileostomy with ileostomy prolapse with rectum and distal sigmoid colon avail able for anastomosis should it be thought helpful to him in the future with positive blood cultures a nd a Urbano catheter present, left internal jugular. POSOPERATIVE DIAGNOSES: : Ileostomy with ileostomy prolapse with rectum and distal sigmoid colon av ailable for anastomosis should it be thought helpful to him in the future with positive blood culture s and a Urbano catheter present, left internal jugular. PROCEDURE: Removal of Urbano catheter. SURGEON: Dr. Jake Gillespie ANESTHESIA: 1% Xylocaine with epinephrine. PROCEDURE: At the patient's bedside in his room, catheter exit was prepared with chlorhexidine and l ocal anesthetic 1% Xylocaine with epinephrine infiltrated skin and subcutaneous tissue and catheter a nd cuff dissected free, removed and intact and discarded. Pressure held until hemostatic. The patie nt tolerated the procedure well.
[2017-02-26 11:48] VITALS: BP 116/62; TEMP 98.6
[2017-02-26 11:51] VITALS: BMI 23.3
--- NOTE | 2017-02-26 15:10 | PRG ---
DATE OF SERVICE: 02/25/2017 SUBJECTIVE: Mr. Flores is feeling well. No headaches, no visual symptoms, sore throat, odynophagi a, or dysphagia, no dyspnea or cough. No abdominal pain. OBJECTIVE: VITAL SIGNS: Normal. He has been afebrile since 2 days. LUNGS: Clear. HEART: S1, S2, regular rate. ABDOMEN: Soft. Ileostomy in place. A Urbano catheter in place. LABORATORY DATA: White cell count 6.5, hemoglobin 9.6 and creatinine 1.56. Repeat blood cultures fr om 02/21 no growth at 48 hours. Previous blood culture with Klebsiella pneumoniae and Achromobacter xylosoxidans. ASSESSMENT AND DISCUSSION: Short gut syndrome following a total colectomy for management of megacolo n and complications related to adhesions and small-bowel obstruction, multiple areas of resection. T otal parenteral nutrition given recently to improve his nutritional status, schizoaffective disorder and recent Staphylococcus epidermides bacteremia presumably secondary to Urbano catheter colonizatio n. This bacteremia was treated conservatively and no recurrence thus far, but now he has 2 different gram negative rods isolated. The previous Klebsiella isolate had a different susceptibility profile and now he has this Achromobacter xylosoxidans. It is less likely that this represents a colonizatio n of the line. The line is not going to be used any longer and apparently will be removed by Dr. Tylor godwin. The other possibility is that he has gastrointestinal tract area of inflammatory change, which is associated with the bacteremia. The urinary tract is not likely to be the problem here in view of the negative urine cultures. He has had areas of enteritis identified on CT scan on previous imagin g studies. The biliary tract seems to be okay according to the abdominal MRI. The MRI exam quality was limited because of motion artifact, though. If he truly has an intraabdominal inflammatory proce ss leading to transient bacteremia, we will see him again with this similar problem in the future and this is going to be somewhat refractory issue in view of the difficulty in offering a permanent reso lution for the gastrointestinal inflammatory processes and recurrent obstructions.
--- NOTE | 2017-02-26 23:44 | DIS ---
DATE OF ADMISSION: 02/21/2017 DATE OF DISCHARGE: 02/26/2017 DISCHARGE DIAGNOSES: 1. Bacteremia due to Klebsiella pneumonia and Achromobacter xylosoxidans sensitive to quinolones. 2. Status post Urbano catheter removal, likely colonized with Klebsiella and Achromobacter species. 3. Sepsis with acute organ dysfunction, secondarily to #1, resolved. 4. Transaminitis, unclear etiology. 5. Chronic kidney disease stage 3, stable. 6. 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 7. Mental retardation, stable. CONSULTATIONS: Dr. Gillespie with General Surgery Service. Dr. Gill with GI service. Dr. Negrete with Infectious Disease Service. Dr. Cardenas with Pulmonology Service. PERTINENT LABORATORY DATA AND X-RAY FINDINGS: Potassium ranged between 3.3-3.9, creatinine ranged be tween 1.38-1.56 with estimated GFR ranging between 55-64. CBC showed a white blood cell count rangin g between 6.2-12.8, hemoglobin ranged between 9.2-9.6. Influenza A and B antigen negative, 7. Blood cultures x2 from 02/21/2017 showed one culture with Achromobacter xylosoxidans. Second cul ture showed Klebsiella species sensitive to quinolones. Urine culture dated 02/21/2017 showed no nicolas wth at 48 hours. Repeat blood cultures 02/21/2017 showed no growth at 48 hours. Urine culture dated 02/21/2017 showed no growth at 36 hours. A 2D transthoracic echocardiogram dated 02/21/2017 showed ejection fraction of 50%-55%. Moderate tricuspid valve regurgitation. No valvular vegetations. MRI of the abdomen dated 02/25/2017 showed no hepatic abnormality. No evidence of biliary tree dilatati on. Portable chest x-ray dated 02/21/2017 showed no acute cardiopulmonary process. HOSPITAL COURSE: The patient was initially admitted after presenting with abdominal pain, fever, and vomiting. The patient was noted with sepsis criteria after initial concern for bacteremia from a co lonized Urbano catheter, previously noted with Staphylococcus aureus and Staphylococcus saprophyticu s. Patient also receiving TPN over several months due to short gut syndrome with malnutrition and re current dehydration. The patient was placed on broad spectrum IV antibiotic therapy pending culture results with blood culture showing organisms as stated previously. The patient was evaluated by the Infectious Disease service with recommendations for meropenem, which patient received throughout the hospital course. The patient was evaluated by General Surgery with removal of the left internal jugu lar venous Urbano catheter on 02/26/2017 without complication. The patient was also evaluated by [facility] GI service for persistent transaminitis undergoing MRI imaging of the abdomen showing no specific p athology of the biliary tree or obstructive pathology. Current recommendations are to monitor clinic ally on an outpatient basis. The patient remained clinically stable, tolerating regular oral intake throughout the hospital course without recurrence of abdominal pain. Patient ambulatory without assi stance or difficulty. Overall, the patient remained stable, and ready for discharge on 02/26/2017. DISCHARGE MEDICATIONS: 1. Levaquin 500 mg 1 tab p.o. daily x7 days. 2. Questran Light 8 grams p.o. b.i.d. with meals. 3. Lactinex 1 tablet p.o. b.i.d. 4. Morphine immediate release 0.6 mL p.o. q.i.d. p.r.n. 5. Multivitamin 1 tab p.o. daily. 6. Olanzapine 7.5 mg p.o. daily. 7. Pancrelipase DR 1 capsule p.o. t.i.d. with meals. 8. Protonix 40 mg p.o. daily. 9. Gattex 5 mg subcutaneously daily. FOLLOWUP: Patient will follow up with his primary care provider, Dr. Dell Crawford within 7 days of discharge. CONDITION ON DISCHARGE: Stable. ACTIVITY: ad lauro. DIET: Regular. CODE STATUS: FULL. DISPOSITION: Home on 02/26/2017.
== END 2017-02-26 16:55 | disposition home health service (06) | DRG 314 ==
LOC: ERS 14:55 → CCU 16:44 → ONC 02-22 10:52
PROVIDERS: ADMIT Internal Medicine; ATTEND Internal Medicine
PROC: 05PY33Z Removal of Infusion Device from Upper Vein, Percutaneous Approach (ICD-10-PCS; principal; 2017-02-26)
PROC: 0JPT3XZ Removal of Tunneled Vascular Access Device from Trunk Subcutaneous Tissue and Fascia, Percutaneous Approach (ICD-10-PCS; 2017-02-26)
DX: T80.211A Bloodstream infection due to central venous catheter, initial encounter (principal); A41.59 Other Gram-negative sepsis; R65.21 Severe sepsis with septic shock; E44.0 Moderate protein-calorie malnutrition; K91.2 Postsurgical malabsorption, not elsewhere classified; E70.30 Albinism, unspecified; N17.9 Acute kidney failure, unspecified; N18.3 Chronic kidney disease, stage 3 (moderate); K94.19 Other complications of enterostomy; R74.0 Nonspecific elevation of levels of transaminase and lactic acid dehydrogenase [LDH]; Z68.24 Body mass index [BMI] 24.0-24.9, adult; F70 Mild intellectual disabilities; F25.9 Schizoaffective disorder, unspecified; K21.9 Gastro-esophageal reflux disease without esophagitis; I12.9 Hypertensive chronic kidney disease with stage 1 through stage 4 chronic kidney disease, or unspecified chronic kidney disease; R62.7 Adult failure to thrive; E55.9 Vitamin D deficiency, unspecified; D64.9 Anemia, unspecified; E87.6 Hypokalemia
CPT/HCPCS: 36415; 74181; 80048; 83735; 84100; 85025; 86140; 87086; 93306; 96360; A4216; J1644; J2020; J2185; J7050; S0028

== ENCOUNTER 2017-09-03 07:42 | Day surgery (SDC) | payer MEDICARE, MEDICAID ==
[2017-09-03 08:11] LABS: #Eosinphils 0.1 thou/uL (0.0-0.7); #Lymphocytes 2.4 thou/uL (1.20-3.40); #Monocytes 0.3 thou/uL (0.11-0.59); #Neutrophils 3.3 thou/uL (1.40-6.50); %Basophils 0.3 % (0.0-1.0); %Eosinophils 1.7 % (0.0-10.0); %Lymphocytes 39.4 % (21.0-51.0); %Neutrophils 53.6 % (42.0-75.0); Hemoglobin 12.7 g/dL (14.0-18.0); Mean Corpuscular HGB CONC 32.3 g/dL (32.0-36.0); Mean Corpuscular Hemoglobin 29.9 pg (27.0-31.0); Mean Corpuscular Volume 92.8 fl (80.0-94.0); Mean Platelet Volume 8.8 fL (7.4-10.4); Platelet Count 144 thou/uL (130-400); RBC Distribution Width 12.4 % (11.5-14.5); Red Blood Cell (RBC) Count 4.24 mill/uL (4.70-6.10); White Blood Cell (WBC) Count 6.2 thou/uL (4.8-10.8)
[2017-09-03 08:19] LABS: PTT 28.9 SEC (22.9-36.1); Prothrombin Time 13.8 SEC (12.0-14.7)
[2017-09-03 08:31] LABS: ALT (SGPT) 72 U/L (8-55); AST (SGOT) 73 U/L (5-34); Albumin 4.3 g/dL (3.5-5.0); Alkaline Phosphatase 427 U/L (40-150); Bilirubin, Direct 0.8 mg/dL (0.1-0.3); Bilirubin, Total 2.4 mg/dL (0.2-1.2)
[2017-09-03] MEDS ORDERED: Fentanyl 100 MCG/2 ML VIAL ONE (08:53)
[2017-09-03] MEDS ORDERED: Midazolam HCl 2 mg/2 ml Vial ONE (08:53)
[2017-09-03] MEDS ORDERED: Sodium Bicarbonate 2.5 MEQ/5 ML VIAL ONE (08:54)
[2017-09-03] MEDS ORDERED: Lidocaine 1% PF 5 ML VIAL ONE (08:54)
--- NOTE | 2017-09-03 10:08 | ULT ---
ULTRASOUND GUIDED LIVER BIOPSY: HISTORY: Abnormal liver function tests. COMPARISON: Gallbladder ultrasound 04/27/17. TECHNIQUE/FINDINGS: The patient was brought to the ultrasound suite. All questions were answered. The patient's abdomen was prepped and draped in normal sterile fashion. Informed consent was obtaine d. Timeout was performed. FINDINGS: Five mL of buffered Lidocaine was instilled into the superficial and deep soft tissues. Using an 18- gauge needle, a total of two 22 mm cores were obtained. The patient tolerated the procedure well wit hout complication. IMPRESSION: Technically successful ultrasound-guided liver biopsy. POS: [facility]RAIN
[2017-09-03 10:15] VITALS: TEMP 98
[2017-09-03 10:17] VITALS: BMI 23.3
[2017-09-03 10:20] VITALS: BP 142/73
== END 2017-09-03 10:50 | disposition home or self-care (01) ==
LOC: ULT 07:42
PROVIDERS: ATTEND Internal Medicine Gastroenterology
PROC: 0FB23ZX Excision of Left Lobe Liver, Percutaneous Approach, Diagnostic (ICD-10-PCS; principal; 2017-09-03)
DX: R79.89 Other specified abnormal findings of blood chemistry (principal); Z79.899 Other long term (current) drug therapy
CPT/HCPCS: 36415; 47000; 76942; 80076; 85025; 85610; 85730; 88307; 88313; J2001; J2250; J3010

== ENCOUNTER 2023-05-24 17:05 | Inpatient (IN) | payer MEDICARE, MEDICAID ==
[2023-05-24] MEDS ORDERED: Calcium Carbonate 500 MG ChewTAB PO PRN (18:23)
[2023-05-24] MEDS ORDERED: Acetaminophen 325 MG TAB PO PRN (18:23)
[2023-05-24] MEDS ORDERED: Loperamide HCl 2 MG CAP PO PRN ×2 (18:23)
[2023-05-24] MEDS ORDERED: HumaLOG 300 UNITS/3 ML VIAL SC PRN ×2 (18:25)
[2023-05-24] MEDS ORDERED: Dextrose 50% Abboject 50 ML SYRINGE SLOW IVP PRN (18:25)
[2023-05-24] MEDS ORDERED: Dextrose 5% in Water 1,000 ML IV PRN (18:25)
[2023-05-24] MEDS ORDERED: Glucagon 1 MG/ML KIT IM PRN (18:25)
[2023-05-24] MEDS: Lactated Ringer's 1,000 ML IV SCH (19:38)
[2023-05-24] MEDS: Dextrose 5 %-0.45 % NaCl 1,000 ML IV SCH (20:15)
[2023-05-24] MEDS ORDERED: Morphine IR 10 MG/5 ML UDCUP PO SCH (21:00)
[2023-05-24] MEDS ORDERED: Famotidine/PF 20 mg/2ml Vial SLOW IVP SCH (21:00)
[2023-05-24] MEDS ORDERED: Ipratropium/Albuterol 3 ML NEB NEB PRN (21:05)
[2023-05-24] MEDS: Cefepime 1 GM in Sodium Chloride 0.9% 100 ML IVPB SCH (21:57)
[2023-05-24] MEDS: Azithromycin 500 MG in Sodium Chloride 0.9% 250 ML 250 ML IVPB SCH (21:57)
[2023-05-24 22:24] LABS: Anion Gap 12 mmol/L (10-20); BUN (Urea Nitrogen) 22 mg/dL (8.4-25.7); Calc. Creatinine Clearance 33 mL/min (70-130); Calcium 8.9 mg/dL (7.8-10.44); Carbon Dioxide 34 mmol/L (23-31); Chloride 104 mmol/L (98-107); Estimated GFR 33; Glucose 112 mg/dL (80-115); Magnesium 2.5 mg/dL (1.6-2.6); Potassium 3.6 mmol/L (3.5-5.1); Sodium 146 mmol/L (136-145)
[2023-05-24] MEDS: Ondansetron PF 4 MG/2 ML Vial IVP PRN (23:30)
[2023-05-25 00:03] LABS: SARS-CoV-2 E Target Negative; SARS-CoV-2 N2 Target Negative; SARS-CoV-2 NAA Rapid Test Not Detected (NotDetected); SARS-CoV-2 RdRP gene Negative
[2023-05-25 04:09] LABS: Legionella Urinary Ag Negative (Negative); Strep pneumo Urine Ag NEGATIVE (NEGATIVE)
[2023-05-25 04:18] LABS: #Monocytes 0.5 thou/uL (0.11-0.59); #Neutrophils 5.9 thou/uL (1.40-6.50); %Basophils 0.1 % (0.0-1.0); %Eosinophils 0.4 % (0.0-10.0); %Lymphocytes 17.6 % (21.0-51.0); %Monocytes 5.8 % (0.0-10.0); %Neutrophils 75.8 % (42.0-75.0); Hematocrit 36.7 % (42.0-52.0); Hemoglobin 11.9 g/dL (14.0-18.0); Mean Corpuscular HGB CONC 32.4 g/dL (32.0-36.0); Mean Corpuscular Hemoglobin 29.2 pg (27.0-31.0); Mean Corpuscular Volume 90.2 fl (78.0-98.0); Mean Platelet Volume 10.8 fL (7.4-10.4); Platelet Count 215 10x3/uL (130-400); RBC Distribution Width 15.2 % (11.5-14.5); Red Blood Cell (RBC) Count 4.07 mill/uL (4.70-6.10); White Blood Cell (WBC) Count 7.7 10x3/uL (4.8-10.8)
[2023-05-25 04:45] LABS: ALT (SGPT) 79 U/L (8-55); AST (SGOT) 92 U/L (5-34); Albumin 3.4 g/dL (3.4-4.8); Alkaline Phosphatase 210 U/L (40-110); Anion Gap 10 mmol/L (10-20); BUN (Urea Nitrogen) 20 mg/dL (8.4-25.7); Bilirubin, Total 0.9 mg/dL (0.2-1.2); CRP (Inflammatory) 2.29 mg/dL (= or < 0.5); Calc. Creatinine Clearance 36 mL/min (70-130); Calcium 8.6 mg/dL (7.8-10.44); Carbon Dioxide 30 mmol/L (23-31); Chloride 106 mmol/L (98-107); Estimated GFR 35; Glucose 123 mg/dL (80-115); Magnesium 2.3 mg/dL (1.6-2.6); Phosphorus 2.2 mg/dL (2.3-4.7); Potassium 3.5 mmol/L (3.5-5.1); Protein, Total 6.4 g/dL (5.8-8.1); Sodium 142 mmol/L (136-145)
[2023-05-25] MEDS: Multivitamin W/ Minerals 1 TAB PO SCH (08:36)
[2023-05-25] MEDS: OLANZapine 5 MG TAB PO SCH (08:36)
[2023-05-25] MEDS: Enoxaparin 30 MG (0.3 mL) SYRINGE SC SCH (08:41)
[2023-05-25] MEDS ORDERED: TEDUGLUTIDE 5 MG SC SCH (09:00)
[2023-05-25] MEDS: Cholestyramine/Aspartame 4 gm Packet PO SCH (09:47)
[2023-05-25] MEDS: Floranex 1 GM Packet PO SCH (09:47)
[2023-05-25] MEDS: Pancrelipase DR 12,000 1 CAP PO SCH (09:48)
[2023-05-25] MEDS: Azithromycin 500 MG in Sodium Chloride 0.9% 250 ML 250 ML IVPB SCH (09:48)
[2023-05-25] MEDS: Morphine 20 MG/ML Oral Solution (ROXANOL) PO SCH (15:00)
[2023-05-25] MEDS: Dextrose 5 %-0.45 % NaCl 1,000 ML IV SCH (21:22)
[2023-05-25] MEDS: Benzonatate 100 MG CAP PO PRN (21:51)
[2023-05-25] MEDS: Cefdinir 125 MG/5 ML Oral Suspension PO SCH (21:51)
[2023-05-25] MEDS: Cefdinir 300 MG CAP PO SCH (21:52)
[2023-05-26 04:45] LABS: #Eosinphils 0.1 thou/uL (0.0-0.7); #Monocytes 0.5 thou/uL (0.11-0.59); #Neutrophils 6.6 thou/uL (1.40-6.50); %Basophils 0.3 % (0.0-1.0); %Eosinophils 0.8 % (0.0-10.0); %Lymphocytes 20.6 % (21.0-51.0); %Monocytes 5.1 % (0.0-10.0); Hematocrit 35.6 % (42.0-52.0); Hemoglobin 11.5 g/dL (14.0-18.0); Mean Corpuscular HGB CONC 32.3 g/dL (32.0-36.0); Mean Corpuscular Hemoglobin 29.6 pg (27.0-31.0); Mean Corpuscular Volume 91.8 fl (78.0-98.0); Mean Platelet Volume 10.9 fL (7.4-10.4); Platelet Count 197 10x3/uL (130-400); RBC Distribution Width 15.2 % (11.5-14.5); Red Blood Cell (RBC) Count 3.88 mill/uL (4.70-6.10)
[2023-05-26 06:05] LABS: ALT (SGPT) 64 U/L (8-55); AST (SGOT) 48 U/L (5-34); Albumin 3.2 g/dL (3.4-4.8); Alkaline Phosphatase 203 U/L (40-110); Anion Gap 16 mmol/L (10-20); BUN (Urea Nitrogen) 20 mg/dL (8.4-25.7); Bilirubin, Total 0.7 mg/dL (0.2-1.2); Calc. Creatinine Clearance 47 mL/min (70-130); Calcium 8.5 mg/dL (7.8-10.44); Carbon Dioxide 22 mmol/L (23-31); Chloride 110 mmol/L (98-107); Estimated GFR 48; Globulin 2.8 g/dL (2.4-3.5); Glucose 86 mg/dL (80-115); Potassium 3.7 mmol/L (3.5-5.1); Sodium 144 mmol/L (136-145)
[2023-05-26] MEDS: Cefdinir 125 MG/5 ML Oral Suspension PO SCH (09:19)
[2023-05-26] MEDS: Sodium Chloride 0.9% 1,000 ML IV SCH (15:50)
[2023-05-27 07:19] LABS: #Eosinphils 0.1 thou/uL (0.0-0.7); #Monocytes 0.3 thou/uL (0.11-0.59); %Basophils 0.4 % (0.0-1.0); %Lymphocytes 18.5 % (21.0-51.0); %Monocytes 3.6 % (0.0-10.0); %Neutrophils 76.1 % (42.0-75.0); Hematocrit 36.3 % (42.0-52.0); Hemoglobin 11.7 g/dL (14.0-18.0); Mean Corpuscular HGB CONC 32.2 g/dL (32.0-36.0); Mean Corpuscular Hemoglobin 29.3 pg (27.0-31.0); Mean Corpuscular Volume 90.8 fl (78.0-98.0); Mean Platelet Volume 11.1 fL (7.4-10.4); Platelet Count 203 10x3/uL (130-400); RBC Distribution Width 14.6 % (11.5-14.5); White Blood Cell (WBC) Count 7.9 10x3/uL (4.8-10.8)
[2023-05-27 07:57] LABS: ALT (SGPT) 76 U/L (8-55); AST (SGOT) 70 U/L (5-34); Albumin 3.1 g/dL (3.4-4.8); Alkaline Phosphatase 261 U/L (40-110); Anion Gap 12 mmol/L (10-20); BUN (Urea Nitrogen) 24 mg/dL (8.4-25.7); Bilirubin, Total 1.3 mg/dL (0.2-1.2); Calc. Creatinine Clearance 52 mL/min (70-130); Calcium 8.7 mg/dL (7.8-10.44); Carbon Dioxide 22 mmol/L (23-31); Chloride 111 mmol/L (98-107); Estimated GFR 53; Globulin 3.1 g/dL (2.4-3.5); Glucose 82 mg/dL (80-115); Potassium 3.9 mmol/L (3.5-5.1); Protein, Total 6.2 g/dL (5.8-8.1); Sodium 141 mmol/L (136-145)
[2023-05-27] MEDS: Enoxaparin 40 MG (0.4 mL) SYRINGE SC SCH (09:57)
[2023-05-28 05:20] LABS: #Eosinphils 0.1 thou/uL (0.0-0.7); #Monocytes 0.3 thou/uL (0.11-0.59); #Neutrophils 4.6 thou/uL (1.40-6.50); %Basophils 0.1 % (0.0-1.0); %Eosinophils 1.9 % (0.0-10.0); %Lymphocytes 24.7 % (21.0-51.0); %Monocytes 5.1 % (0.0-10.0); %Neutrophils 67.8 % (42.0-75.0); Hematocrit 35.8 % (42.0-52.0); Hemoglobin 11.6 g/dL (14.0-18.0); Mean Corpuscular HGB CONC 32.4 g/dL (32.0-36.0); Mean Corpuscular Hemoglobin 29.1 pg (27.0-31.0); Mean Corpuscular Volume 89.7 fl (78.0-98.0); Mean Platelet Volume 11.2 fL (7.4-10.4); Platelet Count 225 10x3/uL (130-400); RBC Distribution Width 14.5 % (11.5-14.5); Red Blood Cell (RBC) Count 3.99 mill/uL (4.70-6.10); White Blood Cell (WBC) Count 6.7 10x3/uL (4.8-10.8)
[2023-05-28 05:40] LABS: ALT (SGPT) 62 U/L (8-55); AST (SGOT) 38 U/L (5-34); Alkaline Phosphatase 245 U/L (40-110); Anion Gap 12 mmol/L (10-20); BUN (Urea Nitrogen) 22 mg/dL (8.4-25.7); Bilirubin, Total 0.8 mg/dL (0.2-1.2); Calc. Creatinine Clearance 56 mL/min (70-130); Calcium 8.6 mg/dL (7.8-10.44); Carbon Dioxide 24 mmol/L (23-31); Chloride 111 mmol/L (98-107); Estimated GFR 58; Globulin 2.8 g/dL (2.4-3.5); Glucose 77 mg/dL (80-115); Potassium 3.7 mmol/L (3.5-5.1); Protein, Total 5.8 g/dL (5.8-8.1); Sodium 143 mmol/L (136-145)
[2023-05-28 09:50] VITALS: BMI 20.4
[2023-05-28 11:22] VITALS: BP 167/78; TEMP 98.2
== END 2023-05-28 12:48 | disposition home or self-care (01) | DRG 682 ==
LOC: 2NO 17:05 → OBSVTOIN 18:23
PROVIDERS: ADMIT Internal Medicine; ATTEND Internal Medicine
DX: N17.9 Acute kidney failure, unspecified (principal); J18.9 Pneumonia, unspecified organism; E87.0 Hyperosmolality and hypernatremia; K90.829 Short bowel syndrome, unspecified; E70.30 Albinism, unspecified; E86.0 Dehydration; F25.9 Schizoaffective disorder, unspecified; Z88.1 Allergy status to other antibiotic agents; N18.30 Chronic kidney disease, stage 3 unspecified; Z79.899 Other long term (current) drug therapy
CPT/HCPCS: 36415; 36416; 71045; 74230; 80053; 82310; 83735; 84100; 84145; 85025; 86140; 87040; 87449; 87899; J0456; J0692; J1650; J2405; J3490; J7042; J7050; J7120; U0002

== ENCOUNTER 2023-08-13 15:03 | Inpatient (IN) | payer MEDICARE, MEDICAID ==
[2023-08-13 17:08] VITALS: BMI 21.0
[2023-08-13] MEDS ORDERED: Sodium Chloride 0.9% 1,000 ML IV SCH (17:30)
[2023-08-13 18:14] LABS: Bilirubin Negative (Negative); Blood, Urine Negative (Negative); Glucose, Urine (Dipstick) Negative (Negative); Ketone, Urine Trace mg/dL (Negative); Leukocyte Negative (Negative); Nitrite Negative (Negative); Protein, Urine (Dipstick) 30 mg/dL (Neg-Trace); Urobilinogen 0.2 mg/dL (Less than 2); pH, Urine 5.5 (5.0-9.0)
[2023-08-13 18:17] LABS: Bacteria/HPF None Seen HPF (None Seen); RBC/HPF 0-3 HPF (0-3); Squamous Epithelial 0-3 HPF (0-3); WBC/HPF 0-3 HPF (0-3)
[2023-08-13 18:18] LABS: Clarity Clear (Clear)
[2023-08-13 18:46] LABS: ALT (SGPT) 39 U/L (8-55); AST (SGOT) 20 U/L (5-34); Alkaline Phosphatase 196 U/L (40-110); Anion Gap 25 mmol/L (10-20); BUN (Urea Nitrogen) 54 mg/dL (8.4-25.7); Calc. Creatinine Clearance 16 mL/min (70-130); Calcium 9.9 mg/dL (7.8-10.44); Carbon Dioxide 17 mmol/L (23-31); Chloride 105 mmol/L (98-107); Estimated GFR 12; Globulin 3.8 g/dL (2.4-3.5); Glucose 85 mg/dL (80-115); Potassium 5.5 mmol/L (3.5-5.1); Protein, Total 6.8 g/dL (5.8-8.1); Sodium 141 mmol/L (136-145)
[2023-08-13 18:47] LABS: Lactic Acid 5.1 mmol/L (0.5-2.2)
[2023-08-13] MEDS: Sodium Bicarbonate 150 MEQ in Dextrose 5% in Water 1,000 ML IV SCH (18:52)
[2023-08-13 18:55] LABS: Band 8 % (5-11); Burr Cells SLIGHT = 2-5 cells HPF (0-1); Eosinophils 1 % (0-10); Hematocrit 41.3 % (42.0-52.0); Hemoglobin 13.3 g/dL (14.0-18.0); Large Platelets 7.5 % (0-5); Lymphocytes 12 % (21-51); Mean Corpuscular HGB CONC 32.2 g/dL (32.0-36.0); Mean Corpuscular Hemoglobin 29.4 pg (27.0-31.0); Mean Corpuscular Volume 91.2 fL (78.0-98.0); Metamyelocyte 4 % (0-0); Monocytes 5 % (0-10); Neutrophil 71 % (42-75); Nucleated RBC (Manual Ct) 1 % (0); Ovalocytes SLIGHT = 2-5 cells HPF (0-1); Platelet Adequacy Comment Platelets Normal; Platelet Count 167 10x3/uL (130-400); Poikilocytosis SLIGHT = 6-15 cells HPF (0-5); Polychromasia SLIGHT = 2-3 cells HPF (0-2); RBC Distribution Width 14.8 % (11.5-14.5); Red Blood Cell (RBC) Count 4.53 mill/uL (4.70-6.10); Vacuoles SLIGHT
[2023-08-13] MEDS: Piperacillin/Tazobactam 3.375 GM in Sodium Chloride 0.9% 100 ML IVPB SCH ×3 (20:09→23:53)
[2023-08-13] MEDS ORDERED: LACTINEX 1 TAB PO SCH (21:00)
[2023-08-13 21:02] LABS: Anion Gap 19 mmol/L (10-20); BUN (Urea Nitrogen) 52 mg/dL (8.4-25.7); Calc. Creatinine Clearance 18 mL/min (70-130); Calcium 9.4 mg/dL (7.8-10.44); Carbon Dioxide 19 mmol/L (23-31); Chloride 106 mmol/L (98-107); Estimated GFR 14; Glucose 100 mg/dL (80-115); Potassium 5.2 mmol/L (3.5-5.1); Sodium 139 mmol/L (136-145)
[2023-08-13] MEDS: Saccharomyces boulardii 250 MG CAP PO SCH (21:13)
[2023-08-13] MEDS: Famotidine/PF 20 mg/2ml Vial SLOW IVP SCH (21:13)
[2023-08-13] MEDS: Morphine IR 10 MG/5 ML UDCUP PO SCH (22:23)
[2023-08-14 06:20] LABS: Hematocrit 36.5 % (42.0-52.0); Hemoglobin 12.1 g/dL (14.0-18.0); Mean Corpuscular HGB CONC 33.2 g/dL (32.0-36.0); Mean Corpuscular Hemoglobin 29.2 pg (27.0-31.0); Mean Platelet Volume 12.3 fL (7.4-10.4); Platelet Count 181 10x3/uL (130-400); RBC Distribution Width 14.5 % (11.5-14.5); Red Blood Cell (RBC) Count 4.15 mill/uL (4.70-6.10)
[2023-08-14 06:28] LABS: ALT (SGPT) 34 U/L (8-55); AST (SGOT) 19 U/L (5-34); Albumin 2.8 g/dL (3.4-4.8); Alkaline Phosphatase 188 U/L (40-110); Anion Gap 18 mmol/L (10-20); BUN (Urea Nitrogen) 46 mg/dL (8.4-25.7); Bilirubin, Total 3.4 mg/dL (0.2-1.2); Calc. Creatinine Clearance 23 mL/min (70-130); Calcium 9.4 mg/dL (7.8-10.44); Carbon Dioxide 23 mmol/L (23-31); Chloride 103 mmol/L (98-107); Estimated GFR 20; Globulin 3.7 g/dL (2.4-3.5); Glucose 97 mg/dL (80-115); Potassium 4.9 mmol/L (3.5-5.1); Protein, Total 6.5 g/dL (5.8-8.1); Sodium 139 mmol/L (136-145)
[2023-08-14 06:29] LABS: Lactic Acid 1.4 mmol/L (0.5-2.2)
[2023-08-14 07:53] LABS: Band 24 % (5-11); Large Platelets 2.9 % (0-5); Lymphocytes 11 % (21-51); Monocytes 4 % (0-10); Neutrophil 61 % (42-75); Platelet Adequacy Comment Platelets Normal; RBC Morphology Within Normal Limits; Reactive Lymphocytes 1 % (0-10)
[2023-08-14] MEDS: Cholecalciferol 1,000 UNITS (25 MCG) TAB PO SCH (08:56)
[2023-08-14] MEDS: OLANZapine 5 MG TAB PO SCH (08:56)
[2023-08-14] MEDS: Folic Acid 1 MG TAB PO SCH (08:57)
[2023-08-14] MEDS: Morphine IR 10 MG/5 ML UDCUP PO SCH (08:57)
[2023-08-14] MEDS: Pantoprazole DR 40 MG TAB PO SCH (08:57)
[2023-08-14] MEDS: Cholestyramine/Aspartame 4 gm Packet PO SCH ×2 (08:57→10:42)
[2023-08-14] MEDS: SYSTANE 0.3-0.4% EYE DROPS (30 ML) EA EYE SCH (08:57)
[2023-08-14] MEDS: Multivitamin W/ Minerals 1 TAB PO SCH (08:59)
[2023-08-14] MEDS: TEDUGLUTIDE 5 MG SC SCH (10:42)
[2023-08-14] MEDS: Dextrose 5 % And 0.9 % NaCl 1,000 ML IV SCH (11:03)
[2023-08-14 14:39] VITALS: BMI 21.0
[2023-08-14] MEDS ORDERED: Famotidine/PF 20 mg/2ml Vial SLOW IVP SCH (21:00)
[2023-08-15 05:27] LABS: #Basophils Less than 0.03 10x3/uL (0.0-0.2); %Basophils 0.2 % (0.0-1.0); %Eosinophils 0.3 % (0.0-10.0); %Lymphocytes 15.9 % (21.0-51.0); %Monocytes 9.4 % (0.0-10.0); %Neutrophils 73.4 % (42.0-75.0); Hemoglobin 12.1 g/dL (14.0-18.0); Mean Corpuscular HGB CONC 33.6 g/dL (32.0-36.0); Mean Corpuscular Volume 86.3 fL (78.0-98.0); Mean Platelet Volume 11.1 fL (7.4-10.4); Platelet Count 180 10x3/uL (130-400); RBC Distribution Width 14.3 % (11.5-14.5); Red Blood Cell (RBC) Count 4.17 mill/uL (4.70-6.10)
[2023-08-15 06:07] LABS: Anion Gap 15 mmol/L (10-20); BUN (Urea Nitrogen) 28 mg/dL (8.4-25.7); Calc. Creatinine Clearance 38 mL/min (70-130); Calcium 9.4 mg/dL (7.8-10.44); Carbon Dioxide 27 mmol/L (23-31); Chloride 105 mmol/L (98-107); Estimated GFR 36; Glucose 115 mg/dL (80-115); Potassium 3.7 mmol/L (3.5-5.1); Sodium 143 mmol/L (136-145)
[2023-08-15] MEDS: Ondansetron PF 4 MG/2 ML Vial IVP PRN (07:05)
[2023-08-15] MEDS: Piperacillin/Tazobactam 3.375 GM in Sodium Chloride 0.9% 100 ML IVPB SCH (20:09)
[2023-08-16] MEDS: hydrALAZINE 20 MG/ML VIAL SLOW IVP SCH (00:51)
[2023-08-16 06:14] LABS: #Basophils Less than 0.03 10x3/uL (0.0-0.2); %Basophils 0.2 % (0.0-1.0); %Eosinophils 1.4 % (0.0-10.0); %Lymphocytes 19.3 % (21.0-51.0); %Monocytes 10.5 % (0.0-10.0); %Neutrophils 65.4 % (42.0-75.0); Hematocrit 36.5 % (42.0-52.0); Mean Corpuscular HGB CONC 32.9 g/dL (32.0-36.0); Mean Corpuscular Hemoglobin 29.6 pg (27.0-31.0); Mean Corpuscular Volume 90.1 fL (78.0-98.0); Mean Platelet Volume 11.2 fL (7.4-10.4); Platelet Count 183 10x3/uL (130-400); RBC Distribution Width 14.3 % (11.5-14.5); Red Blood Cell (RBC) Count 4.05 mill/uL (4.70-6.10)
[2023-08-16 06:55] LABS: Anion Gap 13 mmol/L (10-20); BUN (Urea Nitrogen) 20 mg/dL (8.4-25.7); Calc. Creatinine Clearance 53 mL/min (70-130); Calcium 8.9 mg/dL (7.8-10.44); Carbon Dioxide 24 mmol/L (23-31); Chloride 111 mmol/L (98-107); Estimated GFR 53; Glucose 110 mg/dL (80-115); Potassium 3.8 mmol/L (3.5-5.1); Sodium 144 mmol/L (136-145)
[2023-08-16] MEDS: Dextrose 5 % And 0.9 % NaCl 1,000 ML IV SCH (12:17)
[2023-08-16] MEDS ORDERED: Loperamide HCl 2 MG CAP PO PRN (16:06)
[2023-08-16] MEDS: Loperamide HCl 2 MG CAP PO SCH (17:23)
[2023-08-17 06:15] LABS: #Basophils 0.04 10x3/uL (0.0-0.2); %Basophils 0.5 % (0.0-1.0); %Eosinophils 3.1 % (0.0-10.0); %Lymphocytes 27.2 % (21.0-51.0); %Monocytes 6.1 % (0.0-10.0); %Neutrophils 62.1 % (42.0-75.0); Hematocrit 37.6 % (42.0-52.0); Hemoglobin 12.5 g/dL (14.0-18.0); Mean Corpuscular HGB CONC 33.2 g/dL (32.0-36.0); Mean Corpuscular Hemoglobin 29.4 pg (27.0-31.0); Mean Corpuscular Volume 88.5 fL (78.0-98.0); Mean Platelet Volume 11.2 fL (7.4-10.4); Platelet Count 195 10x3/uL (130-400); RBC Distribution Width 14.2 % (11.5-14.5); Red Blood Cell (RBC) Count 4.25 mill/uL (4.70-6.10)
[2023-08-17 06:36] LABS: Anion Gap 14 mmol/L (10-20); BUN (Urea Nitrogen) 20 mg/dL (8.4-25.7); Calc. Creatinine Clearance 51 mL/min (70-130); Calcium 9.1 mg/dL (7.8-10.44); Carbon Dioxide 24 mmol/L (23-31); Chloride 110 mmol/L (98-107); Estimated GFR 50; Glucose 72 mg/dL (80-115); Potassium 3.8 mmol/L (3.5-5.1); Sodium 144 mmol/L (136-145)
[2023-08-17] MEDS: Loperamide HCl 2 MG CAP PO SCH (08:38)
[2023-08-17] MEDS: Metamucil PACK PO SCH (08:45)
[2023-08-17] MEDS: Multivitamin W/ Minerals 1 TAB PO SCH (14:02)
[2023-08-17 15:16] LABS: Campy jejuni + coli by PCR Negative (Negative); STEC Shiga Toxin 1+2 Negative (Negative); Salmonella spp. by PCR Negative (Negative); Shigella spp + EIEC by PCR Negative (Negative)
[2023-08-18 05:49] LABS: #Basophils 0.04 10x3/uL (0.0-0.2); %Basophils 0.4 % (0.0-1.0); %Eosinophils 2.5 % (0.0-10.0); %Lymphocytes 19.8 % (21.0-51.0); %Monocytes 3.8 % (0.0-10.0); %Neutrophils 73.2 % (42.0-75.0); Hematocrit 38.9 % (42.0-52.0); Hemoglobin 12.6 g/dL (14.0-18.0); Mean Corpuscular HGB CONC 32.4 g/dL (32.0-36.0); Mean Corpuscular Hemoglobin 29.9 pg (27.0-31.0); Mean Corpuscular Volume 92.4 fL (78.0-98.0); Mean Platelet Volume 10.9 fL (7.4-10.4); Platelet Count 186 10x3/uL (130-400); RBC Distribution Width 14.1 % (11.5-14.5); Red Blood Cell (RBC) Count 4.21 mill/uL (4.70-6.10)
[2023-08-18 06:14] LABS: Anion Gap 13 mmol/L (10-20); BUN (Urea Nitrogen) 20 mg/dL (8.4-25.7); Calc. Creatinine Clearance 53 mL/min (70-130); Calcium 8.8 mg/dL (7.8-10.44); Carbon Dioxide 24 mmol/L (23-31); Chloride 110 mmol/L (98-107); Estimated GFR 53; Glucose 86 mg/dL (80-115); Potassium 3.7 mmol/L (3.5-5.1); Sodium 143 mmol/L (136-145)
[2023-08-19 07:01] LABS: Anion Gap 15 mmol/L (10-20); BUN (Urea Nitrogen) 21 mg/dL (8.4-25.7); Calc. Creatinine Clearance 52 mL/min (70-130); Calcium 8.9 mg/dL (7.8-10.44); Carbon Dioxide 24 mmol/L (23-31); Chloride 110 mmol/L (98-107); Estimated GFR 52; Glucose 78 mg/dL (80-115); Potassium 3.9 mmol/L (3.5-5.1); Sodium 145 mmol/L (136-145)
[2023-08-19] MEDS: [UNRECOGNIZED DRUG - OTHER] SC SCH (08:31)
[2023-08-19] MEDS: Dextrose 5 %-0.45 % NaCl 1,000 ML IV SCH (11:13)
[2023-08-20 07:12] LABS: Anion Gap 13 mmol/L (10-20); BUN (Urea Nitrogen) 20 mg/dL (8.4-25.7); Calc. Creatinine Clearance 58 mL/min (70-130); Carbon Dioxide 23 mmol/L (23-31); Chloride 109 mmol/L (98-107); Estimated GFR 59; Glucose 71 mg/dL (80-115); Potassium 3.8 mmol/L (3.5-5.1); Sodium 141 mmol/L (136-145)
[2023-08-20 09:29] VITALS: BP 131/72; TEMP 97.4
== END 2023-08-20 14:35 | disposition home or self-care (01) | DRG 682 ==
LOC: T4-A 16:34
PROVIDERS: ADMIT Family Medicine; ATTEND Internal Medicine
DX: N17.9 Acute kidney failure, unspecified (principal); R65.11 Systemic inflammatory response syndrome (SIRS) of non-infectious origin with acute organ dysfunction; E87.20 Acidosis, unspecified; K90.829 Short bowel syndrome, unspecified; Z93.3 Colostomy status; E86.0 Dehydration; N18.30 Chronic kidney disease, stage 3 unspecified; F25.9 Schizoaffective disorder, unspecified; E87.6 Hypokalemia; E88.09 Other disorders of plasma-protein metabolism, not elsewhere classified; D63.8 Anemia in other chronic diseases classified elsewhere; D72.829 Elevated white blood cell count, unspecified; Z88.0 Allergy status to penicillin; Z79.899 Other long term (current) drug therapy; Z90.49 Acquired absence of other specified parts of digestive tract; Z93.2 Ileostomy status; R19.7 Diarrhea, unspecified
CPT/HCPCS: 36415; 80048; 80053; 81001; 83605; 85025; 87324; 87449; 87505; 97139; J0360; J2405; J2543; J3490; J7042; J7070; S0028

== ENCOUNTER 2023-09-22 17:04 | Inpatient (IN) | payer MEDICARE, MEDICAID ==
[2023-09-22 19:23] LABS: Anion Gap 21 mmol/L (10-20); BUN (Urea Nitrogen) 31 mg/dL (8.4-25.7); Calc. Creatinine Clearance 0 mL/min (70-130); Calcium 7.6 mg/dL (7.8-10.44); Carbon Dioxide 20 mmol/L (23-31); Chloride 104 mmol/L (98-107); Estimated GFR 17; Glucose 99 mg/dL (80-115); Sodium 140 mmol/L (136-145)
[2023-09-22 23:34] LABS: Lactic Acid 3.3 mmol/L (0.5-2.2)
[2023-09-23] MEDS ORDERED: Ondansetron ODT 4 MG TAB PO PRN (06:59)
[2023-09-23] MEDS ORDERED: Acetaminophen 650 MG Suppository PR PRN (06:59)
[2023-09-23] MEDS ORDERED: Ondansetron PF 4 MG/2 ML Vial IVP PRN (06:59)
[2023-09-23] MEDS: Sodium Chloride 0.9% 1,000 ML IV SCH ×2 (08:19→09:54)
[2023-09-23 09:01] LABS: Lactic Acid 1.3 mmol/L (0.5-2.2)
[2023-09-23 09:04] LABS: ALT (SGPT) 74 U/L (8-55); AST (SGOT) 43 U/L (5-34); Albumin 3.1 g/dL (3.4-4.8); Alkaline Phosphatase 173 U/L (40-110); Anion Gap 19 mmol/L (10-20); BUN (Urea Nitrogen) 31 mg/dL (8.4-25.7); Bilirubin, Direct 0.6 mg/dL (0.1-0.3); Bilirubin, Total 1.7 mg/dL (0.2-1.2); Calc. Creatinine Clearance 26 mL/min (70-130); Calcium 7.9 mg/dL (7.8-10.44); Carbon Dioxide 21 mmol/L (23-31); Chloride 104 mmol/L (98-107); Estimated GFR 24; Glucose 78 mg/dL (80-115); Potassium 4.3 mmol/L (3.5-5.1); Protein, Total 6.5 g/dL (5.8-8.1); Sodium 140 mmol/L (136-145)
[2023-09-23 09:10] LABS: Hematocrit 37.3 % (42.0-52.0); Hemoglobin 12.4 g/dL (14.0-18.0); Mean Corpuscular HGB CONC 33.2 g/dL (32.0-36.0); Mean Corpuscular Volume 90.3 fL (78.0-98.0); Mean Platelet Volume 11.9 fL (7.4-10.4); Platelet Count 151 10x3/uL (130-400); Red Blood Cell (RBC) Count 4.13 mill/uL (4.70-6.10)
[2023-09-23] MEDS: Piperacillin/Tazobactam 3.375 GM in Sodium Chloride 0.9% 100 ML IVPB SCH ×2 (09:53→21:28)
[2023-09-23] MEDS: Pantoprazole 40 MG VIAL IVP SCH (09:54)
[2023-09-23 09:56] LABS: Anisocytosis SLIGHT = 6-15 cells HPF (0-5); Band 42 % (5-11); Burr Cells SLIGHT = 2-5 cells HPF (0-1); Lymphocytes 4 % (21-51); Metamyelocyte 4 % (0-0); Monocytes 2 % (0-10); Neutrophil 47 % (42-75); Platelet Adequacy Comment Platelets Normal; Reactive Lymphocytes 1 % (0-10); Reflex for Review?? YES; Schistocytes SLIGHT = 2-5 cells HPF (0-1); Tear Drops SLIGHT = 2-5 cells HPF (0-1); Vacuoles MODERATE
[2023-09-23] MEDS: Acetaminophen 325 MG TAB PO SCH (10:14)
[2023-09-24 06:49] LABS: Hematocrit 38.5 % (42.0-52.0); Hemoglobin 12.7 g/dL (14.0-18.0); Mean Corpuscular Hemoglobin 29.9 pg (27.0-31.0); Mean Corpuscular Volume 90.6 fL (78.0-98.0); Mean Platelet Volume 12.1 fL (7.4-10.4); Platelet Count 141 10x3/uL (130-400); RBC Distribution Width 14.9 % (11.5-14.5); Red Blood Cell (RBC) Count 4.25 mill/uL (4.70-6.10)
[2023-09-24 06:55] LABS: Anion Gap 16 mmol/L (10-20); BUN (Urea Nitrogen) 24 mg/dL (8.4-25.7); Calc. Creatinine Clearance 37 mL/min (70-130); Calcium 8.1 mg/dL (7.8-10.44); Carbon Dioxide 19 mmol/L (23-31); Chloride 111 mmol/L (98-107); Estimated GFR 37; Glucose 70 mg/dL (80-115); Potassium 4.1 mmol/L (3.5-5.1); Sodium 142 mmol/L (136-145)
[2023-09-24 07:41] LABS: Band 26 % (5-11); Burr Cells MODERATE= 6-15 cells HPF (0-1); Eosinophils 3 % (0-10); Large Platelets 2.9 % (0-5); Lymphocytes 10 % (21-51); Monocytes 1 % (0-10); Neutrophil 60 % (42-75); Platelet Adequacy Comment Platelets Normal; Schistocytes SLIGHT = 2-5 cells HPF (0-1)
[2023-09-24] MEDS: Loperamide HCl 2 MG CAP PO PRN (09:01)
[2023-09-24] MEDS: Pantoprazole DR 40 MG TAB PO SCH (09:01)
[2023-09-24] MEDS: Folic Acid 1 MG TAB PO SCH (09:01)
[2023-09-24] MEDS: Loperamide HCl 2 MG CAP PO SCH (10:11)
[2023-09-24] MEDS: Metamucil PACK PO SCH ×2 (10:32→21:59)
[2023-09-24] MEDS: Konsyl 6 gm Packet PO SCH (11:07)
[2023-09-24 12:06] LABS: Campy jejuni + coli by PCR Negative (Negative); STEC Shiga Toxin 1+2 Negative (Negative); Salmonella spp. by PCR Negative (Negative); Shigella spp + EIEC by PCR Negative (Negative)
[2023-09-24] MEDS: Cholestyramine/Aspartame 4 gm Packet PO SCH (16:30)
[2023-09-25 06:16] LABS: Anion Gap 15 mmol/L (10-20); BUN (Urea Nitrogen) 19 mg/dL (8.4-25.7); Calc. Creatinine Clearance 50 mL/min (70-130); Carbon Dioxide 19 mmol/L (23-31); Chloride 109 mmol/L (98-107); Estimated GFR 53; Glucose 71 mg/dL (80-115); Magnesium 1.8 mg/dL (1.6-2.6); Phosphorus 1.8 mg/dL (2.3-4.7); Sodium 139 mmol/L (136-145)
[2023-09-25 06:55] LABS: #Basophils Less than 0.03 10x3/uL (0.0-0.2); %Basophils 0.2 % (0.0-1.0); %Eosinophils 3.5 % (0.0-10.0); %Lymphocytes 20.1 % (21.0-51.0); %Neutrophils 73.1 % (42.0-75.0); Hematocrit 39.3 % (42.0-52.0); Hemoglobin 12.9 g/dL (14.0-18.0); Mean Corpuscular HGB CONC 32.8 g/dL (32.0-36.0); Mean Corpuscular Hemoglobin 29.7 pg (27.0-31.0); Mean Corpuscular Volume 90.6 fL (78.0-98.0); Mean Platelet Volume 11.5 fL (7.4-10.4); Platelet Count 162 10x3/uL (130-400); RBC Distribution Width 14.9 % (11.5-14.5); Red Blood Cell (RBC) Count 4.34 mill/uL (4.70-6.10)
[2023-09-25] MEDS ORDERED: Piperacillin/Tazobactam 3.375 GM in Sodium Chloride 0.9% 100 ML IVPB SCH (18:00)
[2023-09-26 08:05] VITALS: BP 133/68; TEMP 97.7
[2023-09-26 08:54] LABS: #Basophils 0.03 10x3/uL (0.0-0.2); %Basophils 0.5 % (0.0-1.0); %Eosinophils 2.3 % (0.0-10.0); %Lymphocytes 29.5 % (21.0-51.0); %Monocytes 4.2 % (0.0-10.0); %Neutrophils 63.2 % (42.0-75.0); Hematocrit 40.1 % (42.0-52.0); Mean Corpuscular HGB CONC 32.4 g/dL (32.0-36.0); Mean Corpuscular Volume 89.3 fL (78.0-98.0); Platelet Count 187 10x3/uL (130-400); RBC Distribution Width 14.7 % (11.5-14.5); Red Blood Cell (RBC) Count 4.49 mill/uL (4.70-6.10)
[2023-09-26 09:41] LABS: Anion Gap 15 mmol/L (10-20); BUN (Urea Nitrogen) 19 mg/dL (8.4-25.7); Calc. Creatinine Clearance 51 mL/min (70-130); Calcium 9.5 mg/dL (7.8-10.44); Carbon Dioxide 23 mmol/L (23-31); Chloride 112 mmol/L (98-107); Estimated GFR 58; Glucose 78 mg/dL (80-115); Magnesium 1.7 mg/dL (1.6-2.6); Phosphorus 2.4 mg/dL (2.3-4.7); Potassium 4.4 mmol/L (3.5-5.1); Sodium 146 mmol/L (136-145)
== END 2023-09-26 16:15 | disposition home or self-care (01) | DRG 871 ==
LOC: ERS 17:04 → IMCU/EMU 18:43 → SURG A 09-24 17:17
PROVIDERS: ADMIT Internal Medicine; ATTEND Family Medicine
DX: A41.9 Sepsis, unspecified organism (principal); R65.21 Severe sepsis with septic shock; K90.829 Short bowel syndrome, unspecified; N17.9 Acute kidney failure, unspecified; N18.4 Chronic kidney disease, stage 4 (severe); I12.9 Hypertensive chronic kidney disease with stage 1 through stage 4 chronic kidney disease, or unspecified chronic kidney disease; K52.9 Noninfective gastroenteritis and colitis, unspecified; E78.5 Hyperlipidemia, unspecified; F20.9 Schizophrenia, unspecified; I95.9 Hypotension, unspecified; Z79.2 Long term (current) use of antibiotics; Z88.1 Allergy status to other antibiotic agents; Z79.899 Other long term (current) drug therapy; Z98.890 Other specified postprocedural states
CPT/HCPCS: 36415; 80048; 80076; 83605; 83735; 84100; 85025; 85060; 87324; 87449; 87505; 97139; 99285; C9113; J2543; J3490; J7050